=== PATIENT | female | born 1935 | race African-American/Black ===

== ENCOUNTER 2016-08-19 14:42 | Inpatient (IN) | payer OTHER ==
[2016-08-19 15:06] VITALS: BMI 30.8
--- NOTE | 2016-08-19 15:06 | PDOC ---
Rapid Medical Evaluation Chief Complaint: Nausea/Vomiting Time Seen by Provider: 08/19/16 15:01 Medical Evaluation: Allergies Allergy/AdvReac Type Severity Reaction Status Date / Time Penicillins Allergy Intermediate Rash Verified 08/19/16 15:00 oxycodone HCl [From Percocet] AdvReac Intermediate Verified 08/19/16 15:00 prednisone AdvReac Verified 08/19/16 15:00 08/19/16 15:01 [facility] sent patient for nausea and vomiting x 4 days. She is afebrile. Heart rate is normal. No abdominal tenderness. SHe appears well and not dehydrated, however she will require IV hydration, and basic labs. Pt is alert and oriented x 3.
[2016-08-19] MEDS ORDERED: ONDANSETRON 4 MG/2 ML VIAL IVPB ONE (15:44)
[2016-08-19] MEDS ORDERED: SODIUM CHLORIDE 1,000 ML IV SCH (15:45)
--- NOTE | 2016-08-19 15:48 | PDOC ---
History of Present Illness - General Chief Complaint: Nausea/Vomiting Stated Complaint: NAUSEA, VOMITING Time Seen by Provider: 08/19/16 15:01 - History of Present Illness Initial Comments: 08/19/16 15:45 81-year-old female who lives in assisted living, with an aide, who has a past medical history of diabetes, hypothyroidism, GERD, vertigo, CAD with 6 stents, COPD, GERD, prior PE. She is complaining of vomiting off and on all day today, and she states that she can't keep anything down She denies any blood in her vomitus, or coffee-ground material in her vomitus She is also had some diarrhea off and on, for a few days, but more so today She denies any black tarry stool or blood in her diarrhea She is complaining of associated abdominal pain, which she describes as diffuse She denies any chest pain, she denies any fevers or chills, she denies any cough or sputum She states that she feels very tired and weak She states that she took some of her medications today, but not all of her medications but doesn't know which medications she did not take Remainder the review of systems is negative Past History - Past Medical History Allergies/Adverse Reactions: Allergies Allergy/AdvReac Type Severity Reaction Status Date / Time Penicillins Allergy Intermediate Rash Verified 08/19/16 15:00 oxycodone HCl [From Percocet] AdvReac Intermediate Verified 08/19/16 15:00 prednisone AdvReac Verified 08/19/16 15:00 Home Medications: Ambulatory Orders Acetaminophen [Tylenol .Regular Strength -] 650 mg PO Q6H PRN #120 tablet Apixaban [Eliquis -] 5 mg PO BID #180 tablet 04/27/16 Isosorbide Mononitrate [Imdur -] 60 mg PO DAILY #90 tab.sr.24h 04/27/16 Levothyroxine [Synthroid -] 50 mcg PO DAILY@0700 #90 tablet 04/27/16 Losartan Potassium 25 mg PO DAILY #90 tablet 04/27/16 Magnesium Chloride [Slow-Mag -] 64 mg PO DAILY #90 tablet.sa 04/27/16 Meclizine HCl [Antivert -] 12.5 mg PO Q8H PRN #90 tablet 04/27/16 Metoprolol Succinate [Toprol XL -] 100 mg PO DAILY #90 tab.sr.24h 04/27/16 Polyethylene Glycol 3350 [Miralax 119 gm Btl -] 17 gm PO DAILY PRN #90 bottle Ranitidine HCl [Zantac] 150 mg PO HS PRN #90 tablet 04/27/16 Ranolazine [Ranexa] 500 mg PO BID #180 tab.er.12h 04/27/16 Simvastatin 40 mg PO HS #90 tablet 04/27/16 Cholecalciferol (Vitamin D3) [Vitamin D3 -] 4,000 unit PO DAILY 05/31/16 Docusate Sodium [Colace -] 100 mg PO BID 05/31/16 Tiotropium [place] [Spiriva] 1 inh PO DAILY 05/31/16 Lactulose (Oral Use) [Cephulac -] 20 gm PO DAILY udc 06/03/16 Albuterol Sulfate Inhaler - [Ventolin HFA Inhaler -] 1 inh PO Q4H PRN 08/19/16 Glipizide [Glucotrol -] 2.5 mg PO DAILY 08/19/16 Insulin Aspart [Novolog] 0 unit SQ AM 08/19/16 Mag Carb/Al Hydrox/Alginic AC [Gaviscon Extra Strength Liquid] 60 ml PO QID PRN 08/19/16 Phenylephrine HCl [Hemorrhoidal Suppository] 1 each RC HS PRN 08/19/16 Phenylephrine HCl/Witch Lyla [Preparation H Cooling Gel] 51 gm TP DAILY Anemia: No Asthma: Yes Cardiac Disorders: Yes (CAD, Stents, angina) CVA: No COPD: Yes Dementia: No Diabetes: Yes GI Disorders: Yes (esophageal reflux) Disorders: No HTN: Yes Hypercholesterolemia: Yes Liver Disease: No Suicide Attempt (Hx): No Seizures: No Thyroid Disease: Yes (hypo) - Surgical History Abdominal Surgery: Yes Appendectomy: Yes Cardiac Surgery: Yes (STENTS X 5) Cholecystectomy: No Lung Surgery: No Neurologic Surgery: No - Immunization History Immunization Up to Date: Yes - Psycho/Social/Smoking Cessation Hx Anxiety: No Suicidal Ideation: No Smoking Status: No Smoking History: Former smoker Have you smoked in the past 12 months: No Number of Cigarettes Smoked Daily: 0 If you are a former smoker, when did you quit?: 30 yrs ago Cigars Per Day: 0 Information on smoking cessation initiated: No Hx Alcohol Use: No Drug/Substance Use Hx: No Substance Use Type: None Hx Substance Use Treatment: No Review of Systems - Review of Systems Able to Perform ROS?: Yes Comments:: 08/19/16 15:47 12 point review of systems is as per history of present illness and otherwise negative *Physical Exam - Vital Signs Last Vital Signs Temp Pulse Resp BP Pulse Ox 98.3 F 78 20 142/53 95 08/19/16 15:00 08/19/16 15:00 08/19/16 15:00 08/19/16 15:00 08/19/16 15:00 - Physical Exam Comments: 08/19/16 15:47 Physical exam Last Vital Signs Temp Pulse Resp BP Pulse Ox 98.3 F 78 20 142/53 95 08/19/16 15:00 08/19/16 15:00 08/19/16 15:00 08/19/16 15:00 08/19/16 15:00 GENERAL: The patient is awake, alert, and fully oriented, and in no apparent distress. HEAD: Normal with no signs of trauma. EYES: Sclera anicteric, conjunctiva normal ENT: Mucous membranes slightly dry NECK: Normal range of motion, supple LUNGS: Breath sounds equal, clear to auscultation bilaterally. No wheezes, and no crackles. HEART: Regular rate and rhythm, normal S1 and S2 without murmur, rub or gallop. ABDOMEN: Normoactive bowel sounds without hepatosplenomegaly There is mild diffuse abdominal tenderness to palpation without guarding or rebound The abdomen is soft There is no CVA tenderness EXTREMITIES: Normal range of motion, no edema. No clubbing or cyanosis. No cords, erythema, or tenderness. NEUROLOGICAL: Cranial nerves II through XII grossly intact. Normal speech, normal gait. PSYCH: Normal mood, normal affect. SKIN: Warm, Dry, ED Treatment Course - LABORATORY CBC & Chemistry Diagram: 08/19/16 15:40 08/19/16 15:40 - RADIOLOGY Radiology Studies Ordered: Category Date Time Status ABDOMEN & PELVIS CT W/O CONTR [CT] Stat CT Scan 08/19/16 15:42 Ordered Medical Decision Making - Medical Decision Making 08/19/16 16:31 Nausea and vomiting, diarrhea, and abdominal pain and 81-year-old female with a complex past medical history Will start with IV hydration, labwork, and CAT scan EKG Normal sinus rhythm 69, left axis deviation -3 Normal AV and IV conduction time Normal QTC Lateral T-wave inversions are noted Inferior Q waves are noted Poor R wave progression across the anterior precordium is noted When compared to the EKG of 05/31/16 Today's EKG is unchanged from the prior EKG 08/19/16 17:04 Laboratory Results - last 24 hr 08/19/16 15:40 Sodium 143 Potassium 4.8 Chloride 107 Carbon Dioxide 26 Anion Gap 10 BUN 11 Creatinine 1.0 Creat Clearance w eGFR 53.08 Random Glucose 122 H Calcium 8.9 Magnesium 1.7 L Total Bilirubin 0.9 D AST 21 D ALT 9 L D Alkaline Phosphatase 53 Troponin I < 0.02 Total Protein 7.1 Albumin 3.3 L Total Amylase 79 Lipase 97 08/19/16 17:08 SIGN OUT Case discussed in detail with oncoming Emergency Physician including history, physical exam and ancillary studies. Oncoming Emergency Physician has assumed care for the patient and will complete the evaluation and treatment. Transfer of care to at 5 PM awaiting CBC, and CT scan of the abdomen and pelvis *DC/Admit/Observation/Transfer Diagnosis at time of Disposition: Epigastric abdominal pain Nausea & vomiting Qualifiers: Qualified Code(s): R11.2 - Nausea with vomiting, unspecified - Discharge Dispostion Admit: Yes
[2016-08-19] MEDS ORDERED: ONDANSETRON 4 MG/2 ML VIAL ONE (16:04)
[2016-08-19 16:20] LABS: ALBUMIN 3.3 g/dl (3.4-5.0); AMYLASE 79 U/L (25-115); ANION GAP 10 (8-16); CALCIUM 8.9 mg/dL (8.5-10.1); CO2 26 mmol/L (21-32); GLUCOSE,RANDOM 122 mg/dL (74-106); MAGNESIUM 1.7 mg/dL (1.8-2.4); SGPT/ALT 9 U/L (12-78)
[2016-08-19 16:24] LABS: ALK PHOS 53 U/L (45-117); BILIRUBIN,TOTAL 0.9 mg/dL (0.2-1.0); TOT PROT 7.1 g/dl (6.4-8.2); TROPONIN I < 0.02 ng/ml (0.00-0.05)
[2016-08-19 16:58] LABS: BASOPHIL 0.1 % (0-2.0); EOSINOPHIL 1.9 % (0-4.5); MCH 31.3 pg (25.7-33.7); MCHC 32.8 g/dl (32.0-36.0); MEAN CELL VOLUME 95.4 fl (80-96); MEAN PLT VOLUME 10.3 fl (7.5-11.1); NEUTROPHILS 63.6 % (42.8-82.8); PLATELET COUNT 182 K/MM3 (134-434); RDW 14.7 % (11.6-15.6); SGOT/AST 21 U/L (15-37); WHITE BLOOD COUNT 8.2 K/mm3 (4.0-10.0)
--- NOTE | 2016-08-19 19:58 | PDOC ---
History of Present Illness - General Chief Complaint: Nausea/Vomiting Stated Complaint: NAUSEA, VOMITING Time Seen by Provider: 08/19/16 15:01 Past History - Past Medical History Allergies/Adverse Reactions: Allergies Allergy/AdvReac Type Severity Reaction Status Date / Time Penicillins Allergy Intermediate Rash Verified 08/19/16 15:00 oxycodone HCl [From Percocet] AdvReac Intermediate Verified 08/19/16 15:00 prednisone AdvReac Verified 08/19/16 15:00 Home Medications: Ambulatory Orders Acetaminophen [Tylenol .Regular Strength -] 650 mg PO Q6H PRN #120 tablet Apixaban [Eliquis -] 5 mg PO BID #180 tablet 04/27/16 Isosorbide Mononitrate [Imdur -] 60 mg PO DAILY #90 tab.sr.24h 04/27/16 Levothyroxine [Synthroid -] 50 mcg PO DAILY@0700 #90 tablet 04/27/16 Losartan Potassium 25 mg PO DAILY #90 tablet 04/27/16 Magnesium Chloride [Slow-Mag -] 64 mg PO DAILY #90 tablet.sa 04/27/16 Meclizine HCl [Antivert -] 12.5 mg PO Q8H PRN #90 tablet 04/27/16 Metoprolol Succinate [Toprol XL -] 100 mg PO DAILY #90 tab.sr.24h 04/27/16 Polyethylene Glycol 3350 [Miralax 119 gm Btl -] 17 gm PO DAILY PRN #90 bottle Ranitidine HCl [Zantac] 150 mg PO HS PRN #90 tablet 04/27/16 Ranolazine [Ranexa] 500 mg PO BID #180 tab.er.12h 04/27/16 Simvastatin 40 mg PO HS #90 tablet 04/27/16 Cholecalciferol (Vitamin D3) [Vitamin D3 -] 4,000 unit PO DAILY 05/31/16 Docusate Sodium [Colace -] 100 mg PO BID 05/31/16 Tiotropium [place] [Spiriva] 1 inh PO DAILY 05/31/16 Lactulose (Oral Use) [Cephulac -] 20 gm PO DAILY udc 06/03/16 Albuterol Sulfate Inhaler - [Ventolin HFA Inhaler -] 1 inh PO Q4H PRN 08/19/16 Glipizide [Glucotrol -] 2.5 mg PO DAILY 08/19/16 Insulin Aspart [Novolog] 0 unit SQ AM 08/19/16 Mag Carb/Al Hydrox/Alginic AC [Gaviscon Extra Strength Liquid] 60 ml PO QID PRN 08/19/16 Phenylephrine HCl [Hemorrhoidal Suppository] 1 each RC HS PRN 08/19/16 Phenylephrine HCl/Witch Lyla [Preparation H Cooling Gel] 51 gm TP DAILY Anemia: No Asthma: Yes Cardiac Disorders: Yes (CAD, Stents, angina) CVA: No COPD: Yes Dementia: No Diabetes: Yes GI Disorders: Yes (esophageal reflux) Disorders: No HTN: Yes Hypercholesterolemia: Yes Liver Disease: No Suicide Attempt (Hx): No Seizures: No Thyroid Disease: Yes (hypo) - Surgical History Abdominal Surgery: Yes Appendectomy: Yes Cardiac Surgery: Yes (STENTS X 5) Cholecystectomy: No Lung Surgery: No Neurologic Surgery: No - Immunization History Immunization Up to Date: Yes - Psycho/Social/Smoking Cessation Hx Anxiety: No Suicidal Ideation: No Smoking Status: No Smoking History: Former smoker Have you smoked in the past 12 months: No Number of Cigarettes Smoked Daily: 0 If you are a former smoker, when did you quit?: 30 yrs ago Cigars Per Day: 0 Information on smoking cessation initiated: No Hx Alcohol Use: No Drug/Substance Use Hx: No Substance Use Type: None Hx Substance Use Treatment: No *Physical Exam - Vital Signs Last Vital Signs Temp Pulse Resp BP Pulse Ox 98.3 F 74 18 150/72 95 08/19/16 15:00 08/19/16 18:21 08/19/16 18:21 08/19/16 18:21 08/19/16 15:00 ED Treatment Course - LABORATORY CBC & Chemistry Diagram: 08/19/16 15:40 08/19/16 15:40 - ADDITIONAL ORDERS Additional order review: Laboratory Results 08/19/16 15:40 Sodium 143 Potassium 4.8 Chloride 107 Carbon Dioxide 26 Anion Gap 10 BUN 11 Creatinine 1.0 Creat Clearance w eGFR 53.08 Random Glucose 122 H Calcium 8.9 Magnesium 1.7 L Total Bilirubin 0.9 D AST 21 D ALT 9 L D Alkaline Phosphatase 53 Creatine Kinase 121 Troponin I < 0.02 Total Protein 7.1 Albumin 3.3 L Total Amylase 79 Lipase 97 08/19/16 15:40 RBC 4.10 MCV 95.4 MCHC 32.8 RDW 14.7 MPV 10.3 Neutrophils % 63.6 D Lymphocytes % 28.6 D Monocytes % 5.8 Eosinophils % 1.9 Basophils % 0.1 - Medications Given in the ED: ED Medications Discontinued Medications Generic Name Dose Route Start Last Admin Trade Name Freq PRN Reason Stop Dose Admin Ondansetron HCl 4 mg 08/19/16 15:44 08/19/16 16:08 Zofran Injection IVPB 08/19/16 15:45 4 mg ONCE ONE Administration *DC/Admit/Observation/Transfer Diagnosis at time of Disposition: Epigastric pain Nausea and vomiting Qualifiers: Vomiting type: unspecified Vomiting Intractability: non-intractable Qualified Code(s): R11.2 - Nausea with vomiting, unspecified - Discharge Dispostion Admit: Yes
[2016-08-19] MEDS ORDERED: RANITIDINE HCL 150 MG TABLET (FP) PO PRN (21:37)
[2016-08-19] MEDS ORDERED: ALBUTEROL SO4 6.7 GM HFA INHALER IH PRN (21:37)
[2016-08-19] MEDS ORDERED: POLYETHYLENE GLYCOL 3350 119 GM BTL PO PRN (21:37)
[2016-08-19] MEDS ORDERED: MECLIZINE HCL 12.5 MG TABLET PO PRN (21:37)
[2016-08-19] MEDS ORDERED: ACETAMINOPHEN 325 MG TABLET (FP) PO PRN (21:37)
[2016-08-19] MEDS ORDERED: ONDANSETRON 4 MG/2 ML VIAL IVPB PRN (21:44)
--- NOTE | 2016-08-19 21:45 | HP ---
Admitting History and Physical - Primary Care Physician PCP: Liyah Wang S - Admission Chief Complaint: intractable N/V/ abdominal pain History of Present Illness: 81-year-old female who lives in assisted living, with an aide, who has a past medical history of diabetes, hypothyroidism, GERD, vertigo, CAD with 6 stents, COPD, GERD, prior PE. She is complaining of vomiting off and on all day today, and she states that she can't keep anything down. She denies any blood in her vomitus, or coffee- ground material in her vomitus She is also had some diarrhea off and on, for a few days, but more so today. She denies any black tarry stool or blood in her diarrhea She is complaining of associated abdominal pain, which she describes as diffuse She denies any chest pain, she denies any fevers or chills, she denies any cough or sputum She states that she feels very tired and weak She states that she took 6 some of her medications today, but not all of her medications but doesn't know which medications she did not take Remainder the review of systems is negative History Source: Patient, Medical Record Limitations to Obtaining History: No Limitations - Past Medical History Cardiovascular: Yes: CAD, Deep Vein Thrombosis, HTN, Hyperlipdemia Pulmonary: Yes: COPD, Pulmonary Embolus Musculoskeletal: Yes: Chronic low back pain, Osteoarthritis Endocrine: Yes: Diabetes Mellitus, Hypothyroidism - Past Surgical History Past Surgical History: Yes: Stent - Smoking History Smoking history: Former smoker Have you smoked in the past 12 months: No Aproximately how many cigarettes per day: 0 If you are a former smoker, when did you quit?: 30 yrs ago - Alcohol/Substance Use Hx Alcohol Use: No History of Substance Use: reports: None - Social History Usual Living Arrangement: Yes: Assisted Living ADL: Support Services History of Recent Travel: No Home Medications - Allergies Allergies/Adverse Reactions: Allergies Allergy/AdvReac Type Severity Reaction Status Date / Time Penicillins Allergy Intermediate Rash Verified 08/19/16 15:00 oxycodone HCl [From Percocet] AdvReac Intermediate Verified 08/19/16 15:00 prednisone AdvReac Verified 08/19/16 15:00 - Home Medications Home Medications: Ambulatory Orders Acetaminophen [Tylenol .Regular Strength -] 650 mg PO Q6H PRN #120 tablet Apixaban [Eliquis -] 5 mg PO BID #180 tablet 04/27/16 Isosorbide Mononitrate [Imdur -] 60 mg PO DAILY #90 tab.sr.24h 04/27/16 Levothyroxine [Synthroid -] 50 mcg PO DAILY@0700 #90 tablet 04/27/16 Losartan Potassium 25 mg PO DAILY #90 tablet 04/27/16 Magnesium Chloride [Slow-Mag -] 64 mg PO DAILY #90 tablet.sa 04/27/16 Meclizine HCl [Antivert -] 12.5 mg PO Q8H PRN #90 tablet 04/27/16 Metoprolol Succinate [Toprol XL -] 100 mg PO DAILY #90 tab.sr.24h 04/27/16 Polyethylene Glycol 3350 [Miralax 119 gm Btl -] 17 gm PO DAILY PRN #90 bottle Ranitidine HCl [Zantac] 150 mg PO HS PRN #90 tablet 04/27/16 Ranolazine [Ranexa] 500 mg PO BID #180 tab.er.12h 04/27/16 Simvastatin 40 mg PO HS #90 tablet 04/27/16 Cholecalciferol (Vitamin D3) [Vitamin D3 -] 4,000 unit PO DAILY 05/31/16 Docusate Sodium [Colace -] 100 mg PO BID 05/31/16 Tiotropium [place] [Spiriva] 1 inh PO DAILY 05/31/16 Lactulose (Oral Use) [Cephulac -] 20 gm PO DAILY udc 06/03/16 Albuterol Sulfate Inhaler - [Ventolin HFA Inhaler -] 1 inh PO Q4H PRN 08/19/16 Glipizide [Glucotrol -] 2.5 mg PO DAILY 08/19/16 Insulin Aspart [Novolog] 0 unit SQ AM 08/19/16 Mag Carb/Al Hydrox/Alginic AC [Gaviscon Extra Strength Liquid] 60 ml PO QID PRN 08/19/16 Phenylephrine HCl [Hemorrhoidal Suppository] 1 each RC HS PRN 08/19/16 Phenylephrine HCl/Witch Lyla [Preparation H Cooling Gel] 51 gm TP DAILY Family Disease History - Family Disease History Family Disease History: Diabetes: Mother, Brother Review of Systems - Review of Systems Constitutional: reports: Loss of Appetite. denies: Chills, Fever, Lethargy Eyes: denies: Blind Spots, Blurred Vision, Double Vision HENT: denies: Difficult Swallowing, Epistaxis, Nasal Congestion Neck: denies: Stiffness, Tenderness Cardiovascular: denies: Chest Pain, Shortness of Breath Respiratory: denies: Cough, SOB Gastrointestinal: reports: Abdominal Pain, Bloating, Diarrhea, Indigestion, Nausea, Vomiting. denies: Constipation, Dysphagia, Melena, Rectal Bleeding, Vomiting Blood Genitourinary: denies: Dysuria, Flank Pain, Frequency Musculoskeletal: denies: Extremity Pain, Joint Pain Integumentary: denies: Bruising, Erythema Neurological: denies: Change in LOC, Change in Speech, Confusion, Dizziness Endocrine: denies: Unexplained Weight Gain, Unexplained Weight Loss Hematology/Lymphatic: denies: Easily Bruised, Excessive Bleeding Psychiatric: denies: Altered Sleep Pattern, Anxiety, Depression, Suicidal Physical Examination Vital Signs: Vital Signs Temperature 98.3 F 08/19/16 15:00 Pulse Rate 74 08/19/16 18:21 Respiratory Rate 18 08/19/16 18:21 Blood Pressure 150/72 08/19/16 18:21 O2 Sat by Pulse Oximetry (%) 95 08/19/16 15:00 Constitutional: Yes: No Distress, Calm Eyes: Yes: Conjunctiva Clear HENT: Yes: Atraumatic Neck: Yes: Supple Cardiovascular: Yes: Regular Rate and Rhythm Respiratory: Yes: CTA Bilaterally Gastrointestinal: Yes: Soft, Tenderness, Epigastrium. No: Distention, Tenderness, Rebound Renal/: No: CVA Tenderness - Left, CVA Tenderness - Right, Hematuria Musculoskeletal: No: Joint Stiffness, Joint Swelling Extremities: No: Cold, Cool Edema: No Peripheral Pulses WNL: Yes Integumentary: No: Pressure Ulcer, Rash, Venous Stasis Changes Neurological: Yes: WNL, Alert, Oriented ...Motor Strength: WNL Psychiatric: Yes: WNL, Alert, Oriented. No: Agitated, Suicidal Ideation Imaging - Results Other: Report Reviewed Assessment/Plan 81-year-old female who lives in assisted living, with an aide, who has a past medical history of diabetes, hypothyroidism, GERD, vertigo, CAD with 6 stents, COPD, GERD, prior PE. She is complaining of vomiting off and on all day today, and she states that she can't keep anything down also had some diarrhea off and on, for a few days, but more so today Intractable N/V IVF; IV zofran; abdomen CT as ordered IV PPI GI eval clear fluids diet falls decubs DVT PFXd/w pt and staff
[2016-08-19] MEDS ORDERED: DOCUSATE SODIUM 100 MG CAPSULE (FP) PO ONE (22:48)
[2016-08-19] MEDS: DOCUSATE SODIUM 100 MG CAPSULE (FP) PO SCH (23:33)
[2016-08-19] MEDS: RANOLAZINE E.R. 500 MG TABLET (FP) PO SCH (23:33)
[2016-08-19] MEDS: APIXABAN 5 MG TABLET PO SCH (23:33)
[2016-08-19] MEDS: ATORVASTATIN CA 20 MG TABLET (FP) PO SCH (23:33)
[2016-08-20] MEDS: glipiZIDE 5 MG TABLET (FP) PO SCH (06:07)
[2016-08-20] MEDS: LEVOTHYROXINE NA 50 MCG TABLET (FP) PO SCH (06:08)
[2016-08-20] MEDS: SODIUM CHLORIDE 1,000 ML IV SCH (08:00)
[2016-08-20] MEDS: ACLIDINIUM BROMIDE 400 MCG/INH AERO.POWD IH SCH ×3 (10:00→21:58)
[2016-08-20] MEDS: MAGNESIUM CL 64 MG TABLET.SA PO SCH ×2 (10:00→13:50)
[2016-08-20] MEDS ORDERED: PANTOPRAZOLE SODIUM 40 MG in SODIUM CHLORIDE 100 ML IVPB SCH (10:00)
--- NOTE | 2016-08-20 10:31 | PN ---
Progress Note, Physician Chief Complaint: in bed nad on clear fluids diet; tolerated OK, still with stomach discomfort - Current Medication List Current Medications: Active Medications Acetaminophen (Tylenol -) 650 mg PO Q6H PRN PRN Reason: FEVER OR PAIN Aclidinium [place] ([place]udorza -) 1 puff IH BID [facility] Albuterol Sulfate (Ventolin Hfa Inhaler -) 1 puff IH Q4H PRN PRN Reason: SHORT OF BREATH/WHEEZING Apixaban (Eliquis -) 5 mg PO BID [facility] Last Admin: 08/19/16 23:33 Dose: 5 mg Atorvastatin Calcium (Lipitor -) 20 mg PO HS [facility] Last Admin: 08/19/16 23:33 Dose: 20 mg Cholecalciferol (Vitamin D3 -) 4,000 unit PO DAILY [facility] Docusate Sodium (Colace -) 100 mg PO BID [facility] Last Admin: 08/19/16 23:33 Dose: 100 mg Glipizide (Glucotrol -) 2.5 mg PO DAILY@0700 [facility] Last Admin: 08/20/16 06:07 Dose: 2.5 mg Sodium Chloride (Normal Saline -) 1,000 mls @ 100 mls/hr IV ASDIR [facility] Isosorbide Mononitrate (Imdur -) 60 mg PO DAILY [facility] Lactulose (Cephulac (Oral Use)) 20 gm PO DAILY [facility] Levothyroxine Sodium (Synthroid -) 50 mcg PO DAILY@0700 [facility] Last Admin: 08/20/16 06:08 Dose: 50 mcg Losartan Potassium (Cozaar -) 25 mg PO DAILY [facility] Magnesium Chloride (Slow-Mag -) 64 mg PO DAILY [facility] Meclizine HCl (Antivert -) 12.5 mg PO Q8H PRN PRN Reason: VERTIGO Metoprolol Succinate (Toprol Xl -) 100 mg PO DAILY [facility] Ondansetron HCl (Zofran Injection) 4 mg IVPB Q6H PRN PRN Reason: NAUSEA Pantoprazole Sodium (Protonix 40mg Ivpb (Pre-Docked)) 40 mg IVPB DAILY [facility] Polyethylene Glycol (Miralax (For Daily Use) -) 17 gm PO DAILY PRN PRN Reason: CONSTIPATION Ranitidine HCl (Zantac -) 150 mg PO HS PRN PRN Reason: stomach pain Ranolazine (Ranexa -) 500 mg PO BID [facility] Last Admin: 08/19/16 23:33 Dose: 500 mg - Objective Vital Signs: Vital Signs Temperature 98.5 F 08/20/16 06:00 Pulse Rate 72 08/20/16 06:00 Respiratory Rate 18 08/20/16 06:00 Blood Pressure 135/55 08/20/16 06:00 O2 Sat by Pulse Oximetry (%) 96 08/20/16 03:54 Constitutional: Yes: No Distress, Calm Eyes: Yes: Conjunctiva Clear HENT: Yes: Atraumatic Neck: Yes: Supple Cardiovascular: Yes: Regular Rate and Rhythm Respiratory: Yes: CTA Bilaterally Gastrointestinal: Yes: Soft, Tenderness, Epigastrium. No: Distention Genitourinary: No: CVA Tenderness - Left, CVA Tenderness - Right Musculoskeletal: No: Joint Stiffness, Joint Swelling Extremities: No: Cold, Cool Edema: No Peripheral Pulses WNL: Yes Integumentary: No: Rash, Venous Stasis Changes Neurological: Yes: WNL, Alert, Oriented ...Motor Strength: WNL Psychiatric: Yes: WNL, Alert, Oriented. No: Agitated, Suicidal Ideation - ....Imaging Other: Report Reviewed Assessment/Plan 81-year-old female who lives in assisted living, with an aide, who has a past medical history of diabetes, hypothyroidism, GERD, vertigo, CAD with 6 stents, COPD, GERD, prior PE. Intractable N/V and diarrhea IVF; IV zofran; abdomen CT noted IV PPI GI eval clear fluids diet falls decubs DVT PFXd/w pt and staff
[2016-08-20] MEDS: DOCUSATE SODIUM 100 MG CAPSULE (FP) PO SCH ×2 (10:54→21:57)
[2016-08-20] MEDS: LACTULOSE 20 GM/30 ML UDC (FOR ORAL USE ONLY) PO SCH (10:54)
[2016-08-20] MEDS: PANTOPRAZOLE SODIUM 40 MG/100 ML PRE-DOCKED IVPB SCH (10:54)
[2016-08-20] MEDS: CHOLECALCIFEROL (VITAMIN D3) 1,000 UNIT TABLET (FP) PO SCH (10:54)
[2016-08-20] MEDS: APIXABAN 5 MG TABLET PO SCH ×2 (10:55→21:58)
[2016-08-20] MEDS: METOPROLOL SUCCINATE 100 MG TAB.SR.24H (FP) PO SCH (10:55)
[2016-08-20] MEDS: ISOSORBIDE MONONITRATE 60 MG TAB.SR.24H (FP) PO SCH (10:55)
[2016-08-20] MEDS: LOSARTAN POTASSIUM 25 MG TABLET PO SCH (10:55)
[2016-08-20] MEDS: RANOLAZINE E.R. 500 MG TABLET (FP) PO SCH ×2 (10:55→21:58)
[2016-08-20] MEDS ORDERED: PNEUMOC 13-VAL CONJ-DIP CRM/PF 0.5 ML DISP.SYRIN IM ONE (13:00)
[2016-08-20 13:35] LABS: URINE APPEARANCE CLEAR; URINE BILIRUBIN NEGATIVE (NEGATIVE); URINE BLOOD NEGATIVE (NEGATIVE); URINE COLOR YELLOW; URINE GLUCOSE (UA) NEGATIVE (NEGATIVE); URINE KETONE NEGATIVE (NEGATIVE); URINE NITRITE NEGATIVE (NEGATIVE); URINE PROTEIN NEGATIVE (NEGATIVE); URINE UROBILINOGEN NEGATIVE E.U./dl (0.2-1.0)
[2016-08-20 13:36] LABS: URINE LEUK ESTERASE TRACE (NEGATIVE)
[2016-08-20 13:39] LABS: GRANULAR CASTS 1 /lpf; URINE MUCUS RARE; URINE RBC <1 /hpf (0-3); URINE WBC 2 /hpf (3-5)
--- NOTE | 2016-08-20 14:12 | EKG ---
Test Reason : Blood Pressure : / mmHG Vent. Rate : 069 BPM Atrial Rate : 069 BPM P-R Int : 174 ms QRS Dur : 066 ms QT Int : 390 ms P-R-T Axes : 055 -03 108 degrees QTc Int : 417 ms NORMAL SINUS RHYTHM CANNOT RULE OUT INFERIOR INFARCT , AGE UNDETERMINED T WAVE ABNORMALITY, CONSIDER LATERAL ISCHEMIA ABNORMAL ECG WHEN COMPARED WITH ECG OF 31-MAY-2016 17:27, NO SIGNIFICANT CHANGE WAS FOUND Confirmed by DAVID HERNANDEZ MD ([id number]) on 08/20/2016 2:12:22 PM Referred By: Confirmed By:DAVID HERNANDEZ MD
[2016-08-20] MEDS: BACITRACIN 30 GM TUBE TOPICAL OINTMENT TP SCH (15:44)
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
[2016-08-20] MEDS ORDERED: PT OWN MED DRAWER 7, Y5N ONE (21:25)
[2016-08-20] MEDS: ATORVASTATIN CA 20 MG TABLET (FP) PO SCH (21:58)
[2016-08-21] MEDS: glipiZIDE 5 MG TABLET (FP) PO SCH (06:35)
[2016-08-21] MEDS: LEVOTHYROXINE NA 50 MCG TABLET (FP) PO SCH (06:35)
[2016-08-21] MEDS: DOCUSATE SODIUM 100 MG CAPSULE (FP) PO SCH ×2 (10:57→22:38)
[2016-08-21] MEDS: LOSARTAN POTASSIUM 25 MG TABLET PO SCH (10:57)
[2016-08-21] MEDS: METOPROLOL SUCCINATE 100 MG TAB.SR.24H (FP) PO SCH (10:57)
[2016-08-21] MEDS: CHOLECALCIFEROL (VITAMIN D3) 1,000 UNIT TABLET (FP) PO SCH (10:57)
[2016-08-21] MEDS: RANOLAZINE E.R. 500 MG TABLET (FP) PO SCH ×2 (10:57→22:38)
[2016-08-21] MEDS: ISOSORBIDE MONONITRATE 60 MG TAB.SR.24H (FP) PO SCH (10:57)
[2016-08-21] MEDS: PANTOPRAZOLE SODIUM 40 MG/100 ML PRE-DOCKED IVPB SCH (10:58)
[2016-08-21] MEDS: MAGNESIUM CL 64 MG TABLET.SA PO SCH (10:58)
[2016-08-21] MEDS: APIXABAN 5 MG TABLET PO SCH ×2 (10:59→22:38)
[2016-08-21] MEDS: LACTULOSE 20 GM/30 ML UDC (FOR ORAL USE ONLY) PO SCH (10:59)
[2016-08-21] MEDS: SODIUM CHLORIDE 1,000 ML IV SCH (11:00)
[2016-08-21] MEDS: ACLIDINIUM BROMIDE 400 MCG/INH AERO.POWD IH SCH ×2 (11:00→22:38)
[2016-08-21] MEDS: BACITRACIN 30 GM TUBE TOPICAL OINTMENT TP SCH (11:00)
--- NOTE | 2016-08-21 14:25 | PN ---
Progress Note, Physician Chief Complaint: in bed nad feels better tolerated clear fluids diet UGI series ordered per GI - Current Medication List Current Medications: Active Medications Acetaminophen (Tylenol -) 650 mg PO Q6H PRN PRN Reason: FEVER OR PAIN Aclidinium [place] (Tudorza -) 1 puff IH BID [facility] Last Admin: 08/21/16 11:00 Dose: 1 puff Albuterol Sulfate (Ventolin Hfa Inhaler -) 1 puff IH Q4H PRN PRN Reason: SHORT OF BREATH/WHEEZING Apixaban (Eliquis -) 5 mg PO BID [facility] Last Admin: 08/21/16 10:59 Dose: 5 mg Atorvastatin Calcium (Lipitor -) 20 mg PO HS [facility] Last Admin: 08/20/16 21:58 Dose: 20 mg Bacitracin (Bacitracin -) 1 applic TP DAILY [facility] Last Admin: 08/21/16 11:00 Dose: 1 applic Cholecalciferol (Vitamin D3 -) 4,000 unit PO DAILY [facility] Last Admin: 08/21/16 10:57 Dose: 4,000 unit Docusate Sodium (Colace -) 100 mg PO BID [facility] Last Admin: 08/21/16 10:57 Dose: 100 mg Glipizide (Glucotrol -) 2.5 mg PO DAILY@0700 [facility] Last Admin: 08/21/16 06:35 Dose: Not Given Sodium Chloride (Normal Saline -) 1,000 mls @ 100 mls/hr IV ASDIR [facility] Last Admin: 08/21/16 11:00 Dose: Not Given Isosorbide Mononitrate (Imdur -) 60 mg PO DAILY [facility] Last Admin: 08/21/16 10:57 Dose: 60 mg Lactulose (Cephulac (Oral Use)) 20 gm PO DAILY [facility] Last Admin: 08/21/16 10:59 Dose: Not Given Levothyroxine Sodium (Synthroid -) 50 mcg PO DAILY@0700 [facility] Last Admin: 08/21/16 06:35 Dose: Not Given Losartan Potassium (Cozaar -) 25 mg PO DAILY [facility] Last Admin: 08/21/16 10:57 Dose: 25 mg Magnesium Chloride (Slow-Mag -) 64 mg PO DAILY [facility] Last Admin: 08/21/16 10:58 Dose: 64 mg Meclizine HCl (Antivert -) 12.5 mg PO Q8H PRN PRN Reason: VERTIGO Metoprolol Succinate (Toprol Xl -) 100 mg PO DAILY [facility] Last Admin: 08/21/16 10:57 Dose: 100 mg Ondansetron HCl (Zofran Injection) 4 mg IVPB Q6H PRN PRN Reason: NAUSEA Pantoprazole Sodium (Protonix 40mg Ivpb (Pre-Docked)) 40 mg IVPB DAILY [facility] Last Admin: 08/21/16 10:58 Dose: 40 mg Polyethylene Glycol (Miralax (For Daily Use) -) 17 gm PO DAILY PRN PRN Reason: CONSTIPATION Ranitidine HCl (Zantac -) 150 mg PO HS PRN PRN Reason: stomach pain Ranolazine (Ranexa -) 500 mg PO BID [facility] Last Admin: 08/21/16 10:57 Dose: 500 mg - Objective Vital Signs: Vital Signs Temperature 98.4 F 08/21/16 08:35 Pulse Rate 66 08/21/16 08:35 Respiratory Rate 20 08/21/16 08:35 Blood Pressure 160/74 08/21/16 08:35 O2 Sat by Pulse Oximetry (%) 91 L 08/20/16 21:00 Constitutional: Yes: No Distress, Calm Eyes: Yes: Conjunctiva Clear HENT: Yes: Atraumatic Neck: Yes: Supple Cardiovascular: Yes: Regular Rate and Rhythm Respiratory: Yes: CTA Bilaterally Gastrointestinal: Yes: Soft. No: Distention, Tenderness Genitourinary: No: CVA Tenderness - Left, CVA Tenderness - Right Musculoskeletal: No: Joint Stiffness, Joint Swelling Extremities: No: Cold, Cool Edema: No Peripheral Pulses WNL: Yes Neurological: Yes: WNL, Alert, Oriented ...Motor Strength: WNL Psychiatric: Yes: WNL, Alert, Oriented. No: Agitated - ....Imaging Other: Report Reviewed Assessment/Plan 81-year-old female who lives in assisted living, with an aide, who has a past medical history of diabetes, hypothyroidism, GERD, vertigo, CAD with 6 stents, COPD, GERD, prior PE. Intractable N/V and diarrhea IVF; IV zofran; abdomen CT noted IV PPI further w/u per GI clear fluids diet falls decubs DVT PFXd/w pt and staff
[2016-08-21] MEDS ORDERED: LOSARTAN POTASSIUM 25 MG TABLET PO ONE (15:30)
--- NOTE | 2016-08-21 16:11 | PN ---
GI Progress Note Subjective: No acute events Complains of nausea No vomiting reported UGIS limited study as she could not drink enough gastrograffin: no obvious gastric outlet obstruction seen Abdominal US revealed slightly distended GB with sludge and small stones - Objective Vital Signs: Vital Signs Temperature 98.9 F 08/21/16 14:25 Pulse Rate 78 08/21/16 14:25 Respiratory Rate 18 08/21/16 14:25 Blood Pressure 181/82 08/21/16 14:25 O2 Sat by Pulse Oximetry (%) 91 L 08/20/16 21:00 Constitutional: Calm Eyes: No: Sclera Icterus Cardiovascular: Yes: Regular Rate and Rhythm Respiratory: Yes: Diminished (at bases, poorinsp effort) Gastrointestinal Inspection: No: Distention ...Auscultate: Yes: Normoactive Bowel Sounds ...Palpate: Yes: Tenderness (LUQ/RUQ). No: Guarding ...Percussion: No: Tympanitic Labs: No Labs today Problem List - Problems (1) Nausea & vomiting Assessment/Plan: No vomiting, + nausea Trial of low dose reglan If persistent nausea, may need to pursue upper endoscopy with eliquis held if feasible. need clarification iof she has capacity to consent for procedures Code(s): R11.2 - NAUSEA WITH VOMITING, UNSPECIFIED Qualifiers: Vomiting type: unspecified Vomiting Intractability: non-intractable Qualified Code(s): R11.2 - Nausea with vomiting, unspecified
[2016-08-21] MEDS: METOCLOPRAMIDE HCL INJECTION 10 MG/2 ML VIAL IVPB SCH (20:07)
[2016-08-21] MEDS ORDERED: PT OWN MED DRAWER 7, Y5N ONE (21:38)
[2016-08-21] MEDS: ATORVASTATIN CA 20 MG TABLET (FP) PO SCH (22:38)
[2016-08-22] MEDS: METOCLOPRAMIDE HCL INJECTION 10 MG/2 ML VIAL IVPB SCH ×2 (02:27→11:01)
[2016-08-22] MEDS: glipiZIDE 5 MG TABLET (FP) PO SCH (06:37)
[2016-08-22] MEDS: LEVOTHYROXINE NA 50 MCG TABLET (FP) PO SCH (06:37)
[2016-08-22 08:16] LABS: BASOPHIL 0.6 % (0-2.0); EOSINOPHIL 5.2 % (0-4.5); MCH 31.2 pg (25.7-33.7); MCHC 33.2 g/dl (32.0-36.0); MEAN CELL VOLUME 93.9 fl (80-96); MEAN PLT VOLUME 10.5 fl (7.5-11.1); NEUTROPHILS 53.3 % (42.8-82.8); PLATELET COUNT 162 K/MM3 (134-434); RDW 14.3 % (11.6-15.6); WHITE BLOOD COUNT 5.5 K/mm3 (4.0-10.0)
[2016-08-22 09:05] LABS: ALBUMIN 3.2 g/dl (3.4-5.0); BILIRUBIN,TOTAL 0.8 mg/dL (0.2-1.0); CALCIUM 8.7 mg/dL (8.5-10.1); TOT PROT 6.9 g/dl (6.4-8.2)
[2016-08-22 10:14] LABS: URINE APPEARANCE CLEAR; URINE BILIRUBIN NEGATIVE (NEGATIVE); URINE BLOOD NEGATIVE (NEGATIVE); URINE COLOR YELLOW; URINE GLUCOSE (UA) NEGATIVE (NEGATIVE); URINE KETONE NEGATIVE (NEGATIVE); URINE LEUK ESTERASE NEGATIVE (NEGATIVE); URINE NITRITE NEGATIVE (NEGATIVE); URINE PROTEIN NEGATIVE (NEGATIVE); URINE UROBILINOGEN NEGATIVE E.U./dl (0.2-1.0)
[2016-08-22] MEDS ORDERED: PT OWN MED DRAWER 7, Y5N ONE ×2 (10:58→22:00)
[2016-08-22] MEDS: ISOSORBIDE MONONITRATE 60 MG TAB.SR.24H (FP) PO SCH (11:01)
[2016-08-22] MEDS: DOCUSATE SODIUM 100 MG CAPSULE (FP) PO SCH ×2 (11:01→22:31)
[2016-08-22] MEDS: METOPROLOL SUCCINATE 100 MG TAB.SR.24H (FP) PO SCH (11:01)
[2016-08-22] MEDS: RANOLAZINE E.R. 500 MG TABLET (FP) PO SCH ×2 (11:01→22:31)
[2016-08-22] MEDS: CHOLECALCIFEROL (VITAMIN D3) 1,000 UNIT TABLET (FP) PO SCH (11:01)
[2016-08-22] MEDS: APIXABAN 5 MG TABLET PO SCH ×2 (11:02→22:31)
[2016-08-22] MEDS: MAGNESIUM CL 64 MG TABLET.SA PO SCH (11:02)
[2016-08-22] MEDS: LOSARTAN POTASSIUM 25 MG TABLET PO SCH (11:03)
[2016-08-22] MEDS: ACLIDINIUM BROMIDE 400 MCG/INH AERO.POWD IH SCH ×2 (11:40→22:31)
[2016-08-22] MEDS: PANTOPRAZOLE SODIUM 40 MG/100 ML PRE-DOCKED IVPB SCH (11:41)
[2016-08-22] MEDS: BACITRACIN 30 GM TUBE TOPICAL OINTMENT TP SCH (11:46)
--- NOTE | 2016-08-22 12:52 | PN ---
Progress Note, Physician Chief Complaint: in bed seems axox3 today but per H staff last evening she was confused and agitated; UA negative; to check UCx; head CT negative Hungry, no N/V no abdominal pain - Current Medication List Current Medications: Active Medications Acetaminophen (Tylenol -) 650 mg PO Q6H PRN PRN Reason: FEVER OR PAIN Aclidinium [place] (Tudorza -) 1 puff IH BID [facility] Last Admin: 08/22/16 11:40 Dose: 1 puff Albuterol Sulfate (Ventolin Hfa Inhaler -) 1 puff IH Q4H PRN PRN Reason: SHORT OF BREATH/WHEEZING Apixaban (Eliquis -) 5 mg PO BID [facility] Last Admin: 08/22/16 11:02 Dose: 5 mg Atorvastatin Calcium (Lipitor -) 20 mg PO HS [facility] Last Admin: 08/21/16 22:38 Dose: 20 mg Bacitracin (Bacitracin -) 1 applic TP DAILY [facility] Last Admin: 08/22/16 11:46 Dose: 1 applic Cholecalciferol (Vitamin D3 -) 4,000 unit PO DAILY [facility] Last Admin: 08/22/16 11:01 Dose: 4,000 unit Docusate Sodium (Colace -) 100 mg PO BID [facility] Last Admin: 08/22/16 11:01 Dose: 100 mg Glipizide (Glucotrol -) 2.5 mg PO DAILY@0700 [facility] Last Admin: 08/22/16 06:37 Dose: 2.5 mg Isosorbide Mononitrate (Imdur -) 60 mg PO DAILY [facility] Last Admin: 08/22/16 11:01 Dose: 60 mg Levothyroxine Sodium (Synthroid -) 50 mcg PO DAILY@0700 [facility] Last Admin: 08/22/16 06:37 Dose: 50 mcg Losartan Potassium (Cozaar -) 25 mg PO DAILY [facility] Last Admin: 08/22/16 11:03 Dose: 25 mg Magnesium Chloride (Slow-Mag -) 64 mg PO DAILY [facility] Last Admin: 08/22/16 11:02 Dose: 64 mg Metoprolol Succinate (Toprol Xl -) 100 mg PO DAILY [facility] Last Admin: 08/22/16 11:01 Dose: 100 mg Ondansetron HCl (Zofran Injection) 4 mg IVPB Q6H PRN PRN Reason: NAUSEA Pantoprazole Sodium (Protonix 40mg Ivpb (Pre-Docked)) 40 mg IVPB DAILY [facility] Last Admin: 08/22/16 11:41 Dose: 40 mg Polyethylene Glycol (Miralax (For Daily Use) -) 17 gm PO DAILY PRN PRN Reason: CONSTIPATION Ranitidine HCl (Zantac -) 150 mg PO HS PRN PRN Reason: stomach pain Ranolazine (Ranexa -) 500 mg PO BID [facility] Last Admin: 08/22/16 11:01 Dose: 500 mg - Objective Vital Signs: Vital Signs Temperature 98.6 F 08/22/16 10:59 Pulse Rate 73 08/22/16 10:59 Respiratory Rate 20 08/22/16 10:59 Blood Pressure 148/74 08/22/16 10:59 O2 Sat by Pulse Oximetry (%) 94 L 08/21/16 21:00 Constitutional: Yes: No Distress, Calm Eyes: Yes: Conjunctiva Clear HENT: Yes: Atraumatic Neck: Yes: Supple Cardiovascular: Yes: Regular Rate and Rhythm Respiratory: Yes: CTA Bilaterally Gastrointestinal: Yes: Soft. No: Distention, Tenderness Genitourinary: No: CVA Tenderness - Left, CVA Tenderness - Right Musculoskeletal: No: Joint Stiffness, Joint Swelling Extremities: No: Cold, Cool Edema: No Peripheral Pulses WNL: Yes Integumentary: No: Rash, Venous Stasis Changes Neurological: Yes: WNL, Alert, Oriented ...Motor Strength: WNL Psychiatric: Yes: WNL, Alert, Oriented. No: Agitated Labs: CBC, BMP 08/22/16 06:00 08/22/16 06:00 - ....Imaging Other: Report Reviewed Assessment/Plan 81-year-old female who lives in assisted living, with an aide, who has a past medical history of diabetes, hypothyroidism, GERD, vertigo, CAD with 6 stents, COPD, GERD, prior PE. Intractable N/V and diarrhea; improved IVF; IV zofran; IV PPI further w/u per GI advance diet as tolerated psychitary eval for confusion and capacity also d/w pt about HCP she said she would like her friends Keya Cartwright and Ilan Momin to be her HCP and NOK, not her family or relatives; will ask for HCP papers to see is she is able to sign HCP forms. D/w Keya Cartwright she was aware about the above. falls decubs DVT PFXd/w pt and staff
[2016-08-22] MEDS ORDERED: WITCH HAZEL 50% (TUCKS) 40 PAD/JAR PAD TP PRN (16:09)
--- NOTE | 2016-08-22 17:24 | PN ---
GI Progress Note Subjective: GI NOte: Nausea and vomiting has resolved. Asking for more to eat. Dr Wang has already advanced to full liquids for dinner - Objective Vital Signs: Vital Signs Temperature 97.7 F 08/22/16 13:40 Pulse Rate 67 08/22/16 13:40 Respiratory Rate 18 08/22/16 13:40 Blood Pressure 148/74 08/22/16 13:40 O2 Sat by Pulse Oximetry (%) 91 L 08/22/16 11:00 Constitutional: Calm ...Auscultate: Yes: Normoactive Bowel Sounds ...Palpate: Yes: Soft, Other (nontender) Labs: CBC, BMP 08/22/16 06:00 08/22/16 06:00 Assessment/Plan Resolving gastroparesis. Can advance diet as tolerated. Dr Duke wll be covering this weekend. Please call him as needed.
--- NOTE | 2016-08-22 18:14 | CON.PSY ---
Psychiatry Consult Chief Complaint: I am feeling better but have trouble remembering things well. - Previous Psychiatric Treatment Outpatient: None Inpatient: None - Previous Substance Abuse Treatment Outpatient: None Inpatient: None - Current Medications Current Medications: Active Medications Acetaminophen (Tylenol -) 650 mg PO Q6H PRN PRN Reason: FEVER OR PAIN Aclidinium [place] (Tudorza -) 1 puff IH BID [facility] Last Admin: 08/22/16 11:40 Dose: 1 puff Albuterol Sulfate (Ventolin Hfa Inhaler -) 1 puff IH Q4H PRN PRN Reason: SHORT OF BREATH/WHEEZING Apixaban (Eliquis -) 5 mg PO BID [facility] Last Admin: 08/22/16 11:02 Dose: 5 mg Atorvastatin Calcium (Lipitor -) 20 mg PO [facility] Last Admin: 08/21/16 22:38 Dose: 20 mg Bacitracin (Bacitracin -) 1 applic TP DAILY [facility] Last Admin: 08/22/16 11:46 Dose: 1 applic Cholecalciferol (Vitamin D3 -) 4,000 unit PO DAILY [facility] Last Admin: 08/22/16 11:01 Dose: 4,000 unit Docusate Sodium (Colace -) 100 mg PO BID [facility] Last Admin: 08/22/16 11:01 Dose: 100 mg Glipizide (Glucotrol -) 2.5 mg PO DAILY@0700 [facility] Last Admin: 08/22/16 06:37 Dose: 2.5 mg Isosorbide Mononitrate (Imdur -) 60 mg PO DAILY [facility] Last Admin: 08/22/16 11:01 Dose: 60 mg Levothyroxine Sodium (Synthroid -) 50 mcg PO DAILY@0700 [facility] Last Admin: 08/22/16 06:37 Dose: 50 mcg Losartan Potassium (Cozaar -) 50 mg PO DAILY [facility] Magnesium Chloride (Slow-Mag -) 64 mg PO DAILY [facility] Last Admin: 08/22/16 11:02 Dose: 64 mg Metoprolol Succinate (Toprol Xl -) 100 mg PO DAILY [facility] Last Admin: 08/22/16 11:01 Dose: 100 mg Ondansetron HCl (Zofran Injection) 4 mg IVPB Q6H PRN PRN Reason: NAUSEA Pantoprazole Sodium (Protonix 40mg Ivpb (Pre-Docked)) 40 mg IVPB DAILY [facility] Last Admin: 08/22/16 11:41 Dose: 40 mg Polyethylene Glycol (Miralax (For Daily Use) -) 17 gm PO DAILY PRN PRN Reason: CONSTIPATION Ranitidine HCl (Zantac -) 150 mg PO HS PRN PRN Reason: stomach pain Ranolazine (Ranexa -) 500 mg PO BID [facility] Last Admin: 08/22/16 11:01 Dose: 500 mg Witch Lyla/Glycerin (Tucks Pads -) 0 pad TP PRN PRN PRN Reason: HEMORRHOIDS - Allergies Allergies: Allergies Allergy/AdvReac Type Severity Reaction Status Date / Time Penicillins Allergy Intermediate Rash Verified 08/19/16 15:00 oxycodone HCl [From Percocet] AdvReac Intermediate Verified 08/19/16 15:00 prednisone AdvReac Verified 08/19/16 15:00 - Current Living Status Usual Living Arrangement: Assisted Living - Current Mental Status Evaluation Appearance: Well Groomed Attitude: Cooperative - Affect Affect: Constrictive Appropriateness: Appropriate to Content - Mood Mood: Euthymic - Speech/Language Expressive: Coherent - Psychomotor Activity Psychomotor Activity: Normal - Thought Process Thought Process: Intact - Thought Content Hallucinations: Absent Delusions: Absent - Self Perception Self Perception: No Impairment - Cognition Attention: Alert, Diminished Orientation: Time, Person Memory, Immediate Recall: Impaired Memory, Short Term: 1/3 Memory, Remote with Promptin/3 - Concentration Serial Sevens Intact: No Simple Calculations Intact: No - Abstraction Proverb Interpretation: Impaired Judgement: Intact - Insight Insight: Intact - Impulse Control Impulse Control: Good Control - Suicidal Ideation Suicidal Ideation: No - Homicidal Ideation Homicidal Ideation: No Assessment/Plan Patient has the capacity at this time.
[2016-08-22] MEDS: ATORVASTATIN CA 20 MG TABLET (FP) PO SCH (22:31)
[2016-08-23] MEDS: glipiZIDE 5 MG TABLET (FP) PO SCH (06:40)
[2016-08-23] MEDS: LEVOTHYROXINE NA 50 MCG TABLET (FP) PO SCH (06:41)
[2016-08-23] MEDS: PANTOPRAZOLE SODIUM 40 MG/100 ML PRE-DOCKED IVPB SCH (10:53)
[2016-08-23] MEDS: CHOLECALCIFEROL (VITAMIN D3) 1,000 UNIT TABLET (FP) PO SCH (10:54)
[2016-08-23] MEDS: MAGNESIUM CL 64 MG TABLET.SA PO SCH (10:55)
[2016-08-23] MEDS: ISOSORBIDE MONONITRATE 60 MG TAB.SR.24H (FP) PO SCH (10:55)
[2016-08-23] MEDS: LOSARTAN POTASSIUM 50 MG TABLET (FP) PO SCH (10:55)
[2016-08-23] MEDS: APIXABAN 5 MG TABLET PO SCH ×2 (10:55→21:41)
[2016-08-23] MEDS: RANOLAZINE E.R. 500 MG TABLET (FP) PO SCH ×2 (10:55→21:41)
[2016-08-23] MEDS: DOCUSATE SODIUM 100 MG CAPSULE (FP) PO SCH ×2 (10:55→21:40)
[2016-08-23] MEDS: METOPROLOL SUCCINATE 100 MG TAB.SR.24H (FP) PO SCH (10:55)
[2016-08-23] MEDS: ACLIDINIUM BROMIDE 400 MCG/INH AERO.POWD IH SCH ×2 (10:56→21:41)
--- NOTE | 2016-08-23 12:12 | PN ---
Progress Note, Physician Chief Complaint: OOb to chair feels better, advanced diet - Current Medication List Current Medications: Active Medications Acetaminophen (Tylenol -) 650 mg PO Q6H PRN PRN Reason: FEVER OR PAIN Aclidinium [place] (Tudorza -) 1 puff IH BID [facility] Last Admin: 08/23/16 10:56 Dose: 1 puff Albuterol Sulfate (Ventolin Hfa Inhaler -) 1 puff IH Q4H PRN PRN Reason: SHORT OF BREATH/WHEEZING Apixaban (Eliquis -) 5 mg PO BID [facility] Last Admin: 08/23/16 10:55 Dose: 5 mg Atorvastatin Calcium (Lipitor -) 20 mg PO HS [facility] Last Admin: 08/22/16 22:31 Dose: 20 mg Bacitracin (Bacitracin -) 1 applic TP DAILY [facility] Last Admin: 08/22/16 11:46 Dose: 1 applic Cholecalciferol (Vitamin D3 -) 4,000 unit PO DAILY [facility] Last Admin: 08/23/16 10:54 Dose: 4,000 unit Docusate Sodium (Colace -) 100 mg PO BID [facility] Last Admin: 08/23/16 10:55 Dose: 100 mg Glipizide (Glucotrol -) 2.5 mg PO DAILY@0700 [facility] Last Admin: 08/23/16 06:40 Dose: 2.5 mg Isosorbide Mononitrate (Imdur -) 60 mg PO DAILY [facility] Last Admin: 08/23/16 10:55 Dose: 60 mg Levothyroxine Sodium (Synthroid -) 50 mcg PO DAILY@0700 [facility] Last Admin: 08/23/16 06:41 Dose: 50 mcg Losartan Potassium (Cozaar -) 50 mg PO DAILY [facility] Last Admin: 08/23/16 10:55 Dose: 50 mg Magnesium Chloride (Slow-Mag -) 64 mg PO DAILY [facility] Last Admin: 08/23/16 10:55 Dose: 64 mg Metoprolol Succinate (Toprol Xl -) 100 mg PO DAILY [facility] Last Admin: 08/23/16 10:55 Dose: 100 mg Ondansetron HCl (Zofran Injection) 4 mg IVPB Q6H PRN PRN Reason: NAUSEA Pantoprazole Sodium (Protonix 40mg Ivpb (Pre-Docked)) 40 mg IVPB DAILY [facility] Last Admin: 08/23/16 10:53 Dose: 40 mg Polyethylene Glycol (Miralax (For Daily Use) -) 17 gm PO DAILY PRN PRN Reason: CONSTIPATION Ranitidine HCl (Zantac -) 150 mg PO HS PRN PRN Reason: stomach pain Ranolazine (Ranexa -) 500 mg PO BID [facility] Last Admin: 08/23/16 10:55 Dose: 500 mg Witch Lyla/Glycerin (Tucks Pads -) 0 pad TP PRN PRN PRN Reason: HEMORRHOIDS - Objective Vital Signs: Vital Signs Temperature 98.7 F 08/23/16 06:00 Pulse Rate 64 08/23/16 06:00 Respiratory Rate 18 08/23/16 06:00 Blood Pressure 150/75 08/23/16 06:00 O2 Sat by Pulse Oximetry (%) 91 L 08/22/16 21:00 Constitutional: Yes: No Distress, Calm Eyes: Yes: Conjunctiva Clear HENT: Yes: Atraumatic Neck: Yes: Supple Cardiovascular: Yes: Regular Rate and Rhythm Respiratory: Yes: CTA Bilaterally Gastrointestinal: Yes: Soft. No: Distention, Tenderness Genitourinary: No: CVA Tenderness - Left, CVA Tenderness - Right Musculoskeletal: No: Joint Stiffness, Joint Swelling Extremities: No: Cold, Cool Edema: No Peripheral Pulses WNL: Yes Integumentary: No: Rash, Venous Stasis Changes Neurological: Yes: WNL, Alert, Oriented ...Motor Strength: WNL Psychiatric: Yes: WNL, Alert, Oriented. No: Agitated, Suicidal Ideation Labs: CBC, BMP 08/22/16 06:00 08/22/16 06:00 - ....Imaging Other: Report Reviewed Assessment/Plan 81-year-old female who lives in assisted living, with an aide, who has a past medical history of diabetes, hypothyroidism, GERD, vertigo, CAD with 6 stents, COPD, GERD, prior PE. Intractable N/V and diarrhea; improved further w/u per GI advance diet as tolerated psychitary eval for confusion and capacity D/w Keya Cartwright at bedside falls decubs DVT PFX d/w pt and staff
[2016-08-23] MEDS: BACITRACIN 30 GM TUBE TOPICAL OINTMENT TP SCH (18:20)
[2016-08-23] MEDS ORDERED: PT OWN MED DRAWER 7, Y5N ONE (20:47)
[2016-08-23] MEDS: ATORVASTATIN CA 20 MG TABLET (FP) PO SCH (21:41)
[2016-08-24] MEDS: glipiZIDE 5 MG TABLET (FP) PO SCH (06:46)
[2016-08-24] MEDS: LEVOTHYROXINE NA 50 MCG TABLET (FP) PO SCH (06:47)
[2016-08-24] MEDS: ACLIDINIUM BROMIDE 400 MCG/INH AERO.POWD IH SCH ×2 (09:54→21:31)
[2016-08-24] MEDS ORDERED: PT OWN MED DRAWER 7, Y5N ONE ×2 (09:59→20:32)
[2016-08-24] MEDS: DOCUSATE SODIUM 100 MG CAPSULE (FP) PO SCH ×2 (10:03→21:31)
[2016-08-24] MEDS: BACITRACIN 30 GM TUBE TOPICAL OINTMENT TP SCH (10:03)
[2016-08-24] MEDS: METOPROLOL SUCCINATE 100 MG TAB.SR.24H (FP) PO SCH (10:03)
[2016-08-24] MEDS: APIXABAN 5 MG TABLET PO SCH ×2 (10:04→21:30)
[2016-08-24] MEDS: MAGNESIUM CL 64 MG TABLET.SA PO SCH (10:04)
[2016-08-24] MEDS: ISOSORBIDE MONONITRATE 60 MG TAB.SR.24H (FP) PO SCH (10:04)
[2016-08-24] MEDS: RANOLAZINE E.R. 500 MG TABLET (FP) PO SCH ×2 (10:04→21:30)
[2016-08-24] MEDS: LOSARTAN POTASSIUM 50 MG TABLET (FP) PO SCH (10:04)
[2016-08-24] MEDS: PANTOPRAZOLE SODIUM 40 MG/100 ML PRE-DOCKED IVPB SCH (10:04)
[2016-08-24] MEDS: CHOLECALCIFEROL (VITAMIN D3) 1,000 UNIT TABLET (FP) PO SCH (10:04)
--- NOTE | 2016-08-24 12:15 | PN ---
Progress Note, Physician Chief Complaint: OOB feels well had BM no c/o - Current Medication List Current Medications: Active Medications Acetaminophen (Tylenol -) 650 mg PO Q6H PRN PRN Reason: FEVER OR PAIN Aclidinium [place] (Tudorza -) 1 puff IH BID [facility] Last Admin: 08/24/16 09:54 Dose: 1 puff Albuterol Sulfate (Ventolin Hfa Inhaler -) 1 puff IH Q4H PRN PRN Reason: SHORT OF BREATH/WHEEZING Apixaban (Eliquis -) 5 mg PO BID [facility] Last Admin: 08/24/16 10:04 Dose: 5 mg Atorvastatin Calcium (Lipitor -) 20 mg PO HS [facility] Last Admin: 08/23/16 21:41 Dose: 20 mg Bacitracin (Bacitracin -) 1 applic TP DAILY [facility] Last Admin: 08/24/16 10:03 Dose: 1 applic Cholecalciferol (Vitamin D3 -) 4,000 unit PO DAILY [facility] Last Admin: 08/24/16 10:04 Dose: 4,000 unit Docusate Sodium (Colace -) 100 mg PO BID [facility] Last Admin: 08/24/16 10:03 Dose: 100 mg Glipizide (Glucotrol -) 2.5 mg PO DAILY@0700 [facility] Last Admin: 08/24/16 06:46 Dose: 2.5 mg Isosorbide Mononitrate (Imdur -) 60 mg PO DAILY [facility] Last Admin: 08/24/16 10:04 Dose: 60 mg Levothyroxine Sodium (Synthroid -) 50 mcg PO DAILY@0700 [facility] Last Admin: 08/24/16 06:47 Dose: 50 mcg Losartan Potassium (Cozaar -) 50 mg PO DAILY [facility] Last Admin: 08/24/16 10:04 Dose: 50 mg Magnesium Chloride (Slow-Mag -) 64 mg PO DAILY [facility] Last Admin: 08/24/16 10:04 Dose: 64 mg Metoprolol Succinate (Toprol Xl -) 100 mg PO DAILY [facility] Last Admin: 08/24/16 10:03 Dose: 100 mg Ondansetron HCl (Zofran Injection) 4 mg IVPB Q6H PRN PRN Reason: NAUSEA Pantoprazole Sodium (Protonix 40mg Ivpb (Pre-Docked)) 40 mg IVPB DAILY [facility] Last Admin: 08/24/16 10:04 Dose: 40 mg Polyethylene Glycol (Miralax (For Daily Use) -) 17 gm PO DAILY PRN PRN Reason: CONSTIPATION Ranitidine HCl (Zantac -) 150 mg PO HS PRN PRN Reason: stomach pain Ranolazine (Ranexa -) 500 mg PO BID [facility] Last Admin: 08/24/16 10:04 Dose: 500 mg Witch Lyla/Glycerin (Tucks Pads -) 0 pad TP PRN PRN PRN Reason: HEMORRHOIDS Last Admin: 08/24/16 10:04 Dose: 1 applic - Objective Vital Signs: Vital Signs Temperature 98.7 F 08/24/16 09:52 Pulse Rate 61 08/24/16 09:52 Respiratory Rate 20 08/24/16 09:52 Blood Pressure 154/77 08/24/16 09:52 O2 Sat by Pulse Oximetry (%) 96 08/24/16 09:00 Constitutional: Yes: No Distress, Calm Eyes: Yes: Conjunctiva Clear HENT: Yes: Atraumatic Neck: Yes: Supple Cardiovascular: Yes: Regular Rate and Rhythm Respiratory: Yes: CTA Bilaterally Gastrointestinal: Yes: Soft. No: Distention, Tenderness Genitourinary: No: CVA Tenderness - Left, CVA Tenderness - Right Musculoskeletal: No: Joint Stiffness, Joint Swelling Extremities: No: Cold, Cool Edema: No Peripheral Pulses WNL: Yes Integumentary: No: Rash, Venous Stasis Changes Neurological: Yes: WNL, Alert, Oriented ...Motor Strength: WNL Psychiatric: Yes: WNL, Alert, Oriented. No: Agitated, Suicidal Ideation Labs: CBC, BMP 08/22/16 06:00 08/22/16 06:00 - ....Imaging Other: Report Reviewed Assessment/Plan 81-year-old female who lives in assisted living, with an aide, who has a past medical history of diabetes, hypothyroidism, GERD, vertigo, CAD with 6 stents, COPD, GERD, prior PE. Intractable N/V and diarrhea; improved further w/u per GI advance diet as tolerated per psychitary able to make decisions falls decubs DVT PFX major case detective gene in am for disposition d/w pt and staff
[2016-08-24] MEDS: ATORVASTATIN CA 20 MG TABLET (FP) PO SCH (21:30)
[2016-08-25] MEDS: glipiZIDE 5 MG TABLET (FP) PO SCH (06:40)
[2016-08-25] MEDS: LEVOTHYROXINE NA 50 MCG TABLET (FP) PO SCH (06:42)
[2016-08-25] MEDS: METOPROLOL SUCCINATE 100 MG TAB.SR.24H (FP) PO SCH (10:30)
[2016-08-25] MEDS: ISOSORBIDE MONONITRATE 60 MG TAB.SR.24H (FP) PO SCH (10:31)
[2016-08-25] MEDS: DOCUSATE SODIUM 100 MG CAPSULE (FP) PO SCH ×2 (10:31→21:59)
[2016-08-25] MEDS: LOSARTAN POTASSIUM 50 MG TABLET (FP) PO SCH (10:31)
[2016-08-25] MEDS: CHOLECALCIFEROL (VITAMIN D3) 1,000 UNIT TABLET (FP) PO SCH (10:31)
[2016-08-25] MEDS: RANOLAZINE E.R. 500 MG TABLET (FP) PO SCH ×2 (10:31→21:59)
[2016-08-25] MEDS: ACLIDINIUM BROMIDE 400 MCG/INH AERO.POWD IH SCH ×2 (10:31→21:58)
[2016-08-25] MEDS: MAGNESIUM CL 64 MG TABLET.SA PO SCH (10:32)
[2016-08-25] MEDS: APIXABAN 5 MG TABLET PO SCH ×3 (11:10→21:59)
[2016-08-25] MEDS: PANTOPRAZOLE SODIUM 40 MG/100 ML PRE-DOCKED IVPB SCH (11:11)
--- NOTE | 2016-08-25 11:19 | PN ---
Progress Note, Physician Chief Complaint: in bed had hot cereals this morning and feels nauseous, no vomiting but feels like it; said felt same after lunch yesterday. - Current Medication List Current Medications: Active Medications Acetaminophen (Tylenol -) 650 mg PO Q6H PRN PRN Reason: FEVER OR PAIN Aclidinium [employer] (Tudorza -) 1 puff IH BID [facility] Last Admin: 08/25/16 10:31 Dose: Not Given Albuterol Sulfate (Ventolin Hfa Inhaler -) 1 puff IH Q4H PRN PRN Reason: SHORT OF BREATH/WHEEZING Apixaban (Eliquis -) 5 mg PO BID [facility] Last Admin: 08/25/16 11:10 Dose: Not Given Atorvastatin Calcium (Lipitor -) 20 mg PO HS [facility] Last Admin: 08/24/16 21:30 Dose: 20 mg Bacitracin (Bacitracin -) 1 applic TP DAILY [facility] Last Admin: 08/24/16 10:03 Dose: 1 applic Cholecalciferol (Vitamin D3 -) 4,000 unit PO DAILY [facility] Last Admin: 08/25/16 10:31 Dose: 4,000 unit Docusate Sodium (Colace -) 100 mg PO BID [facility] Last Admin: 08/25/16 10:31 Dose: 100 mg Glipizide (Glucotrol -) 2.5 mg PO DAILY@0700 [facility] Last Admin: 08/25/16 06:40 Dose: 2.5 mg Isosorbide Mononitrate (Imdur -) 60 mg PO DAILY [facility] Last Admin: 08/25/16 10:31 Dose: 60 mg Levothyroxine Sodium (Synthroid -) 50 mcg PO DAILY@0700 [facility] Last Admin: 08/25/16 06:42 Dose: 50 mcg Losartan Potassium (Cozaar -) 50 mg PO DAILY [facility] Last Admin: 08/25/16 10:31 Dose: 50 mg Magnesium Chloride (Slow-Mag -) 64 mg PO DAILY [facility] Last Admin: 08/25/16 10:32 Dose: 64 mg Metoclopramide HCl (Reglan -) [address] [facility] Metoprolol Succinate (Toprol Xl -) 100 mg PO DAILY [facility] Last Admin: 08/25/16 10:30 Dose: 100 mg Pantoprazole Sodium (Protonix -) 20 mg PO DAILY [facility] Polyethylene Glycol (Miralax (For Daily Use) -) 17 gm PO DAILY PRN PRN Reason: CONSTIPATION Ranitidine HCl (Zantac -) 150 mg PO HS PRN PRN Reason: stomach pain Ranolazine (Ranexa -) 500 mg PO BID [facility] Last Admin: 08/25/16 10:31 Dose: 500 mg Witch Lyla/Glycerin (Tucks Pads -) 0 pad TP PRN PRN PRN Reason: HEMORRHOIDS Last Admin: 08/24/16 10:04 Dose: 1 applic - Objective Vital Signs: Vital Signs Temperature 98.4 F 08/25/16 10:00 Pulse Rate 68 08/25/16 10:00 Respiratory Rate 20 08/25/16 10:00 Blood Pressure 154/82 08/25/16 10:00 O2 Sat by Pulse Oximetry (%) 94 L 08/24/16 21:00 Constitutional: Yes: No Distress, Calm Eyes: Yes: Conjunctiva Clear HENT: Yes: Atraumatic Neck: Yes: Supple Cardiovascular: Yes: Regular Rate and Rhythm Respiratory: Yes: CTA Bilaterally Gastrointestinal: Yes: Soft. No: Distention, Tenderness Genitourinary: No: CVA Tenderness - Left, CVA Tenderness - Right Musculoskeletal: No: Joint Stiffness, Joint Swelling Extremities: No: Cold, Cool Edema: No Peripheral Pulses WNL: Yes Integumentary: No: Rash, Venous Stasis Changes Neurological: Yes: WNL, Alert, Oriented ...Motor Strength: WNL Psychiatric: Yes: WNL, Alert, Oriented. No: Agitated, Suicidal Ideation Labs: CBC, BMP 08/22/16 06:00 08/22/16 06:00 - ....Imaging Other: Report Reviewed Assessment/Plan 81-year-old female who lives in assisted living, with an aide, who has a past medical history of diabetes, hypothyroidism, GERD, vertigo, CAD with 6 stents, COPD, GERD, prior PE. 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
[2016-08-25] MEDS: BACITRACIN 30 GM TUBE TOPICAL OINTMENT TP SCH (11:24)
[2016-08-25] MEDS ORDERED: PANTOPRAZOLE 20 MG TABLET (FP) PO SCH (11:30)
[2016-08-25] MEDS ORDERED: PANTOPRAZOLE 20 MG TABLET (FP) PO ONE (13:00)
[2016-08-25] MEDS ORDERED: METOCLOPRAMIDE HCL 10 MG TABLET (FP) PO SCH (16:30)
--- NOTE | 2016-08-25 17:55 | PN ---
GI Progress Note Subjective: Vague complaints, complains of nausea that seems to be worsened by "an asthma medicine". no vomiting reported - Objective Vital Signs: Vital Signs Temperature 97.9 F 08/25/16 14:13 Pulse Rate 65 08/25/16 14:13 Respiratory Rate 18 08/25/16 14:13 Blood Pressure 103/53 08/25/16 14:13 O2 Sat by Pulse Oximetry (%) 92 L 08/25/16 09:00 Eyes: No: Sclera Icterus Cardiovascular: Yes: Regular Rate and Rhythm Respiratory: Yes: CTA Bilaterally Gastrointestinal Inspection: No: Distention ...Auscultate: Yes: Normoactive Bowel Sounds ...Palpate: No: Tenderness Neurological: Yes: Alert Labs: CBC, BMP 08/22/16 06:00 08/22/16 06:00 Problem List - Problems (1) Nausea & vomiting Assessment/Plan: No vomiting however with persistent complaints of nausea Medication elimination as feasible Would minimize reglan use and would not keep as standing medication upon discharge EGD for Thursday with Eugene hazel. Discussed potential risks of the procedure with Ms. murray like but not limited to bleeding, perforation requiring surgery to repair, infection and sedation medication effects all of which could be potentially life threatening. She has agreed to the procedure. Code(s): R11.2 - NAUSEA WITH VOMITING, UNSPECIFIED Qualifiers: Vomiting type: unspecified Vomiting Intractability: non-intractable Qualified Code(s): R11.2 - Nausea with vomiting, unspecified
[2016-08-25] MEDS: ATORVASTATIN CA 20 MG TABLET (FP) PO SCH (21:59)
[2016-08-26] MEDS: LEVOTHYROXINE NA 50 MCG TABLET (FP) PO SCH (06:36)
[2016-08-26] MEDS: glipiZIDE 5 MG TABLET (FP) PO SCH (06:37)
[2016-08-26 08:36] LABS: BASOPHIL 0.7 % (0-2.0); EOSINOPHIL 4.9 % (0-4.5); MCH 31.2 pg (25.7-33.7); MCHC 32.7 g/dl (32.0-36.0); MEAN CELL VOLUME 95.3 fl (80-96); MEAN PLT VOLUME 10.1 fl (7.5-11.1); NEUTROPHILS 43.2 % (42.8-82.8); PLATELET COUNT 168 K/MM3 (134-434); RDW 14.4 % (11.6-15.6); WHITE BLOOD COUNT 5.9 K/mm3 (4.0-10.0)
[2016-08-26 08:42] LABS: ALBUMIN 3.1 g/dl (3.4-5.0); CALCIUM 8.8 mg/dL (8.5-10.1)
[2016-08-26 08:45] LABS: BILIRUBIN,TOTAL 0.5 mg/dL (0.2-1.0); TOT PROT 6.6 g/dl (6.4-8.2)
[2016-08-26] MEDS ORDERED: PANTOPRAZOLE 40 MG TABLET (FP) PO SCH (10:00)
[2016-08-26] MEDS ORDERED: PT OWN MED DRAWER 7, Y5N ONE (10:05)
[2016-08-26] MEDS: CHOLECALCIFEROL (VITAMIN D3) 1,000 UNIT TABLET (FP) PO SCH (10:06)
[2016-08-26] MEDS: DOCUSATE SODIUM 100 MG CAPSULE (FP) PO SCH ×2 (10:06→21:13)
[2016-08-26] MEDS: MAGNESIUM CL 64 MG TABLET.SA PO SCH (10:07)
[2016-08-26] MEDS: RANOLAZINE E.R. 500 MG TABLET (FP) PO SCH ×2 (10:07→21:15)
[2016-08-26] MEDS: ACLIDINIUM BROMIDE 400 MCG/INH AERO.POWD IH SCH ×2 (10:07→21:15)
[2016-08-26] MEDS: METOPROLOL SUCCINATE 100 MG TAB.SR.24H (FP) PO SCH (10:07)
[2016-08-26] MEDS: LOSARTAN POTASSIUM 50 MG TABLET (FP) PO SCH (10:07)
[2016-08-26] MEDS: ISOSORBIDE MONONITRATE 60 MG TAB.SR.24H (FP) PO SCH (10:07)
[2016-08-26] MEDS: BACITRACIN 30 GM TUBE TOPICAL OINTMENT TP SCH (10:52)
--- NOTE | 2016-08-26 12:23 | PN ---
Progress Note, Physician Chief Complaint: in bed feels well on soft fluid diet but problems with solid diet for EGD in am; eliquis held since yesterday am (not given yesterday and today d/ w nurse and pt) - Current Medication List Current Medications: Active Medications Acetaminophen (Tylenol -) 650 mg PO Q6H PRN PRN Reason: FEVER OR PAIN Aclidinium [place] (Tudorza -) 1 puff IH BID [facility] Last Admin: 08/26/16 10:07 Dose: Not Given Albuterol Sulfate (Ventolin Hfa Inhaler -) 1 puff IH Q4H PRN PRN Reason: SHORT OF BREATH/WHEEZING Apixaban (Eliquis -) 5 mg PO BID [facility] Last Admin: 08/25/16 11:10 Dose: Not Given Atorvastatin Calcium (Lipitor -) 20 mg PO HS [facility] Last Admin: 08/25/16 21:59 Dose: 20 mg Bacitracin (Bacitracin -) 1 applic TP DAILY [facility] Last Admin: 08/26/16 10:52 Dose: 1 applic Cholecalciferol (Vitamin D3 -) 4,000 unit PO DAILY [facility] Last Admin: 08/26/16 10:06 Dose: 4,000 unit Docusate Sodium (Colace -) 100 mg PO BID [facility] Last Admin: 08/26/16 10:06 Dose: 100 mg Glipizide (Glucotrol -) 2.5 mg PO DAILY@0700 [facility] Last Admin: 08/26/16 06:37 Dose: 2.5 mg Isosorbide Mononitrate (Imdur -) 60 mg PO DAILY [facility] Last Admin: 08/26/16 10:07 Dose: 60 mg Levothyroxine Sodium (Synthroid -) 50 mcg PO DAILY@0700 [facility] Last Admin: 08/26/16 06:36 Dose: 50 mcg Losartan Potassium (Cozaar -) 50 mg PO DAILY [facility] Last Admin: 08/26/16 10:07 Dose: 50 mg Magnesium Chloride (Slow-Mag -) 64 mg PO DAILY [facility] Last Admin: 08/26/16 10:07 Dose: 64 mg Metoprolol Succinate (Toprol Xl -) 100 mg PO DAILY [facility] Last Admin: 08/26/16 10:07 Dose: 100 mg Pantoprazole Sodium (Protonix -) 40 mg PO DAILY [facility] Last Admin: 03/14/17 10:07 Dose: 40 mg Polyethylene Glycol (Miralax (For Daily Use) -) 17 gm PO DAILY PRN PRN Reason: CONSTIPATION Ranitidine HCl (Zantac -) 150 mg PO HS PRN PRN Reason: stomach pain Ranolazine (Ranexa -) 500 mg PO BID [facility] Last Admin: 08/26/16 10:07 Dose: 500 mg Witch Lyla/Glycerin (Tucks Pads -) 0 pad TP PRN PRN PRN Reason: HEMORRHOIDS Last Admin: 08/24/16 10:04 Dose: 1 applic - Objective Vital Signs: Vital Signs Temperature 98.1 F 08/26/16 09:24 Pulse Rate 64 08/26/16 09:24 Respiratory Rate 18 08/26/16 09:24 Blood Pressure 135/68 08/26/16 09:24 O2 Sat by Pulse Oximetry (%) 92 L 08/26/16 09:00 Constitutional: Yes: No Distress, Calm Eyes: Yes: Conjunctiva Clear HENT: Yes: Atraumatic Neck: Yes: Supple Cardiovascular: No: Regular Rate and Rhythm Respiratory: Yes: CTA Bilaterally Gastrointestinal: Yes: Soft. No: Distention, Tenderness Genitourinary: No: CVA Tenderness - Left, CVA Tenderness - Right Musculoskeletal: No: Joint Stiffness, Joint Swelling Extremities: No: Cold, Cool Edema: No Peripheral Pulses WNL: Yes Integumentary: No: Rash, Venous Stasis Changes Neurological: Yes: WNL, Alert, Oriented ...Motor Strength: WNL Psychiatric: Yes: WNL, Alert, Oriented. No: Agitated, Suicidal Ideation Labs: CBC, BMP 08/26/16 07:40 08/26/16 07:40 - ....Imaging Other: Report Reviewed Assessment/Plan 81-year-old female who lives in assisted living, with an aide, who has a past medical history of diabetes, hypothyroidism, GERD, vertigo, CAD with 6 stents, COPD, GERD, prior PE. persistent nausea with full liquids EGD for 3 d/w pt she agrred with the procedure hold eliquisfor 48 hours before the procedure per psychitary pt is able to make decisions falls decubs DVT PFX d/w pt and staff
[2016-08-26] MEDS: ATORVASTATIN CA 20 MG TABLET (FP) PO SCH (21:15)
[2016-08-27] MEDS: ACLIDINIUM BROMIDE 400 MCG/INH AERO.POWD IH SCH ×3 (05:24→22:06)
[2016-08-27] MEDS: glipiZIDE 5 MG TABLET (FP) PO SCH (06:02)
[2016-08-27] MEDS: LEVOTHYROXINE NA 50 MCG TABLET (FP) PO SCH (06:36)
[2016-08-27] MEDS ORDERED: PROPOFOL 60 ML ONE (08:28)
[2016-08-27] MEDS ORDERED: LIDOCAINE HCL/PF 2% SDV 5ML VIAL ONE (08:28)
[2016-08-27] MEDS ORDERED: METOCLOPRAMIDE HCL INJECTION 10 MG/2 ML VIAL IVPB PRN (09:00)
--- NOTE | 2016-08-27 09:02 | PN ---
Progress Note (short form) - Note Progress Note: GI Procedure NOte> Please see scanned EGD report. Antral ulcerations noted as well as mild reflux across a sliding hiatal hernia. 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 Will order small bowel series and resume reglan.
[2016-08-27] MEDS: DOCUSATE SODIUM 100 MG CAPSULE (FP) PO SCH ×3 (12:19→22:05)
[2016-08-27] MEDS: MAGNESIUM CL 64 MG TABLET.SA PO SCH (12:20)
[2016-08-27] MEDS: ISOSORBIDE MONONITRATE 60 MG TAB.SR.24H (FP) PO SCH ×2 (12:20→13:52)
[2016-08-27] MEDS: METOPROLOL SUCCINATE 100 MG TAB.SR.24H (FP) PO SCH ×2 (12:20→13:52)
[2016-08-27] MEDS: LOSARTAN POTASSIUM 50 MG TABLET (FP) PO SCH ×2 (12:20→13:52)
[2016-08-27] MEDS: RANOLAZINE E.R. 500 MG TABLET (FP) PO SCH ×3 (12:20→22:06)
[2016-08-27] MEDS: PANTOPRAZOLE 40 MG TABLET (FP) PO SCH ×3 (12:20→22:06)
[2016-08-27] MEDS: CHOLECALCIFEROL (VITAMIN D3) 1,000 UNIT TABLET (FP) PO SCH ×2 (12:21→13:52)
[2016-08-27] MEDS ORDERED: PT OWN MED DRAWER 7, Y5N ONE (12:22)
[2016-08-27] MEDS: BACITRACIN 30 GM TUBE TOPICAL OINTMENT TP SCH (12:24)
--- NOTE | 2016-08-27 13:23 | PN ---
Progress Note, Physician Chief Complaint: in bed s/p EGD d/w GI who ordered GI series but pt refused for now - Current Medication List Current Medications: Active Medications Acetaminophen (Tylenol -) 650 mg PO Q6H PRN PRN Reason: FEVER OR PAIN Aclidinium [place] (Tudorza -) 1 puff IH BID [facility] Last Admin: 08/27/16 12:23 Dose: Not Given Albuterol Sulfate (Ventolin Hfa Inhaler -) 1 puff IH Q4H PRN PRN Reason: SHORT OF BREATH/WHEEZING Apixaban (Eliquis -) 5 mg PO BID [facility] Last Admin: 08/25/16 11:10 Dose: Not Given Atorvastatin Calcium (Lipitor -) 20 mg PO HS [facility] Last Admin: 08/26/16 21:15 Dose: 20 mg Bacitracin (Bacitracin -) 1 applic TP DAILY [facility] Last Admin: 08/27/16 12:24 Dose: 1 applic Cholecalciferol (Vitamin D3 -) 4,000 unit PO DAILY [facility] Last Admin: 08/27/16 12:21 Dose: Not Given Docusate Sodium (Colace -) 100 mg PO BID [facility] Last Admin: 08/27/16 12:19 Dose: Not Given Glipizide (Glucotrol -) 2.5 mg PO DAILY@0700 [facility] Last Admin: 08/27/16 06:02 Dose: Not Given Isosorbide Mononitrate (Imdur -) 60 mg PO DAILY [facility] Last Admin: 08/27/16 12:20 Dose: Not Given Levothyroxine Sodium (Synthroid -) 50 mcg PO DAILY@0700 [facility] Last Admin: 08/27/16 06:36 Dose: 50 mcg Losartan Potassium (Cozaar -) 50 mg PO DAILY [facility] Last Admin: 08/27/16 12:20 Dose: Not Given Magnesium Chloride (Slow-Mag -) 64 mg PO DAILY [facility] Last Admin: 08/27/16 12:20 Dose: Not Given Metoclopramide HCl (Reglan Injection -) 10 mg IVPB Q6H PRN PRN Reason: NAUSEA AND/OR VOMITING Metoprolol Succinate (Toprol Xl -) 100 mg PO DAILY [facility] Last Admin: 08/27/16 12:20 Dose: Not Given Pantoprazole Sodium (Protonix -) 40 mg PO BID [facility] Last Admin: 08/27/16 12:20 Dose: Not Given Polyethylene Glycol (Miralax (For Daily Use) -) 17 gm PO DAILY PRN PRN Reason: CONSTIPATION Ranolazine (Ranexa -) 500 mg PO BID [facility] Last Admin: 08/27/16 12:20 Dose: Not Given Witch Lyla/Glycerin (Tucks Pads -) 0 pad TP PRN PRN PRN Reason: HEMORRHOIDS Last Admin: 08/24/16 10:04 Dose: 1 applic - Objective Vital Signs: Vital Signs Temperature 97.5 F L 08/27/16 08:47 Pulse Rate 66 08/27/16 09:17 Respiratory Rate 14 08/27/16 09:17 Blood Pressure 156/68 08/27/16 09:17 O2 Sat by Pulse Oximetry (%) 96 08/27/16 09:17 Constitutional: Yes: No Distress, Calm Eyes: Yes: Conjunctiva Clear HENT: Yes: Atraumatic Neck: Yes: Supple Cardiovascular: Yes: Regular Rate and Rhythm Respiratory: Yes: CTA Bilaterally Gastrointestinal: Yes: Soft. No: Distention, Tenderness Genitourinary: No: Hematuria Musculoskeletal: No: Joint Stiffness, Joint Swelling Extremities: No: Cold, Cool Edema: No Peripheral Pulses WNL: Yes Integumentary: No: Rash, Venous Stasis Changes Neurological: Yes: WNL, Alert, Oriented ...Motor Strength: WNL Psychiatric: Yes: WNL, Alert, Oriented. No: Agitated, Suicidal Ideation Labs: CBC, BMP 08/26/16 07:40 08/26/16 07:40 - ....Imaging Other: Report Reviewed Assessment/Plan 81-year-old female who lives in assisted living, with an aide, who has a past medical history of diabetes, hypothyroidism, GERD, vertigo, CAD with 6 stents, COPD, GERD, prior PE. persistent nausea with full liquids s/p EGD, GI series per GI restart eliquis when OK with GI hold eliquisfor 48 hours before the procedure per psychitary pt is able to make decisions falls decubs DVT PFX d/w pt and staff
[2016-08-27] MEDS: ATORVASTATIN CA 20 MG TABLET (FP) PO SCH (22:05)
[2016-08-28] MEDS: glipiZIDE 5 MG TABLET (FP) PO SCH (06:43)
[2016-08-28] MEDS: LEVOTHYROXINE NA 50 MCG TABLET (FP) PO SCH (06:43)
[2016-08-28] MEDS: CHOLECALCIFEROL (VITAMIN D3) 1,000 UNIT TABLET (FP) PO SCH (09:36)
[2016-08-28] MEDS: RANOLAZINE E.R. 500 MG TABLET (FP) PO SCH (09:37)
[2016-08-28] MEDS: DOCUSATE SODIUM 100 MG CAPSULE (FP) PO SCH (09:37)
[2016-08-28] MEDS: METOPROLOL SUCCINATE 100 MG TAB.SR.24H (FP) PO SCH (09:37)
[2016-08-28] MEDS: PANTOPRAZOLE 40 MG TABLET (FP) PO SCH (09:37)
[2016-08-28] MEDS: BACITRACIN 30 GM TUBE TOPICAL OINTMENT TP SCH (09:38)
[2016-08-28] MEDS: ISOSORBIDE MONONITRATE 60 MG TAB.SR.24H (FP) PO SCH (09:38)
[2016-08-28] MEDS: LOSARTAN POTASSIUM 50 MG TABLET (FP) PO SCH (09:38)
[2016-08-28] MEDS: MAGNESIUM CL 64 MG TABLET.SA PO SCH (09:38)
[2016-08-28] MEDS: ACLIDINIUM BROMIDE 400 MCG/INH AERO.POWD IH SCH (09:39)
--- NOTE | 2016-08-28 09:58 | DS ---
Physical Examination Vital Signs: Vital Signs Temperature 98.7 F 08/28/16 06:00 Pulse Rate 64 08/28/16 06:00 Respiratory Rate 18 08/28/16 06:00 Blood Pressure 142/67 08/28/16 06:00 O2 Sat by Pulse Oximetry (%) 94 L 08/27/16 21:00 Findings/Remarks: pt scheduled today for SB series but she refused them, d/w pt indications and risks and consequneces she is aware but does not wnat to do them, as she also refused them yesterday; said she ate regular food well, feels well, no GI c/o; will be DC to SNF [facility] has a bed d/w CM; f/u with GI prn Constitutional: Yes: No Distress, Calm Eyes: Yes: Conjunctiva Clear HENT: Yes: Atraumatic Neck: Yes: Supple Cardiovascular: Yes: Regular Rate and Rhythm Respiratory: Yes: CTA Bilaterally Gastrointestinal: Yes: Soft. No: Distention, Tenderness Renal/: No: Hematuria Musculoskeletal: No: Joint Stiffness, Joint Swelling Extremities: No: Calf Tenderness, Cold, Cool, Cyanosis Edema: No Peripheral Pulses WNL: Yes Integumentary: No: Rash, Venous Stasis Changes Neurological: Yes: WNL, Alert, Oriented ...Motor Strength: WNL Psychiatric: Yes: WNL, Alert, Oriented. No: Agitated, Suicidal Ideation Labs: CBC, BMP 08/26/16 07:40 08/26/16 07:40 Discharge Summary Reason For Visit: EPIGASTRIC PAIN/NAUSEA AND VOMITING Current Active Problems Diastolic dysfunction without heart failure (Acute) Epigastric abdominal pain (Acute) Nausea & vomiting (Acute) Vertigo (Acute) Procedures: Principal: intractable N/V Other Procedures: GI eval, EGD per GI Hospital Course: Reglan po; pt refused SB series; DC to SNF for PT rehab; f/u as advised. Condition: Improved - Instructions Diet, Activity, Other Instructions: f/u PCP and GI and cardiology in 2-4 weeks after DC home outpt SB series if pt agrees to have them; meds as ordered falls PFX RTER if worse or recurrent c/o Referrals: Miguel Wang MD [Primary Care Provider] - Casimiro Salguero MD [Staff Physician] - Daniel Farris MD [Staff Physician] - Disposition: LONGTERM FACILITY - Home Medications Comprehensive Discharge Medication List: Ambulatory Orders Acetaminophen [Tylenol .Regular Strength -] 650 mg PO Q6H PRN #120 tablet Apixaban [Eliquis -] 5 mg PO BID #180 tablet 04/27/16 Isosorbide Mononitrate [Imdur -] 60 mg PO DAILY #90 tab.sr.24h 04/27/16 Levothyroxine [Synthroid -] 50 mcg PO DAILY@0700 #90 tablet 04/27/16 Losartan Potassium 25 mg PO DAILY #90 tablet 04/27/16 Magnesium Chloride [Slow-Mag -] 64 mg PO DAILY #90 tablet.sa 04/27/16 Meclizine HCl [Antivert -] 12.5 mg PO Q8H PRN #90 tablet 04/27/16 Metoprolol Succinate [Toprol XL -] 100 mg PO DAILY #90 tab.sr.24h 04/27/16 Polyethylene Glycol 3350 [Miralax 119 gm Btl -] 17 gm PO DAILY PRN #90 bottle Ranitidine HCl [Zantac] 150 mg PO HS PRN #90 tablet 04/27/16 Ranolazine [Ranexa] 500 mg PO BID #180 tab.er.12h 04/27/16 Simvastatin 40 mg PO HS #90 tablet 04/27/16 Cholecalciferol (Vitamin D3) [Vitamin D3 -] 4,000 unit PO DAILY 05/31/16 Docusate Sodium [Colace -] 100 mg PO BID 05/31/16 Tiotropium [place] [Spiriva] 1 inh PO DAILY 05/31/16 Lactulose (Oral Use) [Cephulac -] 20 gm PO DAILY [facility] 06/03/16 Albuterol Sulfate Inhaler - [Ventolin HFA Inhaler -] 1 inh PO Q4H PRN 08/19/16 Glipizide [Glucotrol -] 2.5 mg PO DAILY 08/19/16 Insulin Aspart [Novolog] 0 unit SQ AM 08/19/16 Mag Carb/Al Hydrox/Alginic AC [Gaviscon Extra Strength Liquid] 60 ml PO QID PRN 08/19/16 Phenylephrine HCl [Hemorrhoidal Suppository] 1 each RC HS PRN 08/19/16 Phenylephrine HCl/Witch Lyla [Preparation H Cooling Gel] 51 gm TP DAILY
[2016-08-28 10:50] VITALS: BP 185/80; PULSE 66; TEMP 98.5
--- NOTE | 2016-08-28 13:12 | PATH ---
Surgical Pathology Report Patient Name: FANG PERDOMO [facility]. Rec. #: [id number] /Age/Gender: 1935 (Age: 81) / F Account: [id number] Location: [address] [place] [address] Taken: 08/27/2016 Received: 08/27/2016 Reported: 08/28/2016 Physicians: Casimiro Salguero M.D. Specimen(s) Received A: BX SECOND PORTION DUODENUM AND DUODENAL BULB B: BX ANTRUM Clinical History Nausea and vomiting Erosive gastritis, hiatal hernia Final Diagnosis A. DUODENUM, SECOND PORTION AND BULB, BIOPSY: DUODENAL MUCOSA WITH FOCAL ACTIVE AND CHRONIC INFLAMMATION AND JOSAFAT'S GLANDS HYPERPLASIA. NO HISTOLOGIC EVIDENCE OF GLUTEN SENSITIVE ENTEROPATHY (CELIAC DISEASE). B. STOMACH, ANTRUM, BIOPSY: GASTRIC ANTRAL AND OXYNTIC MUCOSA MODERATE CHRONIC GASTRITIS AND MILD REACTIVE GASTROPATHY. NO H. PYLORI ORGANISMS IDENTIFIED WITH GIEMSA STAIN. Electronically Signed Fredo Anand M.D. Gross Description A. Received in formalin, labeled "biopsy second portion of duodenum and duodenal bulb" are 2 santos, irregular portions of soft tissue measuring 0.4 and 0.5 cm in greatest dimension. The specimens are submitted in toto in one cassette. B. Received in formalin, labeled "biopsy antrum" are 3 santos, irregular portions of soft tissue ranging from 0.2-0.4 cm in greatest dimension. The specimens are submitted in toto in one cassette. /08/27/201608/27/2016
== END 2016-08-28 11:31 | DRG 74 ==
LOC: JER 14:42 → JERBED 19:58 → J5S 23:56
PROVIDERS: ADMIT Internal Medicine; ATTEND Internal Medicine
PROC: 0DB68ZX Excision of Stomach, Via Natural or Artificial Opening Endoscopic, Diagnostic (ICD-10-PCS; 2016-08-27)
PROC: 0DB98ZX Excision of Duodenum, Via Natural or Artificial Opening Endoscopic, Diagnostic (ICD-10-PCS; principal; 2016-08-27 08:00)
DX: E11.43 Type 2 diabetes mellitus with diabetic autonomic (poly)neuropathy (principal); K31.84 Gastroparesis; E03.9 Hypothyroidism, unspecified; K21.9 Gastro-esophageal reflux disease without esophagitis; I25.10 Atherosclerotic heart disease of native coronary artery without angina pectoris; J44.9 Chronic obstructive pulmonary disease, unspecified; E78.5 Hyperlipidemia, unspecified; M54.5 Low back pain; M19.90 Unspecified osteoarthritis, unspecified site; Z95.5 Presence of coronary angioplasty implant and graft; Z87.891 Personal history of nicotine dependence; A63.8 Other specified predominantly sexually transmitted diseases; K22.8 Other specified diseases of esophagus; K44.9 Diaphragmatic hernia without obstruction or gangrene; K25.9 Gastric ulcer, unspecified as acute or chronic, without hemorrhage or perforation; Z86.711 Personal history of pulmonary embolism; Z86.718 Personal history of other venous thrombosis and embolism
CPT/HCPCS: 36415; 70450-TC; 74176-TC; 74247-TC; 76705-TC; 80053; 81003; 81015; 82150; 82550; 83690; 83735; 84484; 85025; 87086; 88305-TC; 90670; 93005; 93010; 97116-GP; 97161-GP; 99284-25; 99285-25

== ENCOUNTER 2016-10-30 16:51 | Emergency (ER) | payer OTHER ==
--- NOTE | 2016-10-30 17:18 | PDOC ---
History of Present Illness - History of Present Illness Initial Comments: 10/30/16 17:44 Patient is an 81 year old female from [facility] with significant medical hx of spinal stenosis, hypothyroidism, AFib, DM, GERD, HTN, HLD, vertigo, CAD s/p stents x 6, COPD, GERD, prior PE and DVT who is presenting to the ED with lower back pain and left hip pain for about a year. Patient complains of lower back pain and left sided hip pain. EMS reports the patient has been limping to her left side. Patient also endorses some numbness to her right leg which appears to be chronic. long-term papers report the patient received an x-ray of the bilateral hip which revealed possible non displaced fracture of the greater trochanter. She was sent to the ED for rule out hip fracture. Patient uses a walker to ambulate. Allergies: oxycodone, penicillins, prednisone <Lorena Augustine - Last Filed: 10/30/16 17:44> <Mary Perez - Last Filed: 10/31/16 00:08> - General Chief Complaint: Pain Stated Complaint: HIP PAIN Time Seen by Provider: 10/30/16 17:03 Past History <Lorena Augustine - Last Filed: 10/30/16 17:44> - Past Medical History Anemia: No Asthma: Yes Cardiac Disorders: Yes (CAD, Stents, angina) CVA: No COPD: Yes Dementia: No Diabetes: Yes GI Disorders: Yes (esophageal reflux) Disorders: No HTN: Yes Hypercholesterolemia: Yes Liver Disease: No Suicide Attempt (Hx): No Seizures: No Thyroid Disease: Yes (hypo) - Surgical History Abdominal Surgery: Yes Appendectomy: Yes Cardiac Surgery: Yes (STENTS X 5) Cholecystectomy: No Lung Surgery: No Neurologic Surgery: No - Immunization History Immunization Up to Date: Yes - Psycho/Social/Smoking Cessation Hx Anxiety: No Suicidal Ideation: No Smoking Status: No Smoking History: Former smoker Have you smoked in the past 12 months: No Number of Cigarettes Smoked Daily: 0 If you are a former smoker, when did you quit?: 30 yrs ago Cigars Per Day: 0 Hx Alcohol Use: No Drug/Substance Use Hx: No Substance Use Type: None Hx Substance Use Treatment: No <Mary Perez - Last Filed: 10/31/16 00:08> - Past Medical History Allergies/Adverse Reactions: Allergies Allergy/AdvReac Type Severity Reaction Status Date / Time Penicillins Allergy Intermediate Rash Verified 08/19/16 15:00 oxycodone HCl [From Percocet] AdvReac Intermediate Verified 08/19/16 15:00 prednisone AdvReac Verified 08/19/16 15:00 Home Medications: Ambulatory Orders Acetaminophen [Tylenol .Regular Strength -] 650 mg PO Q6H PRN #120 tablet Apixaban [Eliquis -] 5 mg PO BID #180 tablet 04/27/16 Isosorbide Mononitrate [Imdur -] 60 mg PO DAILY #90 tab.sr.24h 04/27/16 Levothyroxine [Synthroid -] 50 mcg PO DAILY@0700 #90 tablet 04/27/16 Meclizine HCl [Antivert -] 12.5 mg PO Q8H PRN #90 tablet 04/27/16 Metoprolol Succinate [Toprol XL -] 100 mg PO DAILY #90 tab.sr.24h 04/27/16 Polyethylene Glycol 3350 [Miralax 119 gm Btl -] 17 gm PO DAILY PRN #90 bottle Ranitidine HCl [Zantac] 150 mg PO HS PRN #90 tablet 04/27/16 Ranolazine [Ranexa] 500 mg PO BID #180 tab.er.12h 04/27/16 Simvastatin 40 mg PO HS #90 tablet 04/27/16 Cholecalciferol (Vitamin D3) [Vitamin D3 -] 4,000 unit PO DAILY 05/31/16 Docusate Sodium [Colace -] 100 mg PO BID 05/31/16 Albuterol Sulfate Inhaler - [Ventolin HFA Inhaler -] 1 inh PO Q4H PRN 08/19/16 Glipizide [Glucotrol -] 2.5 mg PO DAILY 08/19/16 Insulin Aspart [Novolog Flexpen] 0 unit SQ AM 08/19/16 Losartan Potassium [Cozaar -] 50 mg PO DAILY tablet 08/28/16 Pantoprazole Sodium [Protonix -] 40 mg PO BID 08/28/16 Insulin Lispro [Humalog] 100 unit SQ AM 10/30/16 Review of Systems - Review of Systems Comments:: 10/30/16 17:46 GENERAL/CONSTITUTIONAL: No fever or chills. No weakness. HEAD, EYES, EARS, NOSE AND THROAT: No change in vision. No ear pain or discharge. No sore throat. CARDIOVASCULAR: No chest pain or shortness of breath. RESPIRATORY: No cough, wheezing, or hemoptysis. GASTROINTESTINAL: No nausea, vomiting, diarrhea or constipation. GENITOURINARY: No dysuria, frequency, or change in urination. MUSCULOSKELETAL: Lower back pain, left hip pain. No neck pain. ENDOCRINE: No increased thirst. No abnormal weight change. SKIN: No rash NEUROLOGIC: Right leg numbness. No headache, vertigo, loss of consciousness, or change in strength. <Lorena Augustine - Last Filed: 10/30/16 17:44> *Physical Exam - Vital Signs Last Vital Signs Temp Pulse Resp BP Pulse Ox 97.7 F 64 18 156/66 95 10/30/16 17:33 10/30/16 17:33 10/30/16 17:33 10/30/16 17:33 10/30/16 17:33 - Physical Exam Comments: 10/30/16 17:48 GENERAL: Awake, alert, and fully oriented, in no acute distress HEAD: No signs of trauma EYES: PERRLA, EOMI, sclera anicteric, conjunctiva clear ENT: Auricles normal inspection, hearing grossly normal, nares patent, oropharynx clear without exudates. Moist mucosa NECK: Normal ROM, supple, no lymphadenopathy, JVD, or masses LUNGS: Breath sounds equal, clear to auscultation bilaterally. No wheezes, and no crackles HEART: Regular rate and rhythm, normal S1 and S2, no murmurs, rubs or gallops ABDOMEN: Soft, nontender, normoactive bowel sounds. No guarding, no rebound. No masses MUSCULOSKELETAL: Left CVA tenderness. Lower spine tenderness. Left hip tenderness. Bilateral hip pain with flexion and extension. EXTREMITIES: Normal range of motion, no edema. No clubbing or cyanosis. No cords, erythema, or tenderness NEUROLOGICAL: Good strength both upper and lower extremities. Sensation intact Cranial nerves II through XII grossly intact. Normal speech SKIN: Warm, Dry, normal turgor, no rashes or lesions noted. HEMATOLOGIC/LYMPHATIC: No anemia, easy bleeding, or history of blood clots. ALLERGIC/IMMUNOLOGIC: No hives or skin allergy. \ <Lorena Augustine - Last Filed: 10/30/16 17:44> Heart Score/ECG Review - ECG Intrepretation Rhythm: Regularly Irregular Comment:: 10/30/16 18:19 rate 67 bpm, TWI I, AVL v4, - v6 <Mary Perez - Last Filed: 10/31/16 00:08> Medical Decision Making - Medical Decision Making 10/30/16 17:14 81 yo F wit h/o HTN afib, OA, hypothyroid, COPD., walks with walker, here from assisted living/ nursing facility with c/o left low back, coccyx pain. pt denies trauma. had xrays performed which were concerning for possible left hip fracture. no new numbness or weakness. states had old injury and ho spinal stenosis, no new weakness or numbness. on physical exam, awake , alert, pt with normal heart and lung exam. left hip ttp, pain with hip flexion, extension bilaterally. sensation intact bilat lower ext. 5/5 bilat lower ext strenth. differential: occult or pathological hip fx, spinal compression fx. plan ls spine xray, hip xrays, possible ct if nondiagnostic. 10/31/16 00:08 ct pelvis no acute fracture. d/w dr pollard will transfer back to nursing facility. <Mary Perez - Last Filed: 10/31/16 00:08> *DC/Admit/Observation/Transfer - Attestations Scribe Attestion: 10/30/16 17:50 Documentation prepared by Lorena Augustine, acting as medical laboratory manager for Mary Perez MD. <Lorena Augustine - Last Filed: 10/30/16 17:44> - Discharge Dispostion Admit: No <Mary Perez - Last Filed: 10/31/16 00:08> Diagnosis at time of Disposition: Hip pain - Discharge Dispostion Disposition: TRANSFER ACUTE CARE/OTHER HOSP Condition at time of disposition: Good
[2016-10-30 17:39] VITALS: BMI 30.9
[2016-10-30 19:31] VITALS: BP 156/79; PULSE 68; TEMP 97.8
--- NOTE | 2016-10-31 16:16 | EKG ---
Test Reason : Blood Pressure : / mmHG Vent. Rate : 067 BPM Atrial Rate : 067 BPM P-R Int : 190 ms QRS Dur : 074 ms QT Int : 406 ms P-R-T Axes : 073 046 164 degrees QTc Int : 429 ms NORMAL SINUS RHYTHM CANNOT RULE OUT ANTERIOR INFARCT , AGE UNDETERMINED T WAVE ABNORMALITY, CONSIDER LATERAL ISCHEMIA ABNORMAL ECG WHEN COMPARED WITH ECG OF 19-AUG-2016 16:20, MINIMAL CRITERIA FOR INFERIOR INFARCT ARE NO LONGER PRESENT NONSPECIFIC T WAVE ABNORMALITY NOW EVIDENT IN INFERIOR LEADS T WAVE INVERSION MORE EVIDENT IN LATERAL LEADS Confirmed by ROSIO HEAD MD ([id number]) on 10/31/2016 4:16:00 PM Referred By: Confirmed By:ROSIO HEAD MD
== END 2016-10-31 02:08 ==
LOC: JER 16:51
DX: M25.552 Pain in left hip (principal); I25.10 Atherosclerotic heart disease of native coronary artery without angina pectoris; I10 Essential (primary) hypertension; Z95.5 Presence of coronary angioplasty implant and graft; I48.91 Unspecified atrial fibrillation; Z79.01 Long term (current) use of anticoagulants; E11.9 Type 2 diabetes mellitus without complications; Z79.4 Long term (current) use of insulin; Z79.84 Long term (current) use of oral hypoglycemic drugs; E03.9 Hypothyroidism, unspecified; E78.00 Pure hypercholesterolemia, unspecified; Z86.718 Personal history of other venous thrombosis and embolism; Z86.711 Personal history of pulmonary embolism; R26.89 Other abnormalities of gait and mobility; Z99.89 Dependence on other enabling machines and devices
CPT/HCPCS: 71010-TC; 72100-TC; 72192-TC; 73502-TC-RT; 73523-TC; 93005; 93010; 99283-25

== ENCOUNTER 2016-11-12 18:32 | Inpatient (IN) | payer OTHER ==
[2016-11-12] MEDS ORDERED: ALBUTEROL SO4 2.5/IPRATROPIUM 0.5 INH SOL 3 ML VIAL.NEB. NEB ONE ×3 (18:44→19:05)
--- NOTE | 2016-11-12 19:04 | PDOC ---
History of Present Illness - General History Source: Patient Exam Limitations: No Limitations - History of Present Illness Initial Comments: 11/12/16 19:07 Patient is an 81 year old female from [facility] with significant medical hx of asthma/COPD, spinal stenosis, hypothyroidism, AFib, DM, GERD, HTN, HLD, vertigo , CAD s/p stents x 6, GERD, prior PE and DVT who is presenting to the ED sent from [place] with cough and chest pain for 3 days. She notes a productive cough with yellow phlegm. Patient reports chest pain with cough. She describes the chest pain as across the chest discomfort. She denies any fever or chills. 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 Callahan PCP - Dr. Liyah Wang <Magi Melendez - Last Filed: 11/12/16 20:34> <Mary Perez - Last Filed: 11/12/16 20:49> - General Chief Complaint: Cold Symptoms Stated Complaint: CHEST PAIN Time Seen by Provider: 11/12/16 18:57 Past History <Magi Melendez - Last Filed: 11/12/16 20:34> - Past Medical History Anemia: No Asthma: Yes Cardiac Disorders: Yes (CAD, Stents, angina) CVA: No COPD: Yes Dementia: No Diabetes: Yes GI Disorders: Yes (esophageal reflux) Disorders: No HTN: Yes Hypercholesterolemia: Yes Liver Disease: No Suicide Attempt (Hx): No Seizures: No Thyroid Disease: Yes (hypo) - Surgical History Abdominal Surgery: Yes Appendectomy: Yes Cardiac Surgery: Yes (STENTS X 5) Cholecystectomy: No Lung Surgery: No Neurologic Surgery: No - Immunization History Immunization Up to Date: Yes - Psycho/Social/Smoking Cessation Hx Anxiety: No Suicidal Ideation: No Smoking Status: No Smoking History: Former smoker Have you smoked in the past 12 months: No Number of Cigarettes Smoked Daily: 0 If you are a former smoker, when did you quit?: 30 yrs ago Cigars Per Day: 0 Information on smoking cessation initiated: No Hx Alcohol Use: No Drug/Substance Use Hx: No Substance Use Type: None Hx Substance Use Treatment: No <Mary Perez - Last Filed: 11/12/16 20:49> - Past Medical History Allergies/Adverse Reactions: Allergies Allergy/AdvReac Type Severity Reaction Status Date / Time Penicillins Allergy Intermediate Rash Verified 11/12/16 18:35 oxycodone HCl [From Percocet] AdvReac Intermediate Verified 11/12/16 18:35 prednisone AdvReac Verified 11/12/16 18:35 Home Medications: Ambulatory Orders Acetaminophen [Tylenol .Regular Strength -] 650 mg PO Q6H PRN #120 tablet Apixaban [Eliquis -] 5 mg PO BID #180 tablet 04/27/16 Isosorbide Mononitrate [Imdur -] 60 mg PO DAILY #90 tab.sr.24h 04/27/16 Levothyroxine [Synthroid -] 50 mcg PO DAILY@0700 #90 tablet 04/27/16 Meclizine HCl [Antivert -] 12.5 mg PO Q8H PRN #90 tablet 04/27/16 Metoprolol Succinate [Toprol XL -] 100 mg PO DAILY #90 tab.sr.24h 04/27/16 Polyethylene Glycol 3350 [Miralax 119 gm Btl -] 17 gm PO DAILY PRN #90 bottle Ranitidine HCl [Zantac] 150 mg PO HS PRN #90 tablet 04/27/16 Ranolazine [Ranexa] 500 mg PO BID #180 tab.er.12h 04/27/16 Cholecalciferol (Vitamin D3) [Vitamin D3 -] 4,000 unit PO DAILY 05/31/16 Docusate Sodium [Colace -] 100 mg PO BID 05/31/16 Albuterol Sulfate Inhaler - [Ventolin HFA Inhaler -] 1 inh PO Q4H PRN 08/19/16 Glipizide [Glucotrol -] 2.5 mg PO DAILY 08/19/16 Losartan Potassium [Cozaar -] 50 mg PO DAILY tablet 08/28/16 Insulin Lispro [Humalog] 0 unit SQ AM 10/30/16 Lactulose 10 gm PO DAILY 11/12/16 Tiotropium [place] [Spiriva] 18 mcg IH DAILY 11/12/16 Review of Systems - Review of Systems Able to Perform ROS?: Yes Comments:: 11/12/16 19:08 GENERAL/CONSTITUTIONAL: No fever or chills. No weakness. HEAD, EYES, EARS, NOSE AND THROAT: No change in vision. No ear pain or discharge. No sore throat. GASTROINTESTINAL: No nausea, vomiting, diarrhea or constipation. GENITOURINARY: No dysuria, frequency, or change in urination. CARDIOVASCULAR: (+)chest pain, (+)shortness of breath. RESPIRATORY: (+)cough. No wheezing, or hemoptysis. MUSCULOSKELETAL: No joint or muscle swelling or pain. No neck or back pain. SKIN: No rash NEUROLOGIC: No headache, vertigo, loss of consciousness, or change in strength/ sensation. ENDOCRINE: No increased thirst. No abnormal weight change. HEMATOLOGIC/LYMPHATIC: No anemia, easy bleeding, or history of blood clots. ALLERGIC/IMMUNOLOGIC: No hives or skin allergy. <Magi Melendez - Last Filed: 11/12/16 20:34> *Physical Exam - Vital Signs Last Vital Signs Temp Pulse Resp BP Pulse Ox 99.1 F 86 20 170/80 96 11/12/16 18:48 11/12/16 18:48 11/12/16 18:48 11/12/16 18:48 11/12/16 18:48 - Physical Exam Comments: 11/12/16 19:09 GENERAL: (+)Tachepneic. Awake, alert, and fully oriented, in no acute distress HEAD: No signs of trauma EYES: PERRLA, EOMI, sclera anicteric, conjunctiva clear ENT: Auricles normal inspection, nares patent, Moist mucosa NECK: Normal ROM, supple, no lymphadenopathy, JVD, or masses LUNGS: (+)Accessory muscle use, (+)bilateral wheezing. Breath sounds equal. no crackles HEART: Regular rate and rhythm, normal S1 and S2, no murmurs, rubs or gallops ABDOMEN: Soft, nontender, normoactive bowel sounds. No guarding, no rebound. No masses EXTREMITIES: Well perfused bilateral LE. Normal range of motion, no edema. No clubbing or cyanosis. No cords, erythema, or tenderness NEUROLOGICAL: Normal speech SKIN: Warm, Dry, normal turgor, no rashes or lesions noted. <Magi Melendez - Last Filed: 11/12/16 20:34> - Vital Signs Last Vital Signs Temp Pulse Resp BP Pulse Ox 99.1 F 86 20 170/80 96 11/12/16 18:48 11/12/16 18:48 11/12/16 18:48 11/12/16 18:48 11/12/16 18:48 <Mary Perez - Last Filed: 11/12/16 20:49> Heart Score/ECG Review #1 ECG reviewed & interpreted by me at: 19:46 General ECG Interpretation: Sinus Rhythm, Normal Rate (95 bpm sinus tachycardia) , Normal Intervals, No acute ischemic changes <Mary Perez - Last Filed: 11/12/16 20:49> ED Treatment Course - LABORATORY CBC & Chemistry Diagram: 11/12/16 19:11 11/12/16 19:11 - Medications Given in the ED: ED Medications Discontinued Medications Generic Name Dose Route Start Last Admin Trade Name Freq PRN Reason Stop Dose Admin Albuterol/Ipratropium 1 amp 11/12/16 18:44 11/12/16 18:50 Duoneb - NEB 11/12/16 18:45 1 amp ONCE ONE Administration <Magi Melendez - Last Filed: 11/12/16 20:34> - LABORATORY CBC & Chemistry Diagram: 11/12/16 19:11 11/12/16 19:11 - RADIOLOGY Radiology Studies Ordered: Category Date Time Status CHEST X-RAY PORTABLE* [RAD] Stat Radiology 11/12/16 18:44 Ordered - Medications Given in the ED: ED Medications Discontinued Medications Generic Name Dose Route Start Last Admin Trade Name Freq PRN Reason Stop Dose Admin Albuterol/Ipratropium 1 amp 11/12/16 18:44 11/12/16 18:50 Duoneb - NEB 11/12/16 18:45 1 amp ONCE ONE Administration <Mary Perez - Last Filed: 11/12/16 20:49> Medical Decision Making - Medical Decision Making 11/12/16 20:35 A call was placed to Dr. Liyah Wang at her service. Awaiting a call back. <Magi Melendez - Last Filed: 11/12/16 20:34> - Medical Decision Making 11/12/16 18:59 81 yo F it h/o HTN COPD / asthma, prior PE/DVT, CAD 6 stents , here wtih c/o sob. started 2 days ago. cough productive yellow phlegm. no f/c does have chest pain worse with coughing. no n/v leg swelling. does have some pain betwen coughing radiating across her chest. no recent intubations. states not allergic to prednisone , causes psychosis, but tolerate at lower doses in the past. no other complaints. on exam pt awake, some accessory muscle use, bilateral wheezing. heart RR no m/r /g. abd soft NT. ext NT no edema. differential; asthma, pna, copd. chf, unlikley PE due to cough productive phlegm , other diagnosis more likley. plan duonebs, low dose steroids, ekg labs r/o acs , cxr . reassess. possible admission. 11/12/16 20:48 pt much improved following albuterol. d/w dr. wang, will cover antiobitios due to yellow phelgm, cxr with poor inspiratory effort, blunting left side. admitted to [facility] due to chest pain. <Mary Perez - Last Filed: 11/12/16 20:49> *DC/Admit/Observation/Transfer - Attestations Scribe Attestion: 11/12/16 19:11 Documentation prepared by KAITLYNN Michael, acting as hospital medical biller for Mary Perez MD. <Magi Melendez - Last Filed: 11/12/16 20:34> - Discharge Dispostion Admit: Yes <Mary Perez - Last Filed: 11/12/16 20:49> Diagnosis at time of Disposition: COPD (chronic obstructive pulmonary disease) with acute bronchitis, Bronchitis , asthmatic - Referrals Referrals: Liyah Wang [Primary Care Provider] -
[2016-11-12] MEDS ORDERED: methylPREDNISolone NA SUCC 40 MG/1 ML VIAL IVPB ONE (19:25)
[2016-11-12] MEDS ORDERED: methylPREDNISolone NA SUCC 40 MG/1 ML VIAL ONE (19:29)
[2016-11-12 19:40] LABS: BASOPHIL 0.2 % (0-2.0); EOSINOPHIL 0.5 % (0-4.5); MCHC 33.2 g/dl (32.0-36.0); MEAN CELL VOLUME 93.6 fl (80-96); MEAN PLT VOLUME 10.3 fl (7.5-11.1); NEUTROPHILS 65.2 % (42.8-82.8); PLATELET COUNT 138 K/MM3 (134-434); RDW 13.6 % (11.6-15.6); WHITE BLOOD COUNT 5.7 K/mm3 (4.0-10.0)
[2016-11-12 20:12] LABS: ALBUMIN 3.9 g/dl (3.4-5.0); BILIRUBIN,TOTAL 0.5 mg/dL (0.2-1.0); CALCIUM 9.4 mg/dL (8.5-10.1); CREATININE 1.1 mg/dL (0.55-1.02); TOT PROT 7.8 g/dl (6.4-8.2)
[2016-11-12 20:19] LABS: TROPONIN I < 0.02 ng/ml (0.00-0.05)
[2016-11-12 20:31] VITALS: BMI 32.8
[2016-11-12] MEDS ORDERED: LEVOFLOXACIN 750 MG IVPB 150 ML IVPB ONE ×2 (20:32→20:35)
[2016-11-12] MEDS ORDERED: RANITIDINE HCL 150 MG TABLET (FP) PO PRN (22:07)
[2016-11-12] MEDS ORDERED: MECLIZINE HCL 12.5 MG TABLET PO PRN (22:07)
[2016-11-12] MEDS ORDERED: POLYETHYLENE GLYCOL 3350 119 GM BTL PO PRN (22:07)
[2016-11-12] MEDS ORDERED: ACETAMINOPHEN 325 MG TABLET (FP) PO PRN (22:07)
[2016-11-12] MEDS ORDERED: ALBUTEROL SO4 6.7 GM HFA INHALER IH PRN (22:07)
[2016-11-12] MEDS ORDERED: methylPREDNISolone NA SUCC 40 MG/1 ML VIAL IVPB SCH (22:30)
[2016-11-13] MEDS: methylPREDNISolone NA SUCC 40 MG/1 ML VIAL IVPB SCH ×3 (03:07→17:20)
[2016-11-13] MEDS ORDERED: LEVOTHYROXINE NA 50 MCG TABLET (FP) PO SCH (07:00)
[2016-11-13] MEDS: INSULIN SLIDING SCALE (NOVOLOG) 1 VIAL SQ SCH ×4 (07:05→23:02)
[2016-11-13] MEDS: glipiZIDE 5 MG TABLET (FP) PO SCH (07:05)
[2016-11-13 09:15] LABS: ALBUMIN 3.4 g/dl (3.4-5.0); ALK PHOS 51 U/L (45-117); ANION GAP 11 (8-16); BILIRUBIN,TOTAL 0.4 mg/dL (0.2-1.0); CO2 24 mmol/L (21-32); CREATININE 0.9 mg/dL (0.55-1.02); GLUCOSE,RANDOM 188 mg/dL (74-106); SGOT/AST 21 U/L (15-37); SGPT/ALT 15 U/L (12-78); THYROID STIMULATING HORMONE 0.19 uIU/ml (0.358-3.74); TOT PROT 7.3 g/dl (6.4-8.2); TROPONIN I < 0.02 ng/ml (0.00-0.05)
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
[2016-11-13] MEDS ORDERED: ISOSORBIDE MONONITRATE 60 MG TAB.SR.24H (FP) PO SCH (10:00)
[2016-11-13] MEDS: LEVOFLOXACIN 500 MG IVPB 100 ML IVPB SCH (10:00)
[2016-11-13] MEDS: LACTULOSE 20 GM/30 ML UDC (FOR ORAL USE ONLY) PO SCH (10:00)
[2016-11-13] MEDS: RANOLAZINE E.R. 500 MG TABLET (FP) PO SCH ×2 (10:01→23:13)
[2016-11-13] MEDS: LOSARTAN POTASSIUM 50 MG TABLET (FP) PO SCH (10:01)
[2016-11-13] MEDS: METOPROLOL SUCCINATE 100 MG TAB.SR.24H (FP) PO SCH (10:01)
[2016-11-13] MEDS: CHOLECALCIFEROL (VITAMIN D3) 1,000 UNIT TABLET (FP) PO SCH (10:02)
[2016-11-13] MEDS: DOCUSATE SODIUM 100 MG CAPSULE (FP) PO SCH ×2 (10:02→23:13)
[2016-11-13] MEDS: ACLIDINIUM BROMIDE 400 MCG/INH AERO.POWD IH SCH ×2 (10:02→23:14)
[2016-11-13] MEDS: ISOSORBIDE MONONITRATE 30 MG TAB.SR.24H (FP) PO SCH (10:02)
[2016-11-13] MEDS: APIXABAN 5 MG TABLET PO SCH ×2 (10:02→23:13)
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
--- NOTE | 2016-11-13 16:29 | EKG ---
Test Reason : Blood Pressure : / mmHG Vent. Rate : 095 BPM Atrial Rate : 095 BPM P-R Int : 194 ms QRS Dur : 070 ms QT Int : 366 ms P-R-T Axes : 072 010 110 degrees QTc Int : 459 ms NORMAL SINUS RHYTHM NONSPECIFIC T WAVE ABNORMALITY ABNORMAL ECG WHEN COMPARED WITH ECG OF 30-OCT-2016 18:14, NONSPECIFIC T WAVE ABNORMALITY HAS REPLACED INVERTED T WAVES IN LATERAL LEADS Confirmed by PRECIOUS JAMES, SHERI ([id number]) on 11/13/2016 4:28:41 PM Referred By: Confirmed By:SHERI LANG MD
[2016-11-14] MEDS: methylPREDNISolone NA SUCC 40 MG/1 ML VIAL IVPB SCH ×4 (01:23→17:11)
[2016-11-14] MEDS: LEVOTHYROXINE NA 25 MCG TABLET (FP) PO SCH (06:44)
[2016-11-14] MEDS: glipiZIDE 5 MG TABLET (FP) PO SCH (06:44)
[2016-11-14] MEDS: INSULIN SLIDING SCALE (NOVOLOG) 1 VIAL SQ SCH ×4 (06:47→21:22)
[2016-11-14] MEDS: ACLIDINIUM BROMIDE 400 MCG/INH AERO.POWD IH SCH ×2 (10:00→21:22)
[2016-11-14] MEDS: PANTOPRAZOLE 20 MG TABLET (FP) PO SCH (10:38)
[2016-11-14] MEDS: LEVOFLOXACIN 500 MG IVPB 100 ML IVPB SCH (10:38)
[2016-11-14] MEDS: APIXABAN 5 MG TABLET PO SCH ×2 (10:38→21:15)
[2016-11-14] MEDS: CHOLECALCIFEROL (VITAMIN D3) 1,000 UNIT TABLET (FP) PO SCH (10:38)
[2016-11-14] MEDS: RANOLAZINE E.R. 500 MG TABLET (FP) PO SCH ×2 (10:38→21:15)
[2016-11-14] MEDS: DOCUSATE SODIUM 100 MG CAPSULE (FP) PO SCH ×2 (10:38→21:15)
[2016-11-14] MEDS: ISOSORBIDE MONONITRATE 30 MG TAB.SR.24H (FP) PO SCH (10:38)
[2016-11-14] MEDS: METOPROLOL SUCCINATE 100 MG TAB.SR.24H (FP) PO SCH (10:39)
[2016-11-14] MEDS: LOSARTAN POTASSIUM 50 MG TABLET (FP) PO SCH (10:39)
[2016-11-14] MEDS: LACTULOSE 20 GM/30 ML UDC (FOR ORAL USE ONLY) PO SCH (10:39)
--- NOTE | 2016-11-14 11:49 | PN ---
Progress Note, Physician Chief Complaint: in bed feels better less cough no CP less SOB; afebrile, VSS - Current Medication List Current Medications: Active Medications Acetaminophen (Tylenol -) 650 mg PO Q6H PRN PRN Reason: FEVER OR PAIN Aclidinium [place] (Tudorza -) 1 puff IH BID [facility] Last Admin: 11/13/16 23:14 Dose: 1 puff Albuterol Sulfate (Ventolin Hfa Inhaler -) 1 puff IH Q4H PRN PRN Reason: SHORT OF BREATH/WHEEZING Apixaban (Eliquis -) 5 mg PO BID [facility] Last Admin: 11/14/16 10:38 Dose: 5 mg Cholecalciferol (Vitamin D3 -) 4,000 unit PO DAILY [facility] Last Admin: 11/14/16 10:38 Dose: 4,000 unit Docusate Sodium (Colace -) 100 mg PO BID [facility] Last Admin: 11/14/16 10:38 Dose: 100 mg Glipizide (Glucotrol -) 2.5 mg PO DAILY@0700 [facility] Last Admin: 11/14/16 06:44 Dose: 2.5 mg Levofloxacin (Levaquin 500 Mg Premixed Ivpb -) 100 mls @ 100 mls/hr IVPB DAILY@ 0800 [facility] Last Admin: 11/14/16 10:38 Dose: 100 mls/hr Insulin Aspart (Novolog Vial Sliding Scale -) 1 vial SQ ACHS [facility] PRN Reason: Protocol Last Admin: 11/14/16 06:47 Dose: 2 units Isosorbide Mononitrate (Imdur -) 90 mg PO DAILY [facility] Last Admin: 11/14/16 10:38 Dose: 90 mg Lactulose (Cephulac (Oral Use)) 10 gm PO DAILY [facility] Last Admin: 11/14/16 10:39 Dose: 10 gm Levothyroxine Sodium (Synthroid -) 25 mcg PO DAILY@0700 [facility] Last Admin: 11/14/16 06:44 Dose: 25 mcg Losartan Potassium (Cozaar -) 50 mg PO DAILY [facility] Last Admin: 11/14/16 10:39 Dose: 50 mg Meclizine HCl (Antivert -) 12.5 mg PO Q8H PRN PRN Reason: VERTIGO Methylprednisolone Sodium Succinate (Solu-Medrol -) 20 mg IVPB Q8H-IV [facility] Last Admin: 11/14/16 10:38 Dose: 20 mg Metoprolol Succinate (Toprol Xl -) 100 mg PO DAILY [facility] Last Admin: 11/14/16 10:39 Dose: 100 mg Pantoprazole Sodium (Protonix -) 20 mg PO DAILY [facility] Last Admin: 11/14/16 10:38 Dose: 20 mg Polyethylene Glycol (Miralax (For Daily Use) -) 17 gm PO DAILY PRN PRN Reason: CONSTIPATION Ranolazine (Ranexa -) 500 mg PO BID [facility] Last Admin: 11/14/16 10:38 Dose: 500 mg - Objective Vital Signs: Vital Signs Temperature 98.6 F 11/14/16 02:00 Pulse Rate 84 11/14/16 06:00 Respiratory Rate 20 11/14/16 06:00 Blood Pressure 167/87 11/14/16 06:00 O2 Sat by Pulse Oximetry (%) 95 11/13/16 21:00 Constitutional: Yes: No Distress, Calm Eyes: Yes: Conjunctiva Clear HENT: Yes: Atraumatic Neck: Yes: Supple Cardiovascular: Yes: Regular Rate and Rhythm Respiratory: Yes: CTA Bilaterally Gastrointestinal: Yes: Soft. No: Distention, Tenderness Genitourinary: No: CVA Tenderness - Left, CVA Tenderness - Right Musculoskeletal: No: Joint Stiffness, Joint Swelling Extremities: No: Cold, Cool Edema: No Peripheral Pulses WNL: Yes Integumentary: No: Rash, Venous Stasis Changes Neurological: Yes: WNL, Alert, Oriented ...Motor Strength: WNL Psychiatric: Yes: WNL, Alert, Oriented. No: Agitated, Suicidal Ideation Labs: CBC, BMP 11/13/16 06:00 - ....Imaging Other: Report Reviewed Assessment/Plan Patient is an 81 year old female from [facility] with significant medical hx of asthma/COPD, spinal stenosis, hypothyroidism, AFib, DM, GERD, HTN, HLD, vertigo , CAD s/p multivessel stents, diastolic dysfunction, hypothyroidism, GERD, prior PE and DVT, presented to the ED from [place] with productive cough with yellow phlegm, dyspnea, wheeze and chest tightness for 2 days without fevers or chills, reports improvement with inh therapy. Also CP, weakness, presyncope. admitted to telemetry CE and cardiology eval INH, antibiotics and iv steroids low dose close f/u falls decubs DVT gastric and aspiration pfx pt advised do not get OOB alone d/w pt and staff prognosis guarded BGM f/u while on steroids
--- NOTE | 2016-11-14 12:08 | PN ---
Progress Note, Physician History of Present Illness: Productive cough with yellow phlegm, dyspnea, wheeze and chest tightness continues to improve. - Current Medication List Current Medications: Active Medications Acetaminophen (Tylenol -) 650 mg PO Q6H PRN PRN Reason: FEVER OR PAIN Aclidinium [place] (Tudorza -) 1 puff IH BID [facility] Last Admin: 11/13/16 23:14 Dose: 1 puff Albuterol Sulfate (Ventolin Hfa Inhaler -) 1 puff IH Q4H PRN PRN Reason: SHORT OF BREATH/WHEEZING Apixaban (Eliquis -) 5 mg PO BID [facility] Last Admin: 11/14/16 10:38 Dose: 5 mg Cholecalciferol (Vitamin D3 -) 4,000 unit PO DAILY [facility] Last Admin: 11/14/16 10:38 Dose: 4,000 unit Docusate Sodium (Colace -) 100 mg PO BID [facility] Last Admin: 11/14/16 10:38 Dose: 100 mg Glipizide (Glucotrol -) 2.5 mg PO DAILY@0700 [facility] Last Admin: 11/14/16 06:44 Dose: 2.5 mg Levofloxacin (Levaquin 500 Mg Premixed Ivpb -) 100 mls @ 100 mls/hr IVPB DAILY@ 0800 [facility] Last Admin: 11/14/16 10:38 Dose: 100 mls/hr Insulin Aspart (Novolog Vial Sliding Scale -) 1 vial SQ ACHS [facility] PRN Reason: Protocol Last Admin: 11/14/16 06:47 Dose: 2 units Isosorbide Mononitrate (Imdur -) 90 mg PO DAILY [facility] Last Admin: 11/14/16 10:38 Dose: 90 mg Lactulose (Cephulac (Oral Use)) 10 gm PO DAILY [facility] Last Admin: 11/14/16 10:39 Dose: 10 gm Levothyroxine Sodium (Synthroid -) 25 mcg PO DAILY@0700 [facility] Last Admin: 11/14/16 06:44 Dose: 25 mcg Losartan Potassium (Cozaar -) 50 mg PO DAILY [facility] Last Admin: 11/14/16 10:39 Dose: 50 mg Meclizine HCl (Antivert -) 12.5 mg PO Q8H PRN PRN Reason: VERTIGO Methylprednisolone Sodium Succinate (Solu-Medrol -) 20 mg IVPB Q8H-IV [facility] Last Admin: 11/14/16 10:38 Dose: 20 mg Metoprolol Succinate (Toprol Xl -) 100 mg PO DAILY [facility] Last Admin: 11/14/16 10:39 Dose: 100 mg Pantoprazole Sodium (Protonix -) 20 mg PO DAILY [facility] Last Admin: 11/14/16 10:38 Dose: 20 mg Polyethylene Glycol (Miralax (For Daily Use) -) 17 gm PO DAILY PRN PRN Reason: CONSTIPATION Ranolazine (Ranexa -) 500 mg PO BID [facility] Last Admin: 11/14/16 10:38 Dose: 500 mg - Objective Vital Signs: Vital Signs Temperature 98.6 F 11/14/16 02:00 Pulse Rate 84 11/14/16 06:00 Respiratory Rate 20 11/14/16 06:00 Blood Pressure 167/87 11/14/16 06:00 O2 Sat by Pulse Oximetry (%) 95 11/13/16 21:00 Constitutional: Yes: No Distress, Calm Neck: Yes: Supple Cardiovascular: Yes: Regular Rate and Rhythm Respiratory: Yes: Regular, Diminished Gastrointestinal: Yes: Normal Bowel Sounds, Soft Edema: No Labs: CBC, BMP 11/13/16 06:00 Problem List - Problems (1) COPD (chronic obstructive pulmonary disease) with acute bronchitis Code(s): J44.0 - CHRONIC OBSTRUCTIVE PULMON DISEASE W ACUTE LOWER RESP INFCT (2) Diastolic dysfunction without heart failure Code(s): I51.9 - HEART DISEASE, UNSPECIFIED (3) A-fib Code(s): I48.91 - UNSPECIFIED ATRIAL FIBRILLATION Qualifiers: Atrial fibrillation type: paroxysmal Qualified Code(s): I48.0 - Paroxysmal atrial fibrillation (4) Atypical chest pain Code(s): R07.89 - OTHER CHEST PAIN (5) CAD (coronary artery disease) Code(s): I25.10 - ATHSCL HEART DISEASE OF [place] CORONARY ARTERY W/O ANG PCTRS Qualifiers: Coronary Disease-Associated Artery/Lesion type: [place] artery [place] vs. transplanted heart: [place] heart Associated angina: without angina Qualified Code(s): I25.10 - Atherosclerotic heart disease of [place] coronary artery without angina pectoris (6) H/O heart artery stent Code(s): Z95.5 - PRESENCE OF CORONARY ANGIOPLASTY IMPLANT AND GRAFT (7) Hypercholesteremia Code(s): E78.0 - PURE HYPERCHOLESTEROLEMIA * DO NOT USE * (8) Hypertension Code(s): I10 - ESSENTIAL (PRIMARY) HYPERTENSION Qualifiers: Hypertension type: essential hypertension Qualified Code(s): I10 - Essential (primary) hypertension (9) Hypothyroidism Code(s): E03.9 - HYPOTHYROIDISM, UNSPECIFIED Qualifiers: Hypothyroidism type: unspecified Qualified Code(s): E03.9 - Hypothyroidism, unspecified (10) Diastolic dysfunction Code(s): I51.9 - HEART DISEASE, UNSPECIFIED (11) Diabetes mellitus Code(s): E11.9 - TYPE 2 DIABETES MELLITUS WITHOUT COMPLICATIONS Qualifiers: Diabetes mellitus type: type 2 Diabetes mellitus complication status: without complication Diabetes mellitus long term acute care registered nurse insulin use: without jail use Qualified Code(s): E11.9 - Type 2 diabetes mellitus without complications Assessment/Plan 04/18/2013 Cath: Normal LV fxn, 40-50% ISR prox LAD, 80-90% mid LCx post LES, patent RCA stent 1. AE COPD with atypical post-tussive chest tightness improved 2. CAD post PCI/stent mildly abnormal MPI angina pectoris for medical therapy 3. Diastolic LV dysfunction with chronic class I NYHA classification LV failure , compensated 4. PAF->SR [id number] score of 6 on NOAC's 5. HTN/HCVD, not at goal 6. DM 7. Hypercholesterolemia 8. Hypothyroidism with abnl TSH 9. DVT/PE PLAN: 1. Continue BD, IV steroid taper, O2 as needed, empiric abx course 2. Continue Toprol XL 100 qd 2. Continue Losartan 50 mg daily 3. Continue Ranexa 500 bid 4. Continue Imdur 90 qd 5. Continue Lipitor 20 qhs 6. Continue Apixaban 5 bid with caution and close monitoring of CBC 7. D/c telemetry, check full TFTs, GI prophylaxis
[2016-11-15] MEDS: methylPREDNISolone NA SUCC 40 MG/1 ML VIAL IVPB SCH ×4 (02:20→22:44)
[2016-11-15] MEDS: glipiZIDE 5 MG TABLET (FP) PO SCH (06:40)
[2016-11-15] MEDS: INSULIN SLIDING SCALE (NOVOLOG) 1 VIAL SQ SCH ×4 (06:40→21:13)
[2016-11-15] MEDS: LEVOTHYROXINE NA 25 MCG TABLET (FP) PO SCH (06:40)
[2016-11-15] MEDS: LEVOFLOXACIN 500 MG IVPB 100 ML IVPB SCH (08:34)
[2016-11-15] MEDS: CHOLECALCIFEROL (VITAMIN D3) 1,000 UNIT TABLET (FP) PO SCH (10:23)
[2016-11-15] MEDS: PANTOPRAZOLE 20 MG TABLET (FP) PO SCH (10:23)
[2016-11-15] MEDS: LOSARTAN POTASSIUM 50 MG TABLET (FP) PO SCH (10:23)
[2016-11-15] MEDS: RANOLAZINE E.R. 500 MG TABLET (FP) PO SCH ×2 (10:23→21:08)
[2016-11-15] MEDS: APIXABAN 5 MG TABLET PO SCH ×2 (10:23→21:08)
[2016-11-15] MEDS: DOCUSATE SODIUM 100 MG CAPSULE (FP) PO SCH ×2 (10:27→21:08)
[2016-11-15] MEDS: METOPROLOL SUCCINATE 100 MG TAB.SR.24H (FP) PO SCH (10:27)
[2016-11-15] MEDS: LACTULOSE 20 GM/30 ML UDC (FOR ORAL USE ONLY) PO SCH (10:27)
[2016-11-15] MEDS: ISOSORBIDE MONONITRATE 30 MG TAB.SR.24H (FP) PO SCH (10:27)
[2016-11-15] MEDS ORDERED: PT OWN MED DRAWER 7, Y5N ONE ×2 (11:12→21:02)
[2016-11-15] MEDS: ACLIDINIUM BROMIDE 400 MCG/INH AERO.POWD IH SCH ×2 (11:14→21:08)
[2016-11-15] MEDS: LEVOFLOXACIN 500 MG TABLET (FP) PO SCH (11:18)
--- NOTE | 2016-11-15 11:30 | PN ---
Progress Note, Physician Chief Complaint: in bed nad feels better but had some sharp L CP seen by cardiology CXR LENA - Current Medication List Current Medications: Active Medications Acetaminophen (Tylenol -) 650 mg PO Q6H PRN PRN Reason: FEVER OR PAIN Last Admin: 11/15/16 08:34 Dose: 650 mg Aclidinium [place] (Tudorza -) 1 puff IH BID [facility] Last Admin: 11/15/16 11:14 Dose: Not Given Albuterol Sulfate (Ventolin Hfa Inhaler -) 1 puff IH Q4H PRN PRN Reason: SHORT OF BREATH/WHEEZING Apixaban (Eliquis -) 5 mg PO BID [facility] Last Admin: 11/15/16 10:23 Dose: 5 mg Cholecalciferol (Vitamin D3 -) 4,000 unit PO DAILY [facility] Last Admin: 11/15/16 10:23 Dose: 4,000 unit Docusate Sodium (Colace -) 100 mg PO BID [facility] Last Admin: 11/15/16 10:27 Dose: 100 mg Glipizide (Glucotrol -) 2.5 mg PO DAILY@0700 [facility] Last Admin: 11/15/16 06:40 Dose: 2.5 mg Insulin Aspart (Novolog Vial Sliding Scale -) 1 vial SQ ACHS [facility] PRN Reason: Protocol Last Admin: 11/15/16 06:40 Dose: 2 units Isosorbide Mononitrate (Imdur -) 90 mg PO DAILY [facility] Last Admin: 11/15/16 10:27 Dose: 90 mg Lactulose (Cephulac (Oral Use)) 10 gm PO DAILY [facility] Last Admin: 11/15/16 10:27 Dose: 10 gm Levofloxacin (Levaquin -) 500 mg PO DAILY@0600 [facility] Last Admin: 11/15/16 11:18 Dose: 500 mg Levothyroxine Sodium (Synthroid -) 25 mcg PO DAILY@0700 [facility] Last Admin: 11/15/16 06:40 Dose: 25 mcg Losartan Potassium (Cozaar -) 50 mg PO DAILY [facility] Last Admin: 11/15/16 10:23 Dose: 50 mg Meclizine HCl (Antivert -) 12.5 mg PO Q8H PRN PRN Reason: VERTIGO Methylprednisolone Sodium Succinate (Solu-Medrol -) 20 mg IVPB Q8H-IV [facility] Last Admin: 11/15/16 10:23 Dose: 20 mg Metoprolol Succinate (Toprol Xl -) 100 mg PO DAILY [facility] Last Admin: 11/15/16 10:27 Dose: 100 mg Pantoprazole Sodium (Protonix -) 20 mg PO DAILY [facility] Last Admin: 11/15/16 10:23 Dose: 20 mg Polyethylene Glycol (Miralax (For Daily Use) -) 17 gm PO DAILY PRN PRN Reason: CONSTIPATION Ranolazine (Ranexa -) 500 mg PO BID [facility] Last Admin: 11/15/16 10:23 Dose: 500 mg - Objective Vital Signs: Vital Signs Temperature 97.8 F 11/15/16 10:09 Pulse Rate 76 11/15/16 10:09 Respiratory Rate 18 11/15/16 10:09 Blood Pressure 128/68 11/15/16 10:09 O2 Sat by Pulse Oximetry (%) 95 11/14/16 21:00 Constitutional: Yes: No Distress Eyes: Yes: Conjunctiva Clear HENT: Yes: Atraumatic Neck: Yes: Supple Cardiovascular: Yes: Regular Rate and Rhythm Respiratory: Yes: CTA Bilaterally Gastrointestinal: Yes: Soft. No: Distention Genitourinary: No: CVA Tenderness - Left, CVA Tenderness - Right Extremities: No: Calf Tenderness, Cold, Cool Edema: No Integumentary: No: Rash, Venous Stasis Changes Neurological: Yes: WNL, Alert, Oriented ...Motor Strength: WNL Psychiatric: Yes: WNL, Alert, Oriented. No: Agitated, Suicidal Ideation Labs: CBC, BMP 11/13/16 06:00 - ....Imaging Other: Report Reviewed Assessment/Plan Patient is an 81 year old female from [facility] with significant medical hx of asthma/COPD, spinal stenosis, hypothyroidism, AFib, DM, GERD, HTN, HLD, vertigo , CAD s/p multivessel stents, diastolic dysfunction, hypothyroidism, GERD, prior PE and DVT, presented to the ED from [place] with productive cough with yellow phlegm, dyspnea, wheeze and chest tightness for 2 days without fevers or chills, reports improvement with inh therapy. Also CP, weakness, presyncope. admitted to telemetry CE and cardiology f/u INH, antibiotics and iv steroids low dose - taper close f/u falls decubs DVT gastric and aspiration pfx pt advised do not get OOB alone d/w pt and staff prognosis guarded BGM f/u while on steroids
--- NOTE | 2016-11-15 12:25 | PN ---
Progress Note, Physician Chief Complaint: Events noted Complains of back pain, cough productive and SOB intermittently History of Present Illness: Patient was seen and examined. Awake and alert. Chart was reviewed. Denies chest pain or palpitations. Complains of cough, scant productive sputum - Current Medication List Current Medications: Active Medications Acetaminophen (Tylenol -) 650 mg PO Q6H PRN PRN Reason: FEVER OR PAIN Last Admin: 11/15/16 08:34 Dose: 650 mg Aclidinium [place] (Tudorza -) 1 puff IH BID [facility] Last Admin: 11/15/16 11:14 Dose: Not Given Albuterol Sulfate (Ventolin Hfa Inhaler -) 1 puff IH Q4H PRN PRN Reason: SHORT OF BREATH/WHEEZING Apixaban (Eliquis -) 5 mg PO BID [facility] Last Admin: 11/15/16 10:23 Dose: 5 mg Cholecalciferol (Vitamin D3 -) 4,000 unit PO DAILY [facility] Last Admin: 11/15/16 10:23 Dose: 4,000 unit Docusate Sodium (Colace -) 100 mg PO BID [facility] Last Admin: 11/15/16 10:27 Dose: 100 mg Glipizide (Glucotrol -) 2.5 mg PO DAILY@0700 [facility] Last Admin: 11/15/16 06:40 Dose: 2.5 mg Insulin Aspart (Novolog Vial Sliding Scale -) 1 vial SQ ACHS [facility] PRN Reason: Protocol Last Admin: 11/15/16 11:55 Dose: 4 units Isosorbide Mononitrate (Imdur -) 90 mg PO DAILY [facility] Last Admin: 11/15/16 10:27 Dose: 90 mg Lactulose (Cephulac (Oral Use)) 10 gm PO DAILY [facility] Last Admin: 11/15/16 10:27 Dose: 10 gm Levofloxacin (Levaquin -) 500 mg PO DAILY@0600 [facility] Last Admin: 11/15/16 11:18 Dose: 500 mg Levothyroxine Sodium (Synthroid -) 25 mcg PO DAILY@0700 [facility] Last Admin: 11/15/16 06:40 Dose: 25 mcg Losartan Potassium (Cozaar -) 50 mg PO DAILY [facility] Last Admin: 11/15/16 10:23 Dose: 50 mg Meclizine HCl (Antivert -) 12.5 mg PO Q8H PRN PRN Reason: VERTIGO Methylprednisolone Sodium Succinate (Solu-Medrol -) 20 mg IVPB Q12H [facility] Last Admin: 11/15/16 12:08 Dose: Not Given Metoprolol Succinate (Toprol Xl -) 100 mg PO DAILY [facility] Last Admin: 11/15/16 10:27 Dose: 100 mg Pantoprazole Sodium (Protonix -) 20 mg PO DAILY [facility] Last Admin: 11/15/16 10:23 Dose: 20 mg Polyethylene Glycol (Miralax (For Daily Use) -) 17 gm PO DAILY PRN PRN Reason: CONSTIPATION Ranolazine (Ranexa -) 500 mg PO BID [facility] Last Admin: 11/15/16 10:23 Dose: 500 mg - Objective Vital Signs: Vital Signs Temperature 97.8 F 11/15/16 10:09 Pulse Rate 76 11/15/16 10:09 Respiratory Rate 18 11/15/16 10:09 Blood Pressure 128/68 11/15/16 10:09 O2 Sat by Pulse Oximetry (%) 95 11/14/16 21:00 HENT: Yes: Atraumatic Neck: Yes: Supple Cardiovascular: Yes: Regular Rate and Rhythm, S1, S2 Respiratory: Yes: Diminished Gastrointestinal: Yes: Normal Bowel Sounds, Soft. No: Tenderness Edema: No Additional Findings/Remarks: - Review of Systems Cardiovascular: Denies: Chest Pain. denies: Palpitations, (+) Shortness of Breath Respiratory: Reports: Cough, denies: Hemoptysis, Orthopnea, PND, (+) SOB, SOB on Exertion Gastrointestinal: denies: Abdominal Pain, Constipation, Diarrhea, Melena, Nausea , Rectal Bleeding, Vomiting Neurological: denies: Dizziness, Headache, Seizure, Syncope Labs: CBC, BMP 11/13/16 06:00 Problem List - Problems (1) Bronchitis, asthmatic Code(s): J45.909 - UNSPECIFIED ASTHMA, UNCOMPLICATED Qualifiers: Asthma severity: unspecified severity Asthma complication type: uncomplicated Qualified Code(s): J45.909 - Unspecified asthma, uncomplicated (2) COPD (chronic obstructive pulmonary disease) with acute bronchitis Code(s): J44.0 - CHRONIC OBSTRUCTIVE PULMON DISEASE W ACUTE LOWER RESP INFCT (3) Diastolic dysfunction Code(s): I51.9 - HEART DISEASE, UNSPECIFIED (4) A-fib Code(s): I48.91 - UNSPECIFIED ATRIAL FIBRILLATION Qualifiers: Atrial fibrillation type: paroxysmal Qualified Code(s): I48.0 - Paroxysmal atrial fibrillation (5) CAD (coronary artery disease) Code(s): I25.10 - ATHSCL HEART DISEASE OF [place] CORONARY ARTERY W/O ANG PCTRS Qualifiers: Coronary Disease-Associated Artery/Lesion type: [place] artery [place] vs. transplanted heart: [place] heart Associated angina: without angina Qualified Code(s): I25.10 - Atherosclerotic heart disease of [place] coronary artery without angina pectoris (6) DVT (deep venous thrombosis) Code(s): I82.409 - ACUTE EMBOLISM AND THOMBOS UNSP DEEP VN UNSP LOWER EXTREMITY (7) Diabetes mellitus Code(s): E11.9 - TYPE 2 DIABETES MELLITUS WITHOUT COMPLICATIONS Qualifiers: Diabetes mellitus type: type 2 Diabetes mellitus complication status: without complication Diabetes mellitus mcc insulin use: without mcc use Qualified Code(s): E11.9 - Type 2 diabetes mellitus without complications (8) H/O heart artery stent Code(s): Z95.5 - PRESENCE OF CORONARY ANGIOPLASTY IMPLANT AND GRAFT (9) Hypercholesteremia Code(s): E78.0 - PURE HYPERCHOLESTEROLEMIA * DO NOT USE * (10) Hypertension Code(s): I10 - ESSENTIAL (PRIMARY) HYPERTENSION Qualifiers: Hypertension type: essential hypertension Qualified Code(s): I10 - Essential (primary) hypertension (11) Hypothyroidism Code(s): E03.9 - HYPOTHYROIDISM, UNSPECIFIED Qualifiers: Hypothyroidism type: unspecified Qualified Code(s): E03.9 - Hypothyroidism, unspecified Assessment/Plan 1. Acute exacerbation of COPD with atypical post-tussive chest tightness 2. CAD post PCI/stent mildly abnormal MPI, angina pectoris 3. Diastolic LV dysfunction with chronic class I NYHA classification LV failure , compensated 4. PAF in sinus rhythm - [id number] score of 6 on NOAC 5. HTN/HCVD 6. DM 7. Hypercholesterolemia 8. Hypothyroidism 9. DVT/PE PLAN: 1. Continue bronchodilator, IV steroid taper, O2 as needed and empiric antibiotic course 2. Continue Toprol XL and Losartan 3. Continue Ranexa 4. Continue Imdur 5. Continue Lipitor 6. Continue Apixaban 5 mg bid with caution and close monitoring of CBC Further plans are to follow Tre Pascual MD
[2016-11-16] MEDS: LEVOFLOXACIN 500 MG TABLET (FP) PO SCH (06:22)
[2016-11-16] MEDS: glipiZIDE 5 MG TABLET (FP) PO SCH (06:22)
[2016-11-16] MEDS: LEVOTHYROXINE NA 25 MCG TABLET (FP) PO SCH (06:23)
[2016-11-16] MEDS: INSULIN SLIDING SCALE (NOVOLOG) 1 VIAL SQ SCH ×4 (06:23→22:58)
[2016-11-16 07:27] LABS: ALBUMIN 3.1 g/dl (3.4-5.0); BILIRUBIN,TOTAL 0.5 mg/dL (0.2-1.0); CALCIUM 8.6 mg/dL (8.5-10.1); COCKROFT - GAULT 57.4515; TOT PROT 6.7 g/dl (6.4-8.2)
[2016-11-16 08:30] LABS: BASOPHIL 0.2 % (0-2.0); EOSINOPHIL 0.2 % (0-4.5); MCH 31.3 pg (25.7-33.7); MCHC 33.5 g/dl (32.0-36.0); MEAN CELL VOLUME 93.5 fl (80-96); MEAN PLT VOLUME 9.9 fl (7.5-11.1); PLATELET COUNT 150 K/MM3 (134-434); RDW 13.8 % (11.6-15.6); WHITE BLOOD COUNT 6.4 K/mm3 (4.0-10.0)
--- NOTE | 2016-11-16 10:04 | PN ---
Progress Note, Physician Chief Complaint: OOB to chair no SOB had L CP earlier but not now; seen by cardio; c/o sneezing and seasonal allergies; claritin & flonase prn - Current Medication List Current Medications: Active Medications Acetaminophen (Tylenol -) 650 mg PO Q6H PRN PRN Reason: FEVER OR PAIN Last Admin: 11/15/16 08:34 Dose: 650 mg Aclidinium [place] (Tudorza -) 1 puff IH BID [facility] Last Admin: 11/16/16 10:36 Dose: 1 puff Albuterol Sulfate (Ventolin Hfa Inhaler -) 1 puff IH Q4H PRN PRN Reason: SHORT OF BREATH/WHEEZING Apixaban (Eliquis -) 5 mg PO BID [facility] Last Admin: 11/16/16 10:36 Dose: 5 mg Cholecalciferol (Vitamin D3 -) 4,000 unit PO DAILY [facility] Last Admin: 11/16/16 10:36 Dose: 4,000 unit Docusate Sodium (Colace -) 100 mg PO BID [facility] Last Admin: 11/16/16 10:36 Dose: 100 mg Glipizide (Glucotrol -) 2.5 mg PO DAILY@0700 [facility] Last Admin: 11/16/16 06:22 Dose: 2.5 mg Insulin Aspart (Novolog Vial Sliding Scale -) 1 vial SQ ACHS [facility] PRN Reason: Protocol Last Admin: 11/16/16 16:22 Dose: Not Given Isosorbide Mononitrate (Imdur -) 90 mg PO DAILY [facility] Last Admin: 11/16/16 10:36 Dose: 90 mg Lactulose (Cephulac (Oral Use)) 10 gm PO DAILY [facility] Last Admin: 11/16/16 10:35 Dose: 10 gm Levofloxacin (Levaquin -) 500 mg PO DAILY@0600 [facility] Last Admin: 11/16/16 06:22 Dose: 500 mg Levothyroxine Sodium (Synthroid -) 25 mcg PO DAILY@0700 [facility] Last Admin: 11/16/16 06:23 Dose: 25 mcg Losartan Potassium (Cozaar -) 50 mg PO DAILY [facility] Last Admin: 11/16/16 10:36 Dose: 50 mg Meclizine HCl (Antivert -) 12.5 mg PO Q8H PRN PRN Reason: VERTIGO Methylprednisolone Sodium Succinate (Solu-Medrol -) 20 mg IVPB Q12H [facility] Last Admin: 11/16/16 10:37 Dose: 20 mg Metoprolol Succinate (Toprol Xl -) 100 mg PO DAILY [facility] Last Admin: 11/16/16 10:36 Dose: 100 mg Pantoprazole Sodium (Protonix -) 20 mg PO DAILY [facility] Last Admin: 11/16/16 10:36 Dose: 20 mg Polyethylene Glycol (Miralax (For Daily Use) -) 17 gm PO DAILY PRN PRN Reason: CONSTIPATION Ranolazine (Ranexa -) 500 mg PO BID [facility] Last Admin: 11/16/16 10:36 Dose: 500 mg - Objective Vital Signs: Vital Signs Temperature 97.9 F 11/16/16 15:48 Pulse Rate 73 11/16/16 15:48 Respiratory Rate 18 11/16/16 15:48 Blood Pressure 94/58 11/16/16 15:48 O2 Sat by Pulse Oximetry (%) 97 11/16/16 09:00 Constitutional: Yes: No Distress Eyes: Yes: Conjunctiva Clear HENT: Yes: Atraumatic Neck: Yes: Supple Cardiovascular: Yes: Regular Rate and Rhythm Respiratory: Yes: CTA Bilaterally Gastrointestinal: Yes: Soft. No: Distention Genitourinary: No: CVA Tenderness - Left, CVA Tenderness - Right Musculoskeletal: No: Joint Stiffness, Joint Swelling Extremities: No: Cold, Cool Edema: No Integumentary: No: Rash, Venous Stasis Changes Neurological: Yes: WNL, Alert, Oriented ...Motor Strength: WNL Psychiatric: Yes: WNL, Alert, Oriented. No: Agitated, Suicidal Ideation Labs: CBC, BMP 11/16/16 05:35 11/16/16 05:35 - ....Imaging Other: Report Reviewed <Liyah Wang S - Last Filed: 11/16/16 17:24> Chief Complaint: Events noted Complains of back pain, cough productive and SOB intermittently History of Present Illness: Patient was seen and examined. Awake and alert. Chart was reviewed. Denies chest pain or palpitations. Complains of cough intermittent, less SOB - Current Medication List Current Medications: Active Medications Acetaminophen (Tylenol -) 650 mg PO Q6H PRN PRN Reason: FEVER OR PAIN Last Admin: 11/15/16 08:34 Dose: 650 mg Aclidinium [place] (Tudorza -) 1 puff IH BID [facility] Last Admin: 11/15/16 21:08 Dose: 1 puff Albuterol Sulfate (Ventolin Hfa Inhaler -) 1 puff IH Q4H PRN PRN Reason: SHORT OF BREATH/WHEEZING Apixaban (Eliquis -) 5 mg PO BID [facility] Last Admin: 11/15/16 21:08 Dose: 5 mg Cholecalciferol (Vitamin D3 -) 4,000 unit PO DAILY [facility] Last Admin: 11/15/16 10:23 Dose: 4,000 unit Docusate Sodium (Colace -) 100 mg PO BID [facility] Last Admin: 11/15/16 21:08 Dose: 100 mg Glipizide (Glucotrol -) 2.5 mg PO DAILY@0700 [facility] Last Admin: 11/16/16 06:22 Dose: 2.5 mg Insulin Aspart (Novolog Vial Sliding Scale -) 1 vial SQ ACHS [facility] PRN Reason: Protocol Last Admin: 11/16/16 06:23 Dose: 4 units Isosorbide Mononitrate (Imdur -) 90 mg PO DAILY [facility] Last Admin: 11/15/16 10:27 Dose: 90 mg Lactulose (Cephulac (Oral Use)) 10 gm PO DAILY [facility] Last Admin: 11/15/16 10:27 Dose: 10 gm Levofloxacin (Levaquin -) 500 mg PO DAILY@0600 [facility] Last Admin: 11/16/16 06:22 Dose: 500 mg Levothyroxine Sodium (Synthroid -) 25 mcg PO DAILY@0700 [facility] Last Admin: 11/16/16 06:23 Dose: 25 mcg Losartan Potassium (Cozaar -) 50 mg PO DAILY [facility] Last Admin: 11/15/16 10:23 Dose: 50 mg Meclizine HCl (Antivert -) 12.5 mg PO Q8H PRN PRN Reason: VERTIGO Methylprednisolone Sodium Succinate (Solu-Medrol -) 20 mg IVPB Q12H [facility] Last Admin: 11/15/16 22:44 Dose: 20 mg Metoprolol Succinate (Toprol Xl -) 100 mg PO DAILY [facility] Last Admin: 11/15/16 10:27 Dose: 100 mg Pantoprazole Sodium (Protonix -) 20 mg PO DAILY [facility] Last Admin: 11/15/16 10:23 Dose: 20 mg Polyethylene Glycol (Miralax (For Daily Use) -) 17 gm PO DAILY PRN PRN Reason: CONSTIPATION Ranolazine (Ranexa -) 500 mg PO BID [facility] Last Admin: 11/15/16 21:08 Dose: 500 mg - Objective Vital Signs: Vital Signs Temperature 98.4 F 11/16/16 02:33 Pulse Rate 72 11/16/16 02:33 Respiratory Rate 18 11/16/16 02:33 Blood Pressure 149/69 11/16/16 02:33 O2 Sat by Pulse Oximetry (%) 95 11/15/16 20:47 HENT: Yes: Atraumatic Neck: Yes: Supple Cardiovascular: Yes: Regular Rate and Rhythm, S1, S2. No: Murmur Respiratory: Yes: Diminished Gastrointestinal: Yes: Normal Bowel Sounds, Soft. No: Tenderness Edema: No Additional Findings/Remarks: - Review of Systems Cardiovascular: Denies: Chest Pain. denies: Palpitations, (+) Shortness of Breath Respiratory: Reports: Cough, denies: Hemoptysis, Orthopnea, PND, (+) SOB, SOB on Exertion Gastrointestinal: denies: Abdominal Pain, Constipation, Diarrhea, Melena, Nausea , Rectal Bleeding, Vomiting Neurological: denies: Dizziness, Headache, Seizure, Syncope Labs: CBC, BMP 11/16/16 05:35 11/16/16 05:35 <Tre Pascual - Last Filed: 11/17/16 15:53> Problem List - Problems (1) Bronchitis, asthmatic Code(s): J45.909 - UNSPECIFIED ASTHMA, UNCOMPLICATED Qualifiers: Asthma severity: unspecified severity Asthma complication type: uncomplicated Qualified Code(s): J45.909 - Unspecified asthma, uncomplicated (2) COPD (chronic obstructive pulmonary disease) with acute bronchitis Code(s): J44.0 - CHRONIC OBSTRUCTIVE PULMON DISEASE W ACUTE LOWER RESP INFCT (3) Diastolic dysfunction Code(s): I51.9 - HEART DISEASE, UNSPECIFIED (4) A-fib Code(s): I48.91 - UNSPECIFIED ATRIAL FIBRILLATION Qualifiers: Atrial fibrillation type: paroxysmal Qualified Code(s): I48.0 - Paroxysmal atrial fibrillation (5) CAD (coronary artery disease) Code(s): I25.10 - ATHSCL HEART DISEASE OF [place] CORONARY ARTERY W/O ANG PCTRS Qualifiers: Coronary Disease-Associated Artery/Lesion type: [place] artery [place] vs. transplanted heart: [place] heart Associated angina: without angina Qualified Code(s): I25.10 - Atherosclerotic heart disease of [place] coronary artery without angina pectoris (6) DVT (deep venous thrombosis) Code(s): I82.409 - ACUTE EMBOLISM AND [place]BOS UNSP DEEP VN UNSP LOWER EXTREMITY (7) Diabetes mellitus Code(s): E11.9 - TYPE 2 DIABETES MELLITUS WITHOUT COMPLICATIONS Qualifiers: Diabetes mellitus type: type 2 Diabetes mellitus complication status: without complication Diabetes mellitus custodial insulin use: without rat exterminator use Qualified Code(s): E11.9 - Type 2 diabetes mellitus without complications (8) H/O heart artery stent Code(s): Z95.5 - PRESENCE OF CORONARY ANGIOPLASTY IMPLANT AND GRAFT (9) Hypercholesteremia Code(s): E78.0 - PURE HYPERCHOLESTEROLEMIA * DO NOT USE * (10) Hypertension Code(s): I10 - ESSENTIAL (PRIMARY) HYPERTENSION Qualifiers: Hypertension type: essential hypertension Qualified Code(s): I10 - Essential (primary) hypertension (11) Hypothyroidism Code(s): E03.9 - HYPOTHYROIDISM, UNSPECIFIED Qualifiers: Hypothyroidism type: unspecified Qualified Code(s): E03.9 - Hypothyroidism, unspecified <Tre Pascual - Last Filed: 11/17/16 15:53> Assessment/Plan 1. Acute exacerbation of COPD with atypical post-tussive chest tightness 2. CAD post PCI/stent mildly abnormal MPI, angina pectoris 3. Diastolic LV dysfunction with chronic class I NYHA classification LV failure , compensated 4. PAF in sinus rhythm - [id number] score of 6 on NOAC 5. HTN/HCVD 6. DM 7. Hypercholesterolemia 8. Hypothyroidism 9. DVT/PE PLAN: 1. Continue bronchodilator, IV steroid taper, O2 as needed and empiric antibiotic course 2. Continue Toprol XL and Losartan 3. Continue Ranexa 4. Continue Imdur 5. Continue Lipitor 6. Continue Apixaban 5 mg bid with caution and close monitoring of CBC Further plans are to follow. Continue present therapy Tre Pascual MD <Tre Pascual - Last Filed: 11/17/16 15:53>
[2016-11-16] MEDS: LACTULOSE 20 GM/30 ML UDC (FOR ORAL USE ONLY) PO SCH (10:35)
[2016-11-16] MEDS: DOCUSATE SODIUM 100 MG CAPSULE (FP) PO SCH ×2 (10:36→22:58)
[2016-11-16] MEDS: METOPROLOL SUCCINATE 100 MG TAB.SR.24H (FP) PO SCH (10:36)
[2016-11-16] MEDS: CHOLECALCIFEROL (VITAMIN D3) 1,000 UNIT TABLET (FP) PO SCH (10:36)
[2016-11-16] MEDS: ACLIDINIUM BROMIDE 400 MCG/INH AERO.POWD IH SCH (10:36)
[2016-11-16] MEDS: PANTOPRAZOLE 20 MG TABLET (FP) PO SCH (10:36)
[2016-11-16] MEDS: LOSARTAN POTASSIUM 50 MG TABLET (FP) PO SCH (10:36)
[2016-11-16] MEDS: RANOLAZINE E.R. 500 MG TABLET (FP) PO SCH ×2 (10:36→22:58)
[2016-11-16] MEDS: APIXABAN 5 MG TABLET PO SCH ×2 (10:36→22:58)
[2016-11-16] MEDS: ISOSORBIDE MONONITRATE 30 MG TAB.SR.24H (FP) PO SCH (10:36)
[2016-11-16] MEDS: methylPREDNISolone NA SUCC 40 MG/1 ML VIAL IVPB SCH ×2 (10:37→22:59)
[2016-11-16] MEDS ORDERED: INSULIN (NOVOLOG) ASPART 100 UNITS/ML 10ML VIAL ONE (12:39)
--- NOTE | 2016-11-16 12:52 | PN ---
Progress Note, Physician - Current Medication List Current Medications: Active Medications Acetaminophen (Tylenol -) 650 mg PO Q6H PRN PRN Reason: FEVER OR PAIN Last Admin: 11/15/16 08:34 Dose: 650 mg Aclidinium [place] (Tudorza -) 1 puff IH BID [facility] Last Admin: 11/16/16 10:36 Dose: 1 puff Albuterol Sulfate (Ventolin Hfa Inhaler -) 1 puff IH Q4H PRN PRN Reason: SHORT OF BREATH/WHEEZING Apixaban (Eliquis -) 5 mg PO BID [facility] Last Admin: 11/16/16 10:36 Dose: 5 mg Cholecalciferol (Vitamin D3 -) 4,000 unit PO DAILY [facility] Last Admin: 11/16/16 10:36 Dose: 4,000 unit Docusate Sodium (Colace -) 100 mg PO BID [facility] Last Admin: 11/16/16 10:36 Dose: 100 mg Glipizide (Glucotrol -) 2.5 mg PO DAILY@0700 [facility] Last Admin: 11/16/16 06:22 Dose: 2.5 mg Insulin Aspart (Novolog Vial Sliding Scale -) 1 vial SQ ACHS [facility] PRN Reason: Protocol Last Admin: 11/16/16 12:43 Dose: 6 units Isosorbide Mononitrate (Imdur -) 90 mg PO DAILY [facility] Last Admin: 11/16/16 10:36 Dose: 90 mg Lactulose (Cephulac (Oral Use)) 10 gm PO DAILY [facility] Last Admin: 11/16/16 10:35 Dose: 10 gm Levofloxacin (Levaquin -) 500 mg PO DAILY@0600 [facility] Last Admin: 11/16/16 06:22 Dose: 500 mg Levothyroxine Sodium (Synthroid -) 25 mcg PO DAILY@0700 [facility] Last Admin: 11/16/16 06:23 Dose: 25 mcg Losartan Potassium (Cozaar -) 50 mg PO DAILY [facility] Last Admin: 11/16/16 10:36 Dose: 50 mg Meclizine HCl (Antivert -) 12.5 mg PO Q8H PRN PRN Reason: VERTIGO Methylprednisolone Sodium Succinate (Solu-Medrol -) 20 mg IVPB Q12H [facility] Last Admin: 11/16/16 10:37 Dose: 20 mg Metoprolol Succinate (Toprol Xl -) 100 mg PO DAILY [facility] Last Admin: 11/16/16 10:36 Dose: 100 mg Pantoprazole Sodium (Protonix -) 20 mg PO DAILY [facility] Last Admin: 11/16/16 10:36 Dose: 20 mg Polyethylene Glycol (Miralax (For Daily Use) -) 17 gm PO DAILY PRN PRN Reason: CONSTIPATION Ranolazine (Ranexa -) 500 mg PO BID [facility] Last Admin: 11/16/16 10:36 Dose: 500 mg - Objective Vital Signs: Vital Signs Temperature 98.4 F 11/16/16 02:33 Pulse Rate 72 11/16/16 02:33 Respiratory Rate 18 11/16/16 09:00 Blood Pressure 149/69 11/16/16 02:33 O2 Sat by Pulse Oximetry (%) 97 11/16/16 09:00 Labs: CBC, BMP 11/16/16 05:35 11/16/16 05:35 Assessment/Plan Patient is an 81 year old female from [facility] with significant medical hx of asthma/COPD, spinal stenosis, hypothyroidism, AFib, DM, GERD, HTN, HLD, vertigo , CAD s/p multivessel stents, diastolic dysfunction, hypothyroidism, GERD, prior PE and DVT, presented to the ED from [place] with productive cough with yellow phlegm, dyspnea, wheeze and chest tightness for 2 days without fevers or chills, reports improvement with inh therapy. Also CP, weakness, presyncope. admitted to telemetry [facility] and cardiology f/u INH, antibiotics and iv steroids low dose - taper close f/u falls decubs DVT gastric and aspiration pfx pt advised do not get OOB alone d/w pt and staff BGM f/u while on steroids claritin, flonase prn DC planning to [place] in am if stable and cleared by cardiology
[2016-11-16] MEDS ORDERED: LORATADINE 10 MG TABLET PO PRN (17:26)
[2016-11-16] MEDS ORDERED: FLUTICASONE PROP 0.05% 16 GM NASAL SPRAY NS PRN (17:26)
[2016-11-16] MEDS ORDERED: guaiFENesin/D-M SUGAR-FREE/ACLHOL-FREE 118 ML BOTTLE PO PRN (22:55)
[2016-11-17] MEDS: ACLIDINIUM BROMIDE 400 MCG/INH AERO.POWD IH SCH ×3 (00:31→21:43)
[2016-11-17] MEDS: glipiZIDE 5 MG TABLET (FP) PO SCH (06:02)
[2016-11-17] MEDS: LEVOTHYROXINE NA 25 MCG TABLET (FP) PO SCH (06:02)
[2016-11-17] MEDS: INSULIN SLIDING SCALE (NOVOLOG) 1 VIAL SQ SCH ×4 (06:02→21:41)
[2016-11-17] MEDS: LEVOFLOXACIN 500 MG TABLET (FP) PO SCH (06:03)
[2016-11-17] MEDS: APIXABAN 5 MG TABLET PO SCH ×2 (10:07→21:41)
[2016-11-17] MEDS: LACTULOSE 20 GM/30 ML UDC (FOR ORAL USE ONLY) PO SCH (10:07)
[2016-11-17] MEDS: LOSARTAN POTASSIUM 50 MG TABLET (FP) PO SCH (10:07)
[2016-11-17] MEDS: PANTOPRAZOLE 20 MG TABLET (FP) PO SCH (10:07)
[2016-11-17] MEDS: RANOLAZINE E.R. 500 MG TABLET (FP) PO SCH ×2 (10:07→21:41)
[2016-11-17] MEDS: DOCUSATE SODIUM 100 MG CAPSULE (FP) PO SCH ×2 (10:07→21:41)
[2016-11-17] MEDS: METOPROLOL SUCCINATE 100 MG TAB.SR.24H (FP) PO SCH (10:08)
[2016-11-17] MEDS: ISOSORBIDE MONONITRATE 30 MG TAB.SR.24H (FP) PO SCH (10:08)
[2016-11-17] MEDS: CHOLECALCIFEROL (VITAMIN D3) 1,000 UNIT TABLET (FP) PO SCH (10:08)
--- NOTE | 2016-11-17 10:30 | PN ---
Progress Note, Physician Chief Complaint: Events noted Complains of back pain, cough productive and SOB intermittently Depressed History of Present Illness: Patient was seen and examined. Awake and alert. Chart was reviewed. Denies chest pain or palpitations. Complains of cough intermittent, less SOB - Current Medication List Current Medications: Active Medications Acetaminophen (Tylenol -) 650 mg PO Q6H PRN PRN Reason: FEVER OR PAIN Last Admin: 11/15/16 08:34 Dose: 650 mg Aclidinium [place] (Tudorza -) 1 puff IH BID [facility] Last Admin: 11/17/16 10:08 Dose: 1 puff Albuterol Sulfate (Ventolin Hfa Inhaler -) 1 puff IH Q4H PRN PRN Reason: SHORT OF BREATH/WHEEZING Last Admin: 11/17/16 10:07 Dose: 1 puff Apixaban (Eliquis -) 5 mg PO BID [facility] Last Admin: 11/17/16 10:07 Dose: 5 mg Cholecalciferol (Vitamin D3 -) 4,000 unit PO DAILY [facility] Last Admin: 11/17/16 10:08 Dose: 4,000 unit Docusate Sodium (Colace -) 100 mg PO BID [facility] Last Admin: 11/17/16 10:07 Dose: 100 mg Fluticasone Propionate (Flonase -) 1 spray NS BID PRN PRN Reason: NASAL CONGESTION/ALLERGIES Glipizide (Glucotrol -) 2.5 mg PO DAILY@0700 [facility] Last Admin: 11/17/16 06:02 Dose: 2.5 mg Guaifenesin (Diabetic Tussin Dm -) 10 ml PO Q6H PRN PRN Reason: COUGH Insulin Aspart (Novolog Vial Sliding Scale -) 1 vial SQ ACHS [facility] PRN Reason: Protocol Last Admin: 11/17/16 06:02 Dose: 2 units Isosorbide Mononitrate (Imdur -) 90 mg PO DAILY [facility] Last Admin: 11/17/16 10:08 Dose: 90 mg Lactulose (Cephulac (Oral Use)) 10 gm PO DAILY [facility] Last Admin: 11/17/16 10:07 Dose: 10 gm Levofloxacin (Levaquin -) 500 mg PO DAILY@0600 [facility] Last Admin: 11/17/16 06:03 Dose: 500 mg Levothyroxine Sodium (Synthroid -) 25 mcg PO DAILY@0700 [facility] Last Admin: 11/17/16 06:02 Dose: 25 mcg Loratadine (Claritin -) 10 mg PO DAILY PRN PRN Reason: COUGH/ALLERGIES Losartan Potassium (Cozaar -) 50 mg PO DAILY [facility] Last Admin: 11/17/16 10:07 Dose: 50 mg Meclizine HCl (Antivert -) 12.5 mg PO Q8H PRN PRN Reason: VERTIGO Methylprednisolone Sodium Succinate (Solu-Medrol -) 20 mg IVPB Q12H [facility] Last Admin: 11/16/16 22:59 Dose: 20 mg Metoprolol Succinate (Toprol Xl -) 100 mg PO DAILY [facility] Last Admin: 11/17/16 10:08 Dose: 100 mg Pantoprazole Sodium (Protonix -) 20 mg PO DAILY [facility] Last Admin: 11/17/16 10:07 Dose: 20 mg Polyethylene Glycol (Miralax (For Daily Use) -) 17 gm PO DAILY PRN PRN Reason: CONSTIPATION Ranolazine (Ranexa -) 500 mg PO BID [facility] Last Admin: 11/17/16 10:07 Dose: 500 mg - Objective Vital Signs: Vital Signs Temperature 98.2 F 11/17/16 10:00 Pulse Rate 62 11/17/16 10:00 Respiratory Rate 16 11/17/16 10:00 Blood Pressure 150/74 11/17/16 10:00 O2 Sat by Pulse Oximetry (%) 97 11/16/16 20:09 Neck: Yes: Supple Cardiovascular: Yes: Regular Rate and Rhythm, S1, S2 Respiratory: Yes: Diminished Gastrointestinal: Yes: Normal Bowel Sounds, Soft, Abdomen, Obese. No: Tenderness Edema: No Additional Findings/Remarks: - Review of Systems Cardiovascular: Denies: Chest Pain. denies: Palpitations, (+) Shortness of Breath Respiratory: Reports: Cough, denies: Hemoptysis, Orthopnea, PND, (+) SOB, SOB on Exertion Gastrointestinal: denies: Abdominal Pain, Constipation, Diarrhea, Melena, Nausea , Rectal Bleeding, Vomiting Neurological: denies: Dizziness, Headache, Seizure, Syncope Labs: CBC, BMP 11/16/16 05:35 11/16/16 05:35 Problem List - Problems (1) Bronchitis, asthmatic Code(s): J45.909 - UNSPECIFIED ASTHMA, UNCOMPLICATED Qualifiers: Asthma severity: unspecified severity Asthma complication type: uncomplicated Qualified Code(s): J45.909 - Unspecified asthma, uncomplicated (2) COPD (chronic obstructive pulmonary disease) with acute bronchitis Code(s): J44.0 - CHRONIC OBSTRUCTIVE PULMON DISEASE W ACUTE LOWER RESP INFCT (3) Diastolic dysfunction Code(s): I51.9 - HEART DISEASE, UNSPECIFIED (4) A-fib Code(s): I48.91 - UNSPECIFIED ATRIAL FIBRILLATION Qualifiers: Atrial fibrillation type: paroxysmal Qualified Code(s): I48.0 - Paroxysmal atrial fibrillation (5) CAD (coronary artery disease) Code(s): I25.10 - ATHSCL HEART DISEASE OF [place] CORONARY ARTERY W/O ANG PCTRS Qualifiers: Coronary Disease-Associated Artery/Lesion type: [place] artery [place] vs. transplanted heart: [place] heart Associated angina: without angina Qualified Code(s): I25.10 - Atherosclerotic heart disease of [place] coronary artery without angina pectoris (6) DVT (deep venous thrombosis) Code(s): I82.409 - ACUTE EMBOLISM AND THOMBOS UNSP DEEP VN UNSP LOWER EXTREMITY (7) Diabetes mellitus Code(s): E11.9 - TYPE 2 DIABETES MELLITUS WITHOUT COMPLICATIONS Qualifiers: Diabetes mellitus type: type 2 Diabetes mellitus complication status: without complication Diabetes mellitus correction insulin use: without correction use Qualified Code(s): E11.9 - Type 2 diabetes mellitus without complications (8) H/O heart artery stent Code(s): Z95.5 - PRESENCE OF CORONARY ANGIOPLASTY IMPLANT AND GRAFT (9) Hypercholesteremia Code(s): E78.0 - PURE HYPERCHOLESTEROLEMIA * DO NOT USE * (10) Hypertension Code(s): I10 - ESSENTIAL (PRIMARY) HYPERTENSION Qualifiers: Hypertension type: essential hypertension Qualified Code(s): I10 - Essential (primary) hypertension (11) Hypothyroidism Code(s): E03.9 - HYPOTHYROIDISM, UNSPECIFIED Qualifiers: Hypothyroidism type: unspecified Qualified Code(s): E03.9 - Hypothyroidism, unspecified Assessment/Plan 1. Acute exacerbation of COPD with atypical post-tussive chest tightness 2. CAD post PCI/stent mildly abnormal MPI, angina pectoris 3. Diastolic LV dysfunction with chronic class I NYHA classification LV failure , compensated 4. PAF in sinus rhythm - [id number] score of 6 on NOAC 5. HTN/HCVD 6. DM 7. Hypercholesterolemia 8. Hypothyroidism 9. DVT/PE PLAN: 1. Continue bronchodilator, IV steroid taper, O2 as needed and empiric antibiotic course 2. Continue Toprol XL and Losartan 3. Continue Ranexa 4. Continue Imdur 5. Continue Lipitor 6. Continue Apixaban with caution and close monitoring of CBC Continue present therapy Tre Pascual MD
[2016-11-17] MEDS: methylPREDNISolone NA SUCC 40 MG/1 ML VIAL IVPB SCH ×2 (12:02→23:06)
--- NOTE | 2016-11-17 15:43 | PN ---
Progress Note, Physician Chief Complaint: no SOB but still has occasional sharp L CP seen by cardiology O2 sat/RA >90%, no cough no wheezing, no GERD no N/V/abdominal pain, ate OK - Current Medication List Current Medications: Active Medications Acetaminophen (Tylenol -) 650 mg PO Q6H PRN PRN Reason: FEVER OR PAIN Last Admin: 11/15/16 08:34 Dose: 650 mg Aclidinium [place] (Tudorza -) 1 puff IH BID [facility] Last Admin: 11/17/16 10:08 Dose: 1 puff Albuterol Sulfate (Ventolin Hfa Inhaler -) 1 puff IH Q4H PRN PRN Reason: SHORT OF BREATH/WHEEZING Last Admin: 11/17/16 10:07 Dose: 1 puff Apixaban (Eliquis -) 5 mg PO BID [facility] Last Admin: 11/17/16 10:07 Dose: 5 mg Cholecalciferol (Vitamin D3 -) 4,000 unit PO DAILY [facility] Last Admin: 11/17/16 10:08 Dose: 4,000 unit Docusate Sodium (Colace -) 100 mg PO BID [facility] Last Admin: 11/17/16 10:07 Dose: 100 mg Fluticasone Propionate (Flonase -) 1 spray NS BID PRN PRN Reason: NASAL CONGESTION/ALLERGIES Glipizide (Glucotrol -) 2.5 mg PO DAILY@0700 [facility] Last Admin: 11/17/16 06:02 Dose: 2.5 mg Guaifenesin (Diabetic Tussin Dm -) 10 ml PO Q6H PRN PRN Reason: COUGH Insulin Aspart (Novolog Vial Sliding Scale -) 1 vial SQ ACHS [facility] PRN Reason: Protocol Last Admin: 11/17/16 12:04 Dose: 2 units Isosorbide Mononitrate (Imdur -) 90 mg PO DAILY [facility] Last Admin: 11/17/16 10:08 Dose: 90 mg Lactulose (Cephulac (Oral Use)) 10 gm PO DAILY [facility] Last Admin: 11/17/16 10:07 Dose: 10 gm Levofloxacin (Levaquin -) 500 mg PO DAILY@0600 [facility] Last Admin: 11/17/16 06:03 Dose: 500 mg Levothyroxine Sodium (Synthroid -) 25 mcg PO DAILY@0700 [facility] Last Admin: 11/17/16 06:02 Dose: 25 mcg Loratadine (Claritin -) 10 mg PO DAILY PRN PRN Reason: COUGH/ALLERGIES Losartan Potassium (Cozaar -) 50 mg PO DAILY [facility] Last Admin: 11/17/16 10:07 Dose: 50 mg Meclizine HCl (Antivert -) 12.5 mg PO Q8H PRN PRN Reason: VERTIGO Methylprednisolone Sodium Succinate (Solu-Medrol -) 20 mg IVPB Q12H [facility] Last Admin: 11/17/16 12:02 Dose: Not Given Metoprolol Succinate (Toprol Xl -) 100 mg PO DAILY [facility] Last Admin: 11/17/16 10:08 Dose: 100 mg Pantoprazole Sodium (Protonix -) 20 mg PO DAILY [facility] Last Admin: 11/17/16 10:07 Dose: 20 mg Polyethylene Glycol (Miralax (For Daily Use) -) 17 gm PO DAILY PRN PRN Reason: CONSTIPATION Ranolazine (Ranexa -) 500 mg PO BID [facility] Last Admin: 11/17/16 10:07 Dose: 500 mg - Objective Vital Signs: Vital Signs Temperature 98.2 F 11/17/16 10:00 Pulse Rate 62 11/17/16 10:00 Respiratory Rate 16 11/17/16 10:00 Blood Pressure 150/74 11/17/16 10:00 O2 Sat by Pulse Oximetry (%) 95 11/17/16 09:00 Constitutional: Yes: No Distress, Calm Eyes: Yes: Conjunctiva Clear HENT: Yes: Atraumatic Neck: Yes: Supple Cardiovascular: Yes: Regular Rate and Rhythm Respiratory: Yes: CTA Bilaterally Gastrointestinal: Yes: Soft. No: Distention, Tenderness Genitourinary: No: CVA Tenderness - Left, CVA Tenderness - Right Musculoskeletal: No: Joint Stiffness, Joint Swelling Extremities: No: Cold, Cool Edema: No Peripheral Pulses WNL: Yes Integumentary: No: Rash, Venous Stasis Changes Neurological: Yes: WNL, Alert, Oriented ...Motor Strength: WNL Psychiatric: Yes: WNL, Alert, Oriented. No: Agitated, Suicidal Ideation Labs: CBC, BMP 11/16/16 05:35 11/16/16 05:35 - ....Imaging Other: Report Reviewed Assessment/Plan Patient is an 81 year old female from [facility] with significant medical hx of asthma/COPD, spinal stenosis, hypothyroidism, AFib, DM, GERD, HTN, HLD, vertigo , CAD s/p multivessel stents, diastolic dysfunction, hypothyroidism, GERD, prior PE and DVT, presented to the ED [place] with productive cough with yellow phlegm, dyspnea, wheeze and chest tightness for 2 days without fevers or chills, reports improvement with inh therapy. Also CP, weakness, presyncope. admitted to telemetry CE and cardiology f/u INH, antibiotics and iv steroids low dose - taper pleuritic L CP will check chest CT no ivs r/o PNA/mass falls decubs DVT gastric and aspiration pfx pt advised do not get OOB alone d/w pt and staff BGM f/u while on steroids claritin, flonase prn DC planning to [place] in am if stable and cleared by cardiology
[2016-11-18] MEDS: LEVOFLOXACIN 500 MG TABLET (FP) PO SCH (06:52)
[2016-11-18] MEDS: INSULIN SLIDING SCALE (NOVOLOG) 1 VIAL SQ SCH ×3 (06:52→16:34)
[2016-11-18] MEDS: glipiZIDE 5 MG TABLET (FP) PO SCH (06:52)
[2016-11-18] MEDS: LEVOTHYROXINE NA 25 MCG TABLET (FP) PO SCH (06:52)
[2016-11-18 07:07] VITALS: BP 144/58; PULSE 64; TEMP 98.6
--- NOTE | 2016-11-18 09:31 | DS ---
Physical Examination Vital Signs: Vital Signs Temperature 98.6 F 11/18/16 07:00 Pulse Rate 64 11/18/16 07:00 Respiratory Rate 20 11/18/16 07:00 Blood Pressure 144/58 11/18/16 07:00 O2 Sat by Pulse Oximetry (%) 92 L 11/17/16 21:00 Findings/Remarks: chest CT no acute changes pt in bed feels better no more CP; no SOB no cough no N/V/C/D/ abdominal pain spoke with HCP Keya at bedside Constitutional: Yes: No Distress, Calm Eyes: Yes: Conjunctiva Clear HENT: Yes: Atraumatic Neck: Yes: Supple Cardiovascular: Yes: Regular Rate and Rhythm Respiratory: Yes: CTA Bilaterally Gastrointestinal: Yes: Soft. No: Distention, Tenderness Renal/: No: CVA Tenderness - Left, CVA Tenderness - Right Musculoskeletal: No: Joint Stiffness, Joint Swelling Extremities: No: Cold, Cool Edema: No Integumentary: No: Rash, Venous Stasis Changes Neurological: Yes: WNL, Alert, Oriented ...Motor Strength: WNL Psychiatric: Yes: WNL, Alert, Oriented. No: Agitated, Suicidal Ideation Labs: CBC, BMP 11/16/16 05:35 11/16/16 05:35 Discharge Summary Reason For Visit: ACUTE WITH CHRONIC OBSTRUCTIVE PULMONARY DISEASE Current Active Problems Bronchitis, asthmatic (Acute) COPD (chronic obstructive pulmonary disease) with acute bronchitis (Acute) Diastolic dysfunction (Acute) Diastolic dysfunction without heart failure (Acute) Vertigo (Acute) Procedures: Principal: admitted with CP/SOB and presyncope;. wheezing; cough; COPD exac and URI Other Procedures: telemetry, XANDER, cardiology eval;. IV steroids and IV ATB, INH; Hospital Course: improved with above; transfer back to [place]; pt does not want po prednisone, said she is "allergic" to it. Condition: Improved - Instructions Diet, Activity, Other Instructions: f/u PCP in [place] falls PFX PT rehab RTER if worse or recurrent c/o Referrals: Liyah Wang [Primary Care Provider] - Disposition: [facility]ILITY - Home Medications Comprehensive Discharge Medication List: Ambulatory Orders Acetaminophen [Tylenol .Regular Strength -] 650 mg PO Q6H PRN #120 tablet Apixaban [Eliquis -] 5 mg PO BID #180 tablet 04/27/16 Isosorbide Mononitrate [Imdur -] 60 mg PO DAILY #90 tab.sr.24h 04/27/16 Levothyroxine [Synthroid -] 50 mcg PO DAILY@0700 #90 tablet 04/27/16 Meclizine HCl [Antivert -] 12.5 mg PO Q8H PRN #90 tablet 04/27/16 Metoprolol Succinate [Toprol XL -] 100 mg PO DAILY #90 tab.sr.24h 04/27/16 Polyethylene Glycol 3350 [Miralax 119 gm Btl -] 17 gm PO DAILY PRN #90 bottle Ranitidine HCl [Zantac] 150 mg PO HS PRN #90 tablet 04/27/16 Ranolazine [Ranexa] 500 mg PO BID #180 tab.er.12h 04/27/16 Cholecalciferol (Vitamin D3) [Vitamin D3 -] 4,000 unit PO DAILY 05/31/16 Docusate Sodium [Colace -] 100 mg PO BID 05/31/16 Albuterol Sulfate Inhaler - [Ventolin HFA Inhaler -] 1 inh PO Q4H PRN 08/19/16 Glipizide [Glucotrol -] 2.5 mg PO DAILY 08/19/16 Losartan Potassium [Cozaar -] 50 mg PO DAILY tablet 08/28/16 Insulin Lispro [Humalog] 0 unit SQ AM 10/30/16 Lactulose 10 gm PO DAILY 11/12/16 Tiotropium [place] [Spiriva] 18 mcg IH DAILY 11/12/16 Fluticasone Prop 0.05% Nasal [Flonase -] 1 spray NS BID PRN #0 spray 11/16/16 Insulin Sliding Scale [Novolog Vial Sliding Scale -] 1 vial SQ ACHS units 11/16 Guaifenesin/D-Methorphan Hb [Diabetic Tussin Dm -] 10 ml PO Q6H PRN #0 ml Loratadine [Claritin -] 10 mg PO DAILY PRN #0 tablet 11/18/16
--- NOTE | 2016-11-18 09:54 | PN ---
Progress Note, Physician Chief Complaint: Events noted Cough productive and SOB intermittently, but better History of Present Illness: Patient was seen and examined. Awake and alert. Chart was reviewed. Denies chest pain or palpitations. Complains of cough intermittent, less SOB Await transfer to SNF - Current Medication List Current Medications: Active Medications Acetaminophen (Tylenol -) 650 mg PO Q6H PRN PRN Reason: FEVER OR PAIN Last Admin: 11/15/16 08:34 Dose: 650 mg Aclidinium [place] (Tudorza -) 1 puff IH BID [facility] Last Admin: 11/17/16 21:43 Dose: Not Given Albuterol Sulfate (Ventolin Hfa Inhaler -) 1 puff IH Q4H PRN PRN Reason: SHORT OF BREATH/WHEEZING Last Admin: 11/17/16 10:07 Dose: 1 puff Apixaban (Eliquis -) 5 mg PO BID [facility] Last Admin: 11/17/16 21:41 Dose: 5 mg Cholecalciferol (Vitamin D3 -) 4,000 unit PO DAILY [facility] Last Admin: 11/17/16 10:08 Dose: 4,000 unit Docusate Sodium (Colace -) 100 mg PO BID [facility] Last Admin: 11/17/16 21:41 Dose: 100 mg Fluticasone Propionate (Flonase -) 1 spray NS BID PRN PRN Reason: NASAL CONGESTION/ALLERGIES Glipizide (Glucotrol -) 2.5 mg PO DAILY@0700 [facility] Last Admin: 11/18/16 06:52 Dose: 2.5 mg Guaifenesin (Diabetic Tussin Dm -) 10 ml PO Q6H PRN PRN Reason: COUGH Insulin Aspart (Novolog Vial Sliding Scale -) 1 vial SQ ACHS [facility] PRN Reason: Protocol Last Admin: 11/18/16 06:52 Dose: 4 units Isosorbide Mononitrate (Imdur -) 90 mg PO DAILY [facility] Last Admin: 11/17/16 10:08 Dose: 90 mg Lactulose (Cephulac (Oral Use)) 10 gm PO DAILY [facility] Last Admin: 11/17/16 10:07 Dose: 10 gm Levofloxacin (Levaquin -) 500 mg PO DAILY@0600 [facility] Last Admin: 11/18/16 06:52 Dose: 500 mg Levothyroxine Sodium (Synthroid -) 25 mcg PO DAILY@0700 [facility] Last Admin: 11/18/16 06:52 Dose: 25 mcg Loratadine (Claritin -) 10 mg PO DAILY PRN PRN Reason: COUGH/ALLERGIES Losartan Potassium (Cozaar -) 50 mg PO DAILY [facility] Last Admin: 11/17/16 10:07 Dose: 50 mg Meclizine HCl (Antivert -) 12.5 mg PO Q8H PRN PRN Reason: VERTIGO Methylprednisolone Sodium Succinate (Solu-Medrol -) 20 mg IVPB Q12H [facility] Last Admin: 11/17/16 23:06 Dose: Not Given Metoprolol Succinate (Toprol Xl -) 100 mg PO DAILY [facility] Last Admin: 11/17/16 10:08 Dose: 100 mg Pantoprazole Sodium (Protonix -) 20 mg PO DAILY [facility] Last Admin: 11/17/16 10:07 Dose: 20 mg Polyethylene Glycol (Miralax (For Daily Use) -) 17 gm PO DAILY PRN PRN Reason: CONSTIPATION Ranolazine (Ranexa -) 500 mg PO BID [facility] Last Admin: 11/17/16 21:41 Dose: 500 mg - Objective Vital Signs: Vital Signs Temperature 98.6 F 11/18/16 07:00 Pulse Rate 64 11/18/16 07:00 Respiratory Rate 20 11/18/16 07:00 Blood Pressure 144/58 11/18/16 07:00 O2 Sat by Pulse Oximetry (%) 92 L 11/17/16 21:00 HENT: Yes: Atraumatic Neck: Yes: Supple Cardiovascular: Yes: Regular Rate and Rhythm, S1, S2 Respiratory: Yes: Diminished Gastrointestinal: Yes: Normal Bowel Sounds, Soft, Abdomen, Obese. No: Tenderness Edema: No Additional Findings/Remarks: - Review of Systems Cardiovascular: Denies: Chest Pain. denies: Palpitations, (+) Shortness of Breath Respiratory: Reports: Cough, denies: Hemoptysis, Orthopnea, PND, (+) SOB, SOB on Exertion Gastrointestinal: denies: Abdominal Pain, Constipation, Diarrhea, Melena, Nausea , Rectal Bleeding, Vomiting Neurological: denies: Dizziness, Headache, Seizure, Syncope Problem List - Problems (1) Bronchitis, asthmatic Code(s): J45.909 - UNSPECIFIED ASTHMA, UNCOMPLICATED Qualifiers: Asthma severity: unspecified severity Asthma complication type: uncomplicated Qualified Code(s): J45.909 - Unspecified asthma, uncomplicated (2) COPD (chronic obstructive pulmonary disease) with acute bronchitis Code(s): J44.0 - CHRONIC OBSTRUCTIVE PULMON DISEASE W ACUTE LOWER RESP INFCT (3) Diastolic dysfunction Code(s): I51.9 - HEART DISEASE, UNSPECIFIED (4) A-fib Code(s): I48.91 - UNSPECIFIED ATRIAL FIBRILLATION Qualifiers: Atrial fibrillation type: paroxysmal Qualified Code(s): I48.0 - Paroxysmal atrial fibrillation (5) CAD (coronary artery disease) Code(s): I25.10 - ATHSCL HEART DISEASE OF [place] CORONARY ARTERY W/O ANG PCTRS Qualifiers: Coronary Disease-Associated Artery/Lesion type: [place] artery [place] vs. transplanted heart: [place] heart Associated angina: without angina Qualified Code(s): I25.10 - Atherosclerotic heart disease of [place] coronary artery without angina pectoris (6) DVT (deep venous thrombosis) Code(s): I82.409 - ACUTE EMBOLISM AND [place] UNSP DEEP VN UNSP LOWER EXTREMITY (7) Diabetes mellitus Code(s): E11.9 - TYPE 2 DIABETES MELLITUS WITHOUT COMPLICATIONS Qualifiers: Diabetes mellitus type: type 2 Diabetes mellitus complication status: without complication Diabetes mellitus termite exterminator helper insulin use: without termite exterminator helper use Qualified Code(s): E11.9 - Type 2 diabetes mellitus without complications (8) H/O heart artery stent Code(s): Z95.5 - PRESENCE OF CORONARY ANGIOPLASTY IMPLANT AND GRAFT (9) Hypercholesteremia Code(s): E78.0 - PURE HYPERCHOLESTEROLEMIA * DO NOT USE * (10) Hypertension Code(s): I10 - ESSENTIAL (PRIMARY) HYPERTENSION Qualifiers: Hypertension type: essential hypertension Qualified Code(s): I10 - Essential (primary) hypertension (11) Hypothyroidism Code(s): E03.9 - HYPOTHYROIDISM, UNSPECIFIED Qualifiers: Hypothyroidism type: unspecified Qualified Code(s): E03.9 - Hypothyroidism, unspecified Assessment/Plan 1. Acute exacerbation of COPD with atypical post-tussive chest tightness 2. CAD post PCI/stent mildly abnormal MPI, angina pectoris 3. Diastolic LV dysfunction with chronic class I NYHA classification LV failure , compensated 4. PAF in sinus rhythm - [id number] score of 6 on NOAC 5. HTN/HCVD 6. DM 7. Hypercholesterolemia 8. Hypothyroidism 9. DVT/PE PLAN: 1. Continue bronchodilator, IV steroid taper, O2 as needed and empiric antibiotic course 2. Continue Toprol XL and Losartan. Continue Ranexa and Imdur 3. Continue Lipitor 4. Continue Apixaban 5 mg bid with caution and close monitoring of CBC Further plans are to follow. Continue present therapy and agree with SNF Tre Pascual MD
[2016-11-18] MEDS: LACTULOSE 20 GM/30 ML UDC (FOR ORAL USE ONLY) PO SCH (09:59)
[2016-11-18] MEDS: LOSARTAN POTASSIUM 50 MG TABLET (FP) PO SCH (10:00)
[2016-11-18] MEDS: METOPROLOL SUCCINATE 100 MG TAB.SR.24H (FP) PO SCH (10:00)
[2016-11-18] MEDS: ISOSORBIDE MONONITRATE 30 MG TAB.SR.24H (FP) PO SCH (10:00)
[2016-11-18] MEDS: RANOLAZINE E.R. 500 MG TABLET (FP) PO SCH (10:00)
[2016-11-18] MEDS: PANTOPRAZOLE 20 MG TABLET (FP) PO SCH (10:00)
[2016-11-18] MEDS: CHOLECALCIFEROL (VITAMIN D3) 1,000 UNIT TABLET (FP) PO SCH (10:00)
[2016-11-18] MEDS: DOCUSATE SODIUM 100 MG CAPSULE (FP) PO SCH (10:00)
[2016-11-18] MEDS: APIXABAN 5 MG TABLET PO SCH (10:00)
[2016-11-18] MEDS: ACLIDINIUM BROMIDE 400 MCG/INH AERO.POWD IH SCH (10:01)
[2016-11-18] MEDS: methylPREDNISolone NA SUCC 40 MG/1 ML VIAL IVPB SCH (10:38)
== END 2016-11-18 17:31 | DRG 191 ==
LOC: JER 18:32 → JERBED 20:46 → J4W 11-13 04:28
PROVIDERS: ADMIT Internal Medicine; ATTEND Internal Medicine
DX: J44.1 Chronic obstructive pulmonary disease with (acute) exacerbation (principal); J45.901 Unspecified asthma with (acute) exacerbation; I50.32 Chronic diastolic (congestive) heart failure; R42 Dizziness and giddiness; E03.9 Hypothyroidism, unspecified; E11.9 Type 2 diabetes mellitus without complications; K21.9 Gastro-esophageal reflux disease without esophagitis; E78.5 Hyperlipidemia, unspecified; I25.119 Atherosclerotic heart disease of native coronary artery with unspecified angina pectoris; Z98.61 Coronary angioplasty status; I48.0 Paroxysmal atrial fibrillation; Z87.891 Personal history of nicotine dependence; M48.00 Spinal stenosis, site unspecified; I11.0 Hypertensive heart disease with heart failure; J20.9 Acute bronchitis, unspecified; J44.0 Chronic obstructive pulmonary disease with (acute) lower respiratory infection
CPT/HCPCS: 36415; 71010-TC; 71250-TC; 80053; 82550; 82553; 83880; 84443; 84484; 85025; 93005; 93010; 99285-25

== ENCOUNTER 2017-02-06 13:30 | Observation (INO) | payer OTHER ==
[2017-02-06] MEDS ORDERED: ALBUTEROL SO4 2.5/IPRATROPIUM 0.5 INH SOL 3 ML VIAL.NEB. NEB ONE ×2 (13:39→14:01)
[2017-02-06 13:44] VITALS: BMI 30.8
--- NOTE | 2017-02-06 14:14 | PDOC ---
History of Present Illness <Grabiel Contreras - Last Filed: 02/06/17 20:24> <Mary Perez - Last Filed: 02/06/17 20:31> - General Chief Complaint: Chest Pain Stated Complaint: CHEST PAIN Time Seen by Provider: 02/06/17 13:39 - History of Present Illness Initial Comments: 02/06/17 15:38 Patient is an 81 year old female from [facility] with significant medical hx of asthma/COPD, spinal stenosis, hypothyroidism, AFib, DM, GERD, HTN, HLD, vertigo , CAD s/p stents x 6, GERD, prior PE and DVT who was seen in the ED on 11/12/16 and admitted for COPD exacerbation (discharged 11/18/16) presenting to the ED today with inspiratory chest pain b/l, acute on chronic but particularly painful today. She notes a productive cough with vora phlegm . She denies any fever or chills. Allergies: oxycodone, penicillins, prednisone Handle Bender - Dr. Callahan PCP - Dr. Liyah Wang 02/06/17 15:39 02/06/17 15:46 02/06/17 15:47 (Grabiel Contreras) Past History - Past Medical History Anemia: No Asthma: Yes Cardiac Disorders: Yes (CAD, Stents, angina) CVA: No COPD: Yes Dementia: Yes Diabetes: Yes GI Disorders: Yes (esophageal reflux) Disorders: No HTN: Yes Hypercholesterolemia: Yes Liver Disease: No Suicide Attempt (Hx): No Seizures: No Thyroid Disease: Yes (hypo) - Surgical History Abdominal Surgery: Yes Appendectomy: Yes Cardiac Surgery: Yes (STENTS X 5) Cholecystectomy: No Lung Surgery: No Neurologic Surgery: No - Immunization History Immunization Up to Date: Yes - Psycho/Social/Smoking Cessation Hx Anxiety: No Suicidal Ideation: No Smoking Status: No Smoking History: Former smoker Have you smoked in the past 12 months: No Number of Cigarettes Smoked Daily: 0 If you are a former smoker, when did you quit?: 30 yrs ago Cigars Per Day: 0 Information on smoking cessation initiated: No Hx Alcohol Use: No Drug/Substance Use Hx: No Substance Use Type: None Hx Substance Use Treatment: No <Grabiel Contreras - Last Filed: 02/06/17 20:24> <Mary Perez - Last Filed: 02/06/17 20:31> - Past Medical History Allergies/Adverse Reactions: Allergies Allergy/AdvReac Type Severity Reaction Status Date / Time Penicillins Allergy Intermediate Rash Verified 02/06/17 13:41 oxycodone HCl [From Percocet] AdvReac Intermediate Verified 02/06/17 13:41 prednisone AdvReac Verified 02/06/17 13:41 Home Medications: Ambulatory Orders Acetaminophen [Tylenol .Regular Strength -] 650 mg PO Q6H PRN #120 tablet Apixaban [Eliquis -] 5 mg PO BID #180 tablet 04/27/16 Levothyroxine [Synthroid -] 50 mcg PO DAILY@0700 #90 tablet 04/27/16 Meclizine HCl [Antivert -] 12.5 mg PO Q8H PRN #90 tablet 04/27/16 Metoprolol Succinate [Toprol XL -] 100 mg PO DAILY #90 tab.sr.24h 04/27/16 Polyethylene Glycol 3350 [Miralax 119 gm Btl -] 17 gm PO DAILY PRN #90 bottle Ranolazine [Ranexa] 500 mg PO BID #180 tab.er.12h 04/27/16 Cholecalciferol (Vitamin D3) [Vitamin D3 -] 4,000 unit PO DAILY 05/31/16 Docusate Sodium [Colace -] 100 mg PO BID 05/31/16 Albuterol Sulfate Inhaler - [Ventolin HFA Inhaler -] 1 inh PO Q4H PRN 08/19/16 Glipizide [Glucotrol -] 2.5 mg PO DAILY 08/19/16 Losartan Potassium [Cozaar -] 50 mg PO DAILY tablet 08/28/16 Lactulose 10 gm PO DAILY 11/12/16 Guaifenesin/D-Methorphan Hb [Diabetic Tussin Dm -] 10 ml PO Q6H PRN #0 ml Aclidinium [place] [Tudorza -] 1 inh PO BID 02/06/17 Glipizide/Metformin HCl [Glipizide-Metformin 5-500 mg] 0.5 each PO DAILY Insulin Sliding Scale [Novolog Vial Sliding Scale -] 0 units SQ ACHS PRN Isosorbide Mononitrate [Imdur -] 90 mg PO DAILY 02/06/17 Nitroglycerin Sublingual [Nitrostat -] 0.4 mg SL ASDIR PRN 02/06/17 Pantoprazole Sodium [Protonix -] 40 mg PO DAILY 02/06/17 Cardiac Specific PMH - Complaint Specific PMHX Pacemaker: No <Grabiel Contreras - Last Filed: 02/06/17 20:24> Review of Systems - Review of Systems Constitutional: No: Symptoms Reported HEENTM: No: Symptoms Reported Respiratory: Yes: See HPI Cardiac (ROS): Yes: See HPI ABD/GI: No: Symptoms Reported : No: Symptoms Reported Musculoskeletal: No: Symptoms Reported <Grabiel Contreras - Last Filed: 02/06/17 20:24> *Physical Exam - Physical Exam General Appearance: Yes: Nourished HEENT: positive: EOMI, JESSICA, Normal ENT Inspection Neck: negative: Tender, Trachea midline Respiratory/Chest: positive: Chest Tender, Lungs Clear, Normal Breath Sounds Cardiovascular: positive: Regular Rhythm, Regular Rate, S1, S2 Gastrointestinal/Abdominal: positive: Normal Bowel Sounds, Tender, Tenderness <Grabiel Contreras - Last Filed: 02/06/17 20:24> - Vital Signs Last Vital Signs Temp Pulse Resp BP Pulse Ox 98.2 F 66 17 145/77 96 02/06/17 13:30 02/06/17 19:11 02/06/17 19:11 02/06/17 19:11 02/06/17 19:11 ED Treatment Course - LABORATORY CBC & Chemistry Diagram: 02/06/17 14:30 02/06/17 14:30 <Grabiel Contreras - Last Filed: 02/06/17 20:24> - LABORATORY CBC & Chemistry Diagram: 02/06/17 14:30 02/06/17 14:30 <Mary Perez - Last Filed: 02/06/17 20:31> - ADDITIONAL ORDERS Additional order review: Laboratory Results 02/06/17 14:30 Sodium 141 Potassium 4.0 Chloride 106 Carbon Dioxide 25 Anion Gap 10 BUN 13 Creatinine 0.8 Creat Clearance w eGFR > 60 Random Glucose 124 H D Calcium 8.9 Total Bilirubin 0.5 AST 15 ALT 12 D Alkaline Phosphatase 39 L Creatine Kinase 60 Troponin I < 0.02 Total Protein 7.0 Albumin 3.4 02/06/17 14:30 RBC 4.12 MCV 95.3 MCHC 33.2 RDW 13.9 MPV 9.7 Neutrophils % 42.3 L D Lymphocytes % 46.3 H D Monocytes % 7.5 Eosinophils % 3.3 D Basophils % 0.6 - Medications Given in the ED: ED Medications Discontinued Medications Generic Name Dose Route Start Last Admin Trade Name Jose PRN Reason Stop Dose Admin Albuterol/Ipratropium 1 amp 02/06/17 13:39 02/06/17 14:33 Duoneb - NEB 02/06/17 13:40 1 amp ONCE ONE Administration Medical Decision Making <Grabiel Contreras - Last Filed: 02/06/17 20:24> <Mary Perez - Last Filed: 02/06/17 20:31> - Medical Decision Making 02/06/17 15:47 81 yo F it h/o HTN COPD / asthma, prior PE/DVT, CAD 6 stents , here with inspiratory chest pain. cta: Negative for PE unchanged from last time. Labs normal. Spoke to Liyah Wang who said she wanted the patient admitted to hospitalist, telemetry obs 02/06/17 19:09 02/06/17 19:16 (Grabiel Contreras) *DC/Admit/Observation/Transfer - Discharge Dispostion Admit: Yes <Grabiel Contreras - Last Filed: 02/06/17 20:24> - Discharge Dispostion Admit: Yes <Mary Perez - Last Filed: 02/06/17 20:31> Diagnosis at time of Disposition: Atypical angina - Referrals Referrals: Liyah Wang [Primary Care Provider] -
[2017-02-06 14:39] LABS: BASOPHIL 0.6 % (0-2.0); EOSINOPHIL 3.3 % (0-4.5); MCH 31.6 pg (25.7-33.7); MCHC 33.2 g/dl (32.0-36.0); MEAN CELL VOLUME 95.3 fl (80-96); MEAN PLT VOLUME 9.7 fl (7.5-11.1); NEUTROPHILS 42.3 % (42.8-82.8); PLATELET COUNT 158 K/MM3 (134-434); RDW 13.9 % (11.6-15.6); WHITE BLOOD COUNT 6.5 K/mm3 (4.0-10.0)
[2017-02-06 15:08] LABS: ALBUMIN 3.4 g/dl (3.4-5.0); ANION GAP 10 (8-16); BILIRUBIN,TOTAL 0.5 mg/dL (0.2-1.0); CALCIUM 8.9 mg/dL (8.5-10.1); CO2 25 mmol/L (21-32); CREATININE 0.8 mg/dL (0.55-1.02); GLUCOSE,RANDOM 124 mg/dL (74-106); SGOT/AST 15 U/L (15-37); SGPT/ALT 12 U/L (12-78)
[2017-02-06 15:11] LABS: ALK PHOS 39 U/L (45-117); CPK 60 IU/L (26-192); TROPONIN I < 0.02 ng/ml (0.00-0.05)
--- NOTE | 2017-02-06 16:07 | PDOC ---
Attending Attestation - Resident Resident Name: Grabiel Contreras - ED Attending Attestation I have performed the following: I have examined & evaluated the patient, The case was reviewed & discussed with the resident, I agree w/resident's findings & plan, Exceptions are as noted - HPI HPI: 02/06/17 16:03 "Patient is a 81 year old female from [facility] with a significant past medical history of asthma/COPD, spinal stenosis, hypothyroidism, AFib, DM, GERD, HTN, HLD, vertigo, CAD s/p multivessel stents, diastolic dysfunction, hypothyroidism , GERD, prior PE and DVT, who presents to the ED with complaints of chest pain starting last week. She reports pain intensity increased when taking deep breaths, States the pain feels like her COPD. Endorses some SOB. Denies F/C. Denies leg swelling/calf pain. Pt reports some improvement in her symptoms with nebulizer treatments. Denies palpitations, dizziness. Denies nausea, vomiting, chills. Denies any other symptoms. PMD: Dr. Wang - Physicial Exam PE: 02/06/17 16:05 "GENERAL: Awake, alert, and fully oriented, in no acute distress HEAD: No signs of trauma EYES: PERRLA, EOMI, sclera anicteric, conjunctiva clear ENT: Auricles normal inspection, hearing grossly normal, nares patent, oropharynx clear without exudates. Moist mucosa NECK: Normal ROM, supple, no lymphadenopathy, JVD, or masses LUNGS: Breath sounds equal, clear to auscultation bilaterally. No wheezes, and no crackles HEART: Regular rate and rhythm, normal S1 and S2, no murmurs, rubs or gallops ABDOMEN: Soft, nontender, normoactive bowel sounds. No guarding, no rebound. No masses EXTREMITIES: Normal range of motion, no edema. No clubbing or cyanosis. No cords, erythema, or tenderness NEUROLOGICAL: Cranial nerves II through XII grossly intact. Normal speech, normal gait SKIN: Warm, Dry, normal turgor, no rashes or lesions noted. " - Medical Decision Making 02/06/17 16:05 81 F with multiple cardiac risk factors, DVT/PE on eliquis presents to ER with pleuritic chest pain x several days. Likely COPD exacerbation, though pt without any wheezes on exam. Must r/o ACS vs PE. - Labs, trop - CXR - CTPE
--- NOTE | 2017-02-06 16:10 | EKG ---
Test Reason : Blood Pressure : / mmHG Vent. Rate : 064 BPM Atrial Rate : 064 BPM P-R Int : 170 ms QRS Dur : 076 ms QT Int : 404 ms P-R-T Axes : 064 024 129 degrees QTc Int : 416 ms NORMAL SINUS RHYTHM T WAVE ABNORMALITY, CONSIDER LATERAL ISCHEMIA ABNORMAL ECG WHEN COMPARED WITH ECG OF 12-NOV-2016 19:46, VENT. RATE HAS DECREASED BY 31 BPM Confirmed by MD HELEN, FAVIOLA ([id number]) on 02/06/2017 4:09:45 PM Referred By: Confirmed By:FAVIOLA CERVANTES MD
[2017-02-06] MEDS ORDERED: ALBUTEROL SO4 2.5/IPRATROPIUM 0.5 INH SOL 3 ML VIAL.NEB. NEB PRN (20:30)
[2017-02-06] MEDS ORDERED: NITROGLYCERIN SUBLINGUAL 1/150 0.4 MG TAB SL PRN (20:31)
[2017-02-06] MEDS ORDERED: ALBUTEROL SO4 6.7 GM HFA INHALER IH PRN (20:31)
[2017-02-06] MEDS ORDERED: MECLIZINE HCL 12.5 MG TABLET PO PRN (20:31)
[2017-02-06] MEDS ORDERED: guaiFENesin/D-M SUGAR-FREE/ACLHOL-FREE 118 ML BOTTLE PO PRN (20:31)
[2017-02-06] MEDS ORDERED: ACETAMINOPHEN 325 MG TABLET (FP) PO PRN (20:31)
[2017-02-06] MEDS ORDERED: POLYETHYLENE GLYCOL 3350 119 GM BTL PO PRN (20:31)
[2017-02-06 20:33] LABS: TROPONIN I < 0.02 ng/ml (0.00-0.05)
[2017-02-06 20:34] LABS: CPK 94 IU/L (26-192)
[2017-02-06] MEDS ORDERED: HEPARIN NA (PORCINE) 5,000 UNITS/ML 1ML VIAL SQ SCH (20:45)
[2017-02-06] MEDS ORDERED: HEPARIN NA (PORCINE) 5,000 UNITS/ML 1ML VIAL ONE (21:06)
--- NOTE | 2017-02-06 21:59 | HP ---
CHIEF COMPLAINT:chest pain PCP:Dr. Taylor Wang HISTORY OF PRESENT ILLNESS: This is an 81 year old female from [facility] that presents with complaints of anterior chest pressure for the past two weeks. She does not state a precipitating factor or event that provoked her to come to the hospital. This pressure is constant and worse with movement. She denies light headedness, diaphoresis, arm/jaw pain/tingling, palpitations, edema. Patient also endorses a chronic,(2012) left sided anterior chest wall pain that is worse with ambulation, palpation and breathing. She attributes pain due to moving furniture back in 2012, the pain has never subsided. Zaynab Bernal has stress echo 2012 showing lateral ischemia, status post cardiac stents, 2012. Past medical history includes asthma/COPD, spinal stenosis, hypothyroidism, AFib (on AC), DM, GERD, HTN, HLD, vertigo, CAD s/p multi vessel stents, diastolic dysfunction, hypothyroidism, GERD, prior PE and DVT. Allergies: oxycodone, penicillins, prednisone ER course was notable for: (1)ECG showing T wave abnormality and possible lateral wall ischemia ( comparable to previous) (2)troponin x1 negative (3)CTA negative Recent Travel: none PAST MEDICAL HISTORY: asthma/COPD, spinal stenosis, hypothyroidism, AFib (on AC), DM, GERD, HTN, HLD , vertigo, CAD s/p multi vessel stents, diastolic dysfunction, hypothyroidism, GERD, prior PE and DVT. PAST SURGICAL HISTORY: S/p cardiac stents Social History: Smoking:no Alcohol:no Drugs:no Family History: Allergies Penicillins Allergy (Intermediate, Verified 02/06/17 13:41) Rash oxycodone HCl [From Percocet] Adverse Reaction (Intermediate, Verified 02/06/17 13:41) prednisone Adverse Reaction (Verified 02/06/17 13:41) "it made me feel like i was crawling out of my skin, i don't have an allergy to prednisone" HOME MEDICATIONS: Home Medications Medication Instructions Recorded Acetaminophen [Tylenol .Regular 650 mg PO Q6H PRN #120 tablet 04/27/16 Strength -] Apixaban [Eliquis -] 5 mg PO BID #180 tablet 04/27/16 Levothyroxine [Synthroid -] 50 mcg PO DAILY@0700 #90 tablet 04/27/16 Meclizine HCl [Antivert -] 12.5 mg PO Q8H PRN #90 tablet 04/27/16 Metoprolol Succinate [Toprol XL -] 100 mg PO DAILY #90 tab.sr.24h 04/27/16 Polyethylene Glycol 3350 [Miralax 17 gm PO DAILY PRN #90 bottle 04/27/16 119 gm Btl -] Ranolazine [Ranexa] 500 mg PO BID #180 tab.er.12h 04/27/16 Cholecalciferol (Vitamin D3) 4,000 unit PO DAILY 05/31/16 [Vitamin D3 -] Docusate Sodium [Colace -] 100 mg PO BID 05/31/16 Albuterol Sulfate Inhaler - 1 inh PO Q4H PRN 08/19/16 [Ventolin HFA Inhaler -] Glipizide [Glucotrol -] 2.5 mg PO DAILY 08/19/16 Losartan Potassium [Cozaar -] 50 mg PO DAILY tablet 08/28/16 Lactulose 10 gm PO DAILY 11/12/16 Guaifenesin/D-Methorphan Hb 10 ml PO Q6H PRN #0 ml 11/18/16 [Diabetic Tussin Dm -] Aclidinium [place] [Tudorza -] 1 inh PO BID 02/06/17 Glipizide/Metformin HCl 0.5 each PO DAILY 02/06/17 [Glipizide-Metformin 5-500 mg] Insulin Sliding Scale [Novolog 0 units SQ ACHS PRN 02/06/17 Vial Sliding Scale -] Isosorbide Mononitrate [Imdur -] 90 mg PO DAILY 02/06/17 Nitroglycerin Sublingual 0.4 mg SL ASDIR PRN 02/06/17 [Nitrostat -] Pantoprazole Sodium [Protonix -] 40 mg PO DAILY 02/06/17 REVIEW OF SYSTEMS CONSTITUTIONAL: Positive: generalized weakness Absent: fever, chills, diaphoresis, malaise, loss of appetite, weight change HEENT: Absent: rhinorrhea, nasal congestion, throat pain, throat swelling, difficulty swallowing, mouth swelling, ear pain, eye pain, visual changes CARDIOVASCULAR: Positive:chest pain Absent:syncope, palpitations, irregular heart rate, lightheadedness, peripheral edema RESPIRATORY: Positive:shortness of breath, dyspnea with exertion Absent: cough, with exertion, orthopnea, wheezing, stridor, hemoptysis GASTROINTESTINAL: Absent: abdominal pain, abdominal distension, nausea, vomiting, diarrhea, constipation, melena, hematochezia GENITOURINARY: Absent: dysuria, frequency, urgency, hesitancy, hematuria, flank pain, genital pain MUSCULOSKELETAL: Positive: chronic back Absent: myalgia, arthralgia, joint swelling, neck pain SKIN: Absent: rash, itching, pallor HEMATOLOGIC/IMMUNOLOGIC: Absent: easy bleeding, easy bruising, lymphadenopathy, frequent infections ENDOCRINE: Absent: unexplained weight gain, unexplained weight loss, heat intolerance, cold intolerance NEUROLOGIC: Absent: headache, focal weakness or paresthesias, dizziness, unsteady gait, seizure, mental status changes, bladder or bowel incontinence PSYCHIATRIC: Absent: anxiety, depression, suicidal or homicidal ideation, hallucinations. PHYSICAL EXAMINATION Vital Signs - 24 hr 02/06/17 02/06/17 02/06/17 13:30 17:34 19:11 Temperature 98.2 F Pulse Rate 60 Pulse Rate [ 60 66 Apical] Respiratory 18 16 17 Rate Blood Pressure 149/74 Blood Pressure 160/82 145/77 [Left Arm] O2 Sat by Pulse 98 95 96 Oximetry (%) GENERAL: Awake, alert, and fully oriented, in no acute distress, laying comfortable in bed HEAD: Normal with no signs of trauma. EYES: Pupils equal, round and reactive to light, extraocular movements intact, sclera anicteric, conjunctiva clear. No lid lag. LUNGS: Breath sounds equal, clear to auscultation bilaterally. No wheezes, and no crackles. No accessory muscle use. HEART: Regular rate and rhythm, normal S1 and S2 without murmur, rub or gallop. Anterior chest wall: pain under left breast with light touch on rib cage, no bruising, swelling, erythema noted ABDOMEN: Soft, nontender, not distended, normoactive bowel sounds, no guarding, no rebound, no masses. No hepatomegaly or splenomegaly. MUSCULOSKELETAL: Normal range of motion at all joints. No bony deformities or tenderness. No CVA tenderness. UPPER EXTREMITIES: 2+ pulses, warm, well-perfused. No cyanosis. No clubbing. No peripheral edema. LOWER EXTREMITIES: 2+ pulses, warm, well-perfused. No calf tenderness. No peripheral edema. NEUROLOGICAL: Cranial nerves II-XII intact. Normal speech. Normal gait. PSYCHIATRIC: Cooperative. Good eye contact. Appropriate mood and affect. SKIN: Warm, dry, normal turgor, no rashes or lesions noted, normal capillary refill. CBC, BMP 02/06/17 14:30 02/06/17 14:30 Current Medications Generic Name Dose Route Start Last Admin Trade Name Freq PRN Reason Stop Dose Admin Acetaminophen 650 mg 02/06/17 20:31 Tylenol - PO Q6H PRN FEVER OR PAIN Aclidinium [place] 1 puff 02/06/17 22:00 Tudorza - IH BID JOSSUE Albuterol Sulfate 1 puff 02/06/17 20:31 Ventolin Hfa Inhaler - IH Q4H PRN SHORT OF BREATH/WHEEZING Albuterol/Ipratropium 1 amp 02/06/17 20:30 Duoneb - NEB QIDR PRN WHEEZING Apixaban 5 mg 02/06/17 22:00 Eliquis - PO BID COUNTS INCLUDE 234 BEDS AT THE [facility] Cholecalciferol 4,000 unit 02/07/17 10:00 Vitamin D3 - PO DAILY COUNTS INCLUDE 234 BEDS AT THE [facility] Docusate Sodium 100 mg 02/06/17 22:00 Colace - PO BID COUNTS INCLUDE 234 BEDS AT THE [facility] Guaifenesin 10 ml 02/06/17 20:31 Diabetic Tussin Dm - PO Q6H PRN COUGH Insulin Aspart 1 vial 02/06/17 22:00 Novolog Vial Sliding Scale - SQ ACHS COUNTS INCLUDE 234 BEDS AT THE [facility] Protocol Isosorbide Mononitrate 30 mg/ 90 mg 02/07/17 10:00 Isosorbide Mononitrate 60 mg PO DAILY COUNTS INCLUDE 234 BEDS AT THE [facility] Lactulose 10 gm 02/07/17 10:00 Cephulac (Oral Use) PO DAILY COUNTS INCLUDE 234 BEDS AT THE [facility] Levothyroxine Sodium 50 mcg 02/07/17 07:00 Synthroid - PO DAILY@0700 JOSSUE Losartan Potassium 50 mg 02/07/17 10:00 Cozaar - PO DAILY COUNTS INCLUDE 234 BEDS AT THE [facility] Meclizine HCl 12.5 mg 02/06/17 20:31 Antivert - PO Q8H PRN VERTIGO Metoprolol Succinate 100 mg 02/07/17 10:00 Toprol Xl - PO DAILY COUNTS INCLUDE 234 BEDS AT THE [facility] Nitroglycerin 0.4 mg 02/06/17 20:31 Nitrostat - SL PRN PRN cp Pantoprazole Sodium 40 mg 02/07/17 10:00 Protonix - PO DAILY COUNTS INCLUDE 234 BEDS AT THE [facility] Polyethylene Glycol 17 gm 02/06/17 20:31 Miralax (For Daily Use) - PO DAILY PRN CONSTIPATION Ranolazine 500 mg 02/06/17 22:00 Ranexa - PO BID JOSSUE ASSESSMENT/PLAN: 81 year old female with a past medical history of COPD, atrial fibrillation on eliquis, hypothyroid, CAD s/p stents, diastolic dysfunction, diabetes mellitus type II, presents with chest pressure for two weeks. Unstable angina vs musculoskeletal pain, rule out ACS. #Chest pain secondary to angina vs musculoskeletal pain, vs ACS -PE, pain was reproducible with light tough which points toward musculoskelatel -dur to previous cardiac history, work up for ACS -ecg no new significant abnormalities -last echo 2014 showing normal LV function, no wall motion abnormalities, RV normal ; mild mitral thickening and calcification -troponin negative x1; trend -cardiac monitoring -aspirin 325mg x1 -cont renexa 500mg BID -cont nitroglycerin .4mg SL prn -cardiac consult eval #Shortness of breath secondary to musculoskeletel pain vs hx of COPD vs worsening diastolic dysfunction?: -lungs clear on exam -chest CTA negative; -f/u echocardiogram -duoneb q4h prn -continue home COPD meds including turdoza and ventolin inhaler #hx of atrial fibrillation; -currently in NSR -cont eliquis 5mg bid #hypertension: somewhat uncontrolled -most likely elevated due to acute pain/distress; will monitor on home meds, if persists when comfortable, consider dose adjustments -metoprolol 100mg po daily -losaratn 50mg po daily #vertigo: controlled -cont meclizine #diabetes mellitues type II: insulin dep -hold home meds: -insulin SS -BGM ACHS #GERD: -cont pantoprozole 40mg po qd #hypothyroid: -TSH level to asses thyroid function, may contribute to associated symptoms -cont levothyroxine 50mcg daily FEN: Fluids: po intake Electrolytes: wnl Diet: low sodium; hold breakfast until cardio evaluation, may warrant further cardiac eval VTE prophylaxis: on eliquis Disposition: monitor in observation/telemetry/await troponin and cardiac evaluation Problem List - Problem (1) Atypical angina Code(s): I20.8 - OTHER FORMS OF ANGINA PECTORIS (2) Diastolic dysfunction without heart failure Code(s): I51.9 - HEART DISEASE, UNSPECIFIED (3) Vertigo Code(s): R42 - DIZZINESS AND GIDDINESS (4) A-fib Code(s): I48.91 - UNSPECIFIED ATRIAL FIBRILLATION Qualifiers: Atrial fibrillation type: paroxysmal Qualified Code(s): I48.0 - Paroxysmal atrial fibrillation (5) Asthma Code(s): J45.909 - UNSPECIFIED ASTHMA, UNCOMPLICATED Qualifiers: Asthma severity: unspecified severity Asthma complication type: uncomplicated Qualified Code(s): J45.909 - Unspecified asthma, uncomplicated (6) CAD (coronary artery disease) Code(s): I25.10 - ATHSCL HEART DISEASE OF [place] CORONARY ARTERY W/O ANG PCTRS Qualifiers: Coronary Disease-Associated Artery/Lesion type: [place] artery [place] vs. transplanted heart: [place] heart Associated angina: without angina Qualified Code(s): I25.10 - Atherosclerotic heart disease of [place] coronary artery without angina pectoris (7) COPD (chronic obstructive pulmonary disease) Code(s): J44.9 - CHRONIC OBSTRUCTIVE PULMONARY DISEASE, UNSPECIFIED Qualifiers : COPD type: unspecified COPD Qualified Code(s): J44.9 - Chronic obstructive pulmonary disease, unspecified (8) Diabetes mellitus Code(s): E11.9 - TYPE 2 DIABETES MELLITUS WITHOUT COMPLICATIONS Qualifiers: Diabetes mellitus type: type 2 Diabetes mellitus complication status: without complication Diabetes mellitus penitentiary insulin use: without penitentiary use Qualified Code(s): E11.9 - Type 2 diabetes mellitus without complications (9) GERD (gastroesophageal reflux disease) Code(s): K21.9 - GASTRO-ESOPHAGEAL REFLUX DISEASE WITHOUT ESOPHAGITIS (10) H/O heart artery stent Code(s): Z95.5 - PRESENCE OF CORONARY ANGIOPLASTY IMPLANT AND GRAFT (11) Hypertension Code(s): I10 - ESSENTIAL (PRIMARY) HYPERTENSION Qualifiers: Hypertension type: essential hypertension Qualified Code(s): I10 - Essential (primary) hypertension (12) Hypothyroidism Code(s): E03.9 - HYPOTHYROIDISM, UNSPECIFIED Qualifiers: Hypothyroidism type: unspecified Qualified Code(s): E03.9 - Hypothyroidism, unspecified (13) Musculoskeletal chest pain Code(s): R07.89 - OTHER CHEST PAIN Visit type - Emergency Visit Emergency Visit: Yes ED Registration Date: 02/06/17 Care time: The patient presented to the Emergency Department on the above date and was hospitalized for further evaluation of their emergent condition. - New Patient This patient is new to me today: Yes Date on this admission: 02/07/17 - Critical Care Critical Care patient: No
[2017-02-06] MEDS ORDERED: ASPIRIN 325 MG ENTERIC COATED TABLET (FP) PO ONE (22:02)
[2017-02-06] MEDS: DOCUSATE SODIUM 100 MG CAPSULE (FP) PO SCH ×2 (23:05→23:09)
[2017-02-06] MEDS: RANOLAZINE E.R. 500 MG TABLET (FP) PO SCH (23:05)
[2017-02-06] MEDS: APIXABAN 5 MG TABLET PO SCH (23:05)
[2017-02-06] MEDS: ACLIDINIUM BROMIDE 400 MCG/INH AERO.POWD IH SCH (23:09)
[2017-02-06] MEDS: INSULIN SLIDING SCALE (NOVOLOG) 1 VIAL SQ SCH (23:09)
--- NOTE | 2017-02-07 00:02 | PN ---
Teaching Attending Note Name of Resident: Dustin Khan ATTENDING PHYSICIAN STATEMENT I saw and evaluated the patient. I reviewed the resident's note and discussed the case with the resident. I agree with the resident's findings and plan as documented. SUBJECTIVE:81 year old female c/o left sided chest pain x 2 years, 4/10 , non radiating , constant , worse on inspiration and movement . PMH CAD multiple stents in the past CHRONIC DIASTOLIC DYSFUNCTION HLD AFIB VERTIGO DVT PE COPD PAST SURGICAL HISTORY: S/p cardiac stents Social History: Smoking:no Alcohol:no Drugs:no Family History: Allergies Penicillins Allergy (Intermediate, Verified 02/06/17 13:41) Rash oxycodone HCl [From Percocet] Adverse Reaction (Intermediate, Verified 02/06/17 13:41) prednisone Adverse Reaction (Verified 02/06/17 13:41) "it made me feel like i was crawling out of my skin, i don't have an allergy to prednisone" Home Medication List Medication Instructions Recorded Confirmed Type Cholecalciferol (Vitamin D3) 4,000 unit PO DAILY 05/31/16 02/06/17 History [Vitamin D3 -] Docusate Sodium [Colace -] 100 mg PO BID 05/31/16 02/06/17 History Albuterol Sulfate Inhaler - 1 inh PO Q4H PRN 08/19/16 02/06/17 History [Ventolin HFA Inhaler -] Glipizide [Glucotrol -] 2.5 mg PO DAILY 08/19/16 02/06/17 History Lactulose 10 gm PO DAILY 11/12/16 02/06/17 History Aclidinium [place] [Tudorza -] 1 inh PO BID 02/06/17 02/06/17 History Glipizide/Metformin HCl 0.5 each PO DAILY 02/06/17 02/06/17 History [Glipizide-Metformin 5-500 mg] Insulin Sliding Scale [Novolog 0 units SQ ACHS PRN 02/06/17 02/06/17 History Vial Sliding Scale -] Isosorbide Mononitrate [Imdur -] 90 mg PO DAILY 02/06/17 02/06/17 History Nitroglycerin Sublingual 0.4 mg SL ASDIR PRN 02/06/17 02/06/17 History [Nitrostat -] Pantoprazole Sodium [Protonix -] 40 mg PO DAILY 02/06/17 02/06/17 History OBJECTIVE: Vital Signs Temperature 98.2 F 02/06/17 13:30 Pulse Rate 66 02/06/17 19:11 Respiratory Rate 17 02/06/17 19:11 Blood Pressure 145/77 02/06/17 19:11 O2 Sat by Pulse Oximetry (%) 96 02/06/17 19:11 EYES: Pupils equal, round and reactive to light, extraocular movements intact, sclera anicteric, conjunctiva clear. No lid lag. LUNGS: Breath sounds equal, clear to auscultation bilaterally. No wheezes, and no crackles. No accessory muscle use. HEART: Regular rate and rhythm, normal S1 and S2 without murmur, rub or gallop. Anterior chest wall: REPRODUCIBLE pain under left breast with light touch on rib cage ABDOMEN: Soft, nontender, not distended, normoactive bowel sounds, no guarding, no rebound, no masses. No hepatomegaly or splenomegaly. MUSCULOSKELETAL: Normal range of motion at all joints. No bony deformities or tenderness. No CVA tenderness. UPPER EXTREMITIES: 2+ pulses, warm, well-perfused. No cyanosis. No clubbing. No peripheral edema. LOWER EXTREMITIES: 2+ pulses, warm, well-perfused. No calf tenderness. No peripheral edema. CBC, BMP 02/06/17 14:30 02/06/17 14:30 CXR NAPD EKG - NO NEW CHANGES ASSESSMENT AND PLAN: 1. ATYPICAL CHEST PAIN IN A PATIENT WITH HISTORY OF CAD - UNLIKELY CARDIAC CONSIDERING DURATION , ATYPICAL PRESENTATION AND NO ACUTE EKG CHANGES , HOWEVER CAN NOT COMPLETELY EXCLUDE ISCHEMIA WITHOUT FURTHER MONITORING - TELEMETRY - NITRO PRN S/L - TROPONINS X 3 - C/W THE REST OF THE [facility] MEDS - CARDIOLOGY 2. COPD- STABLE - C/W NEBS PRN 3. DM - O/P FOLLOW UP FOR A1C
[2017-02-07 06:04] VITALS: TEMP 98
[2017-02-07] MEDS: INSULIN SLIDING SCALE (NOVOLOG) 1 VIAL SQ SCH (06:05)
[2017-02-07] MEDS ORDERED: LEVOTHYROXINE NA 50 MCG TABLET (FP) PO SCH (07:00)
--- NOTE | 2017-02-07 07:10 | PN ---
Progress Note (short form) - Note Progress Note: Chief Complaint: Events noted, notes reviewed. Chest pain syndrome and dyspnea, atypical for CAD angina pectoris History of Present Illness: Seen and examined on telemetry. Full consult dictated - Current Medication List Current Medications Acetaminophen (Tylenol -) 650 mg PO Q6H PRN PRN Reason: FEVER OR PAIN Aclidinium [place] (Tudorza -) 1 puff IH BID [facility] Last Admin: 02/06/17 23:09 Dose: Not Given Albuterol Sulfate (Ventolin Hfa Inhaler -) 1 puff IH Q4H PRN PRN Reason: SHORT OF BREATH/WHEEZING Albuterol/Ipratropium (Duoneb -) 1 amp NEB QIDR PRN PRN Reason: WHEEZING Apixaban (Eliquis -) 5 mg PO BID [facility] Last Admin: 02/06/17 23:05 Dose: 5 mg Cholecalciferol (Vitamin D3 -) 4,000 unit PO DAILY [facility] Docusate Sodium (Colace -) 100 mg PO BID [facility] Last Admin: 02/06/17 23:09 Dose: Not Given Guaifenesin (Diabetic Tussin Dm -) 10 ml PO Q6H PRN PRN Reason: COUGH Insulin Aspart (Novolog Vial Sliding Scale -) 1 vial SQ ACHS [facility] PRN Reason: Protocol Last Admin: 02/07/17 06:05 Dose: Not Given Isosorbide Mononitrate 30 mg/ (Isosorbide Mononitrate 60 mg) 90 mg PO DAILY [facility] Lactulose (Cephulac (Oral Use)) 10 gm PO DAILY [facility] Levothyroxine Sodium (Synthroid -) 50 mcg PO DAILY@0700 [facility] Last Admin: 02/07/17 06:05 Dose: 50 mcg Losartan Potassium (Cozaar -) 50 mg PO DAILY [facility] Meclizine HCl (Antivert -) 12.5 mg PO Q8H PRN PRN Reason: VERTIGO Metoprolol Succinate (Toprol Xl -) 100 mg PO DAILY [facility] Nitroglycerin (Nitrostat -) 0.4 mg SL PRN PRN PRN Reason: cp Pantoprazole Sodium (Protonix -) 40 mg PO DAILY [facility] Polyethylene Glycol (Miralax (For Daily Use) -) 17 gm PO DAILY PRN PRN Reason: CONSTIPATION Ranolazine (Ranexa -) 500 mg PO BID [facility] Last Admin: 02/06/17 23:05 Dose: 500 mg Home Medications Medication Instructions Recorded Acetaminophen [Tylenol .Regular 650 mg PO Q6H PRN #120 tablet 04/27/16 Strength -] Apixaban [Eliquis -] 5 mg PO BID #180 tablet 04/27/16 Levothyroxine [Synthroid -] 50 mcg PO DAILY@0700 #90 tablet 04/27/16 Meclizine HCl [Antivert -] 12.5 mg PO Q8H PRN #90 tablet 04/27/16 Metoprolol Succinate [Toprol XL -] 100 mg PO DAILY #90 tab.sr.24h 04/27/16 Polyethylene Glycol 3350 [Miralax 17 gm PO DAILY PRN #90 bottle 04/27/16 119 gm Btl -] Ranolazine [Ranexa] 500 mg PO BID #180 tab.er.12h 04/27/16 Cholecalciferol (Vitamin D3) 4,000 unit PO DAILY 05/31/16 [Vitamin D3 -] Docusate Sodium [Colace -] 100 mg PO BID 05/31/16 Albuterol Sulfate Inhaler - 1 inh PO Q4H PRN 08/19/16 [Ventolin HFA Inhaler -] Glipizide [Glucotrol -] 2.5 mg PO DAILY 08/19/16 Losartan Potassium [Cozaar -] 50 mg PO DAILY tablet 08/28/16 Lactulose 10 gm PO DAILY 11/12/16 Guaifenesin/D-Methorphan Hb 10 ml PO Q6H PRN #0 ml 11/18/16 [Diabetic Tussin Dm -] Aclidinium [place] [Tudorza -] 1 inh PO BID 02/06/17 Glipizide/Metformin HCl 0.5 each PO DAILY 02/06/17 [Glipizide-Metformin 5-500 mg] Insulin Sliding Scale [Novolog 0 units SQ ACHS PRN 02/06/17 Vial Sliding Scale -] Isosorbide Mononitrate [Imdur -] 90 mg PO DAILY 02/06/17 Nitroglycerin Sublingual 0.4 mg SL ASDIR PRN 02/06/17 [Nitrostat -] Pantoprazole Sodium [Protonix -] 40 mg PO DAILY 02/06/17 Review of Systems Constitutional: denies Chills or Fever Respiratory: denies Cough or Sputum Production Cardiovascular: As noted above Gastrointestinal: denies Nausea, Vomiting, Abdominal Pain, Diarrhea or Constipation Genitourinary: no symptoms reported - Objective Vital Signs: Last Vital Signs Temp Pulse Resp BP Pulse Ox 98 F 63 15 118/64 98 02/07/17 06:00 02/07/17 06:00 02/07/17 06:00 02/07/17 06:00 02/07/17 05:00 Neck: Supple Negative JVD No Bruit Respiratory: Clear to A&P Bilaterally Chest: Chest Wall and Costo-chondral Tenderness Cardiovascular: S1 S2 Regular Rate and Rhythm 1-2/6 SM Gastrointestinal: Soft Benign Normal Bowel Sounds Ext: No Edema Labs: CBC, BMP 02/06/17 14:30 02/06/17 14:30 Troponin, BNP 02/06/17 02/06/17 14:30 19:48 Troponin I < 0.02 < 0.02 Hepatic Panel Total Bilirubin 0.5 mg/dL (0.2-1.0) 02/06/17 14:30 AST 15 U/L (15-37) 02/06/17 14:30 ALT 12 U/L (12-78) D 02/06/17 14:30 Alkaline Phosphatase 39 U/L (45-117) L 02/06/17 14:30 Albumin 3.4 g/dl (3.4-5.0) 02/06/17 14:30 Assessment/Plan ASSESSMENT: 1. Chest pain syndrome, chest wall discomfort costochondritis (chronic) 2. CAD post PCI/stent abnormal MPI angina pectoris for medical therapy 3. Diastolic LV dysfunction with chronic class I NYHA classification LV failure , compensated/euvolemic 4. PAF [id number] score of 6 on NOAC's 5. HTN 6. DM 7. Hypercholesterolemia 8. Hyothyroidism PLAN: 1. Continue Toprol XL 2. Continue Losartan 3. Continue Ranexa 4. Continue Imdur 5. Continue Lipitor 6. Continue Apixaban with caution and close monitoring of CBC and no indication to initiate ASA, remote history of PCI/stent with stable CAD 7. As outlined in prior notes from prior admissions plan for medical therapy continuation and optimization, discussed in detail with the patient Cori Farley M.D.
--- NOTE | 2017-02-07 07:33 | DS ---
Physical Exam: SUBJECTIVE: Patient seen and examined. continues to have chest pressure worse on deep inspiration. denies SOB, fever, chills,. claims medication compliance OBJECTIVE: Vital Signs Period Temp Pulse Resp BP Sys/Bonner Pulse Ox Last 24 Hr 98 F-98.9 F 62-65 15-18 118-124/64-70 98 PHYSICAL EXAM GENERAL: The patient is awake, alert, and fully oriented, in no acute distress. HEAD: Normal with no signs of trauma. EYES: PERRL, extraocular movements intact, sclera anicteric, conjunctiva clear. ENT: Ears normal, nares patent, oropharynx clear without exudates, moist mucous membranes. NECK: Trachea midline, full range of motion, supple. LUNGS: Breath sounds equal, clear to auscultation bilaterally, no wheezes, no crackles, no accessory muscle use. HEART: Regular rate and rhythm, S1, S2 without murmur, rub or gallop. +chest wall tenderness ABDOMEN: Soft, nontender, nondistended, normoactive bowel sounds, no guarding, no rebound, no hepatosplenomegaly, no masses. obese EXTREMITIES: 2+ pulses, warm, well-perfused, no edema. NEUROLOGICAL: Cranial nerves II through XII grossly intact. Normal speech, gait not observed. PSYCH: Normal mood, normal affect. SKIN: Warm, dry, normal turgor, no rashes or lesions noted. LABS Laboratory Results - last 24 hr 02/06/17 02/07/17 23:04 05:58 POC Glucometer 97 98 HOSPITAL COURSE: Date of Admission:02/06/17 Date of Discharge: 02/07/17 pre admitting diagnosis: r/o ACS pre hospital course 81 year old female from [facility] that presents with complaints of anterior chest pressure for the past two weeks. She does not state a precipitating factor or event that provoked her to come to the hospital. This pressure is constant and worse with movement. She denies light headedness, diaphoresis, arm/jaw pain/tingling, palpitations, edema. Patient also endorses a chronic,(2012) left sided anterior chest wall pain that is worse with ambulation, palpation and breathing. She attributes pain due to moving furniture back in 2013, the pain has never subsided. Zaynab Bernal has stress echo 2012 showing lateral ischemia, status post cardiac stents, 2012. [facility] course tele observation, CTA done to r/o PE. 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 evaulated by cardio whom this pt is well known to. complaints seem to be the same as she been having for the past year. pain is reproducible, no EKG changes or cardiac enzymes. home medications resumed. d/c to SNF Minutes to complete discharge: 40 Discharge Summary Reason For Visit: CHEST PAIN Current Active Problems Atypical angina (Acute) Diastolic dysfunction without heart failure (Acute) Vertigo (Acute) - Instructions Diet, Activity, Other Instructions: You were observed overnight due to your chest pain. Your workup has been negative. this is likely due to the chronic musculoskeletal pain youve been experiencing for the past year. Continue your home medications Follow a low salt, diabetic diet FOllow up with your primary care doctor in 1 week Follow up with cardiology for further management return to the ER if pain worsens in character or if you develop shortness of breath Referrals: Liyah Wang [Primary Care Provider] - Cori Farley MD [Staff Physician] - - Home Medications Comprehensive Discharge Medication List: Ambulatory Orders Acetaminophen [Tylenol .Regular Strength -] 650 mg PO Q6H PRN #120 tablet Apixaban [Eliquis -] 5 mg PO BID #180 tablet 04/27/16 Levothyroxine [Synthroid -] 50 mcg PO DAILY@0700 #90 tablet 04/27/16 Meclizine HCl [Antivert -] 12.5 mg PO Q8H PRN #90 tablet 04/27/16 Metoprolol Succinate [Toprol XL -] 100 mg PO DAILY #90 tab.sr.24h 04/27/16 Polyethylene Glycol 3350 [Miralax 119 gm Btl -] 17 gm PO DAILY PRN #90 bottle Ranolazine [Ranexa] 500 mg PO BID #180 tab.er.12h 04/27/16 Cholecalciferol (Vitamin D3) [Vitamin D3 -] 4,000 unit PO DAILY 05/31/16 Docusate Sodium [Colace -] 100 mg PO BID 05/31/16 Albuterol Sulfate Inhaler - [Ventolin HFA Inhaler -] 1 inh PO Q4H PRN 08/19/16 Glipizide [Glucotrol -] 2.5 mg PO DAILY 08/19/16 Losartan Potassium [Cozaar -] 50 mg PO DAILY tablet 08/28/16 Lactulose 10 gm PO DAILY 11/12/16 Guaifenesin/D-Methorphan Hb [Diabetic Tussin Dm -] 10 ml PO Q6H PRN #0 ml Aclidinium [place] [Tudorza -] 1 inh PO BID 02/06/17 Glipizide/Metformin HCl [Glipizide-Metformin 5-500 mg] 0.5 each PO DAILY Insulin Sliding Scale [Novolog Vial Sliding Scale -] 0 units SQ ACHS PRN Isosorbide Mononitrate [Imdur -] 90 mg PO DAILY 02/06/17 Nitroglycerin Sublingual [Nitrostat -] 0.4 mg SL ASDIR PRN 02/06/17 Pantoprazole Sodium [Protonix -] 40 mg PO DAILY 02/06/17
--- NOTE | 2017-02-07 08:05 | CONS ---
DATE OF CONSULTATION: 02/07/2017 REQUESTING PHYSICIAN: Liyah Wang M.D. CHIEF COMPLAINT: Chest pain, dyspnea. HISTORY OF PRESENT ILLNESS: The patient is an 81-year-old female of -[place] descent, well-known to our service, with known history of coronary artery disease, status post multivessel percutaneous coronary interventions, stenting, angina pectoris, diastolic left ventricular dysfunction, with chronic class I [place] Heart Association classification left ventricular failure, paroxysmal atrial fibrillation, [id number] score of 6, on Eliquis therapy, hypertensive cardiovascular disease, diabetes mellitus, hypercholesterolemia, chronic costochondritis, [facility], who [facility] with increasing left-sided chest discomfort which has been noted for the last several days. The chest discomfort was described as a sharp pain, which was exacerbated by certain movements and deep inspiration. The patient reported a cough, not productive of sputum. The patient denied any fever or chills. The patient denied any exacerbation with physical exertion. The patient continues to report dyspnea with mild to moderate physical exertion. The patient denies any orthopnea, paroxysmal nocturnal dyspnea or peripheral edema. The patient denies any palpitations, dizziness, lightheadedness or syncope. The patient continues to report persistence of fatigue and tiredness. PAST MEDICAL HISTORY: Coronary artery disease, status post multivessel percutaneous coronary intervention and stenting, angina pectoris, diastolic left ventricular dysfunction with chronic class I [place] Heart Association classification left ventricular failure, paroxysmal atrial fibrillation, CHADS-VASc score of 6, on chronic anticoagulation therapy with Eliquis, hypertensive cardiovascular disease, diabetes mellitus, hypercholesterolemia, hypothyroidism, reactive airway disease, chronic costochondritis, degenerative joint disease. SOCIAL HISTORY: Prior history of smoking. FAMILY HISTORY: Positive for coronary artery disease. ALLERGIES: PENICILLIN, OXYCODONE, and intolerance to PREDNISONE therapy administration. MEDICATIONS: [facility] acetaminophen, Eliquis, levothyroxine, meclizine (for benign positional vertigo), Toprol XL, MiraLAX, Ranexa, vitamin D, Colace, Ventolin HFA, glipizide/metformin, insulin, Cozaar, lactulose, Imdur, and Protonix (for gastroesophageal reflux disease). REVIEW OF SYSTEMS: Head and Neck: Denies headache, photophobia, blurring of vision. Respiratory: Denies hemoptysis. Cardiovascular: As noted above. Gastrointestinal: Denies nausea, vomiting, diarrhea, abdominal discomfort. Genitourinary: No symptoms reported. Musculoskeletal: History of degenerative joint disease. PHYSICAL EXAMINATION: Vital signs: Blood pressure is 118/64 mmHg. Pulse rate is 63 beats per minute. Temperature 98 degrees Fahrenheit. Head and Neck: Pupils equal and reactive to light and accommodation. Extraocular movements are intact. Anicteric sclerae. Negative JVD. No bruit appreciated. Chest: Clear to auscultation and percussion. Chest wall tenderness elicited at left 3rd, 4th and 5th costochondral junctions. Cardiovascular: S1 and S2 regular. Grade 1/6 to 2/6 systolic murmur. No clicks or gallops. Abdomen: Soft, benign. Normoactive bowel sounds. Extremities: Negative edema. Intact distal pulses. No calf tenderness. DIAGNOSTIC STUDIES: Electrocardiogram reveals sinus rhythm with T-wave abnormality. Chest x-ray report was noted. CT scan of the chest showed no evidence of pulmonary embolism. CBC revealed white blood cell count 6.5, hemoglobin 13.0, platelet count 158. Basic metabolic profile revealed sodium 141, potassium 4.0, BUN 13, creatinine 0.8, glucose 124. CPK and troponin I levels were noted. ASSESSMENT: 1. Chest pain syndrome, chest wall discomfort, costochondritis - chronic, acute exacerbation. 2. Coronary artery disease, status post percutaneous coronary intervention, multivessel stenting, history of abnormal myocardial perfusion imaging study, angina pectoris - for medical management. 3. Diastolic left ventricular dysfunction with chronic class I [place] Heart Association classification left ventricular failure, compensated/euvolemic. 4. Paroxysmal atrial fibrillation, CHADS-VASc score of 6, currently on anticoagulation therapy with Eliquis. 5. Hypertensive cardiovascular disease. 6. Diabetes mellitus. 7. Hypercholesterolemia. 8. Hypothyroidism. 9. History of reactive airway disease. 10. History of gastroesophageal reflux disease. 11. History of degenerative joint disease. RECOMMENDATIONS: 1. Continuation of Toprol-XL therapy. 2. Continuation of Ranexa and Imdur therapies. 3. Continuation of Cozaar therapy. 4. Continuation of statin therapy. 5. Continuation of Eliquis therapy, with caution and close monitoring of CBC, and would defer initiation of aspirin therapy since the patient had stenting several years ago and is stable from the coronary artery disease perspective. As outlined in prior notes from prior admissions, plan for medical therapy continuation and optimization. The above was reviewed in detail with the patient. Thank you for the kind referral. ILIANA HATCH M.D. HAYDER/[id number]
[2017-02-07] MEDS ORDERED: ISOSORBIDE MONONITRATE 60 MG TAB.SR.24H (FP) PO ONE (08:55)
[2017-02-07] MEDS ORDERED: ISOSORBIDE MONONITRATE 30 MG TAB.SR.24H (FP) PO ONE (08:55)
[2017-02-07] MEDS: DOCUSATE SODIUM 100 MG CAPSULE (FP) PO SCH (09:40)
[2017-02-07] MEDS: RANOLAZINE E.R. 500 MG TABLET (FP) PO SCH (09:41)
[2017-02-07] MEDS: APIXABAN 5 MG TABLET PO SCH (09:41)
[2017-02-07] MEDS ORDERED: LACTULOSE 20 GM/30 ML UDC (FOR ORAL USE ONLY) PO SCH (10:00)
[2017-02-07] MEDS ORDERED: ISOSORBIDE MONONITRATE 30 MG, ISOSORBIDE MONONITRATE 60 MG PO SCH (10:00)
[2017-02-07] MEDS ORDERED: LOSARTAN POTASSIUM 50 MG TABLET (FP) PO SCH (10:00)
[2017-02-07] MEDS ORDERED: ISOSORBIDE MONONITRATE 60 MG TAB.SR.24H (FP) PO SCH (10:00)
[2017-02-07] MEDS ORDERED: METOPROLOL SUCCINATE 100 MG TAB.SR.24H (FP) PO SCH (10:00)
[2017-02-07] MEDS ORDERED: CHOLECALCIFEROL (VITAMIN D3) 1,000 UNIT TABLET (FP) PO SCH (10:00)
[2017-02-07] MEDS ORDERED: LACTULOSE 10 GM PO SCH (10:00)
[2017-02-07] MEDS ORDERED: PANTOPRAZOLE 40 MG TABLET (FP) PO SCH (10:00)
[2017-02-07 10:40] VITALS: BP 140/64; PULSE 67
[2017-02-07] MEDS: ACLIDINIUM BROMIDE 400 MCG/INH AERO.POWD IH SCH (10:48)
== END 2017-02-07 11:36 ==
LOC: JER 13:30 → JERBED 20:31 → J4W 22:16
PROVIDERS: ADMIT Internal Medicine; ATTEND Internal Medicine
PROC: 3E013GC Introduction of Other Therapeutic Substance into Subcutaneous Tissue, Percutaneous Approach (ICD-10-PCS; principal; 2017-02-06)
PROC: 3E0F7GC Introduction of Other Therapeutic Substance into Respiratory Tract, Via Natural or Artificial Opening (ICD-10-PCS; 2017-02-06)
DX: R07.9 Chest pain, unspecified (principal); I10 Essential (primary) hypertension; I48.91 Unspecified atrial fibrillation; I25.110 Atherosclerotic heart disease of native coronary artery with unstable angina pectoris; I51.89 Other ill-defined heart diseases; E78.5 Hyperlipidemia, unspecified; E11.9 Type 2 diabetes mellitus without complications; E03.9 Hypothyroidism, unspecified; M48.00 Spinal stenosis, site unspecified; J44.9 Chronic obstructive pulmonary disease, unspecified; K21.9 Gastro-esophageal reflux disease without esophagitis; F03.90 Unspecified dementia, unspecified severity, without behavioral disturbance, psychotic disturbance, mood disturbance, and anxiety; Z79.4 Long term (current) use of insulin; Z95.5 Presence of coronary angioplasty implant and graft; Z86.718 Personal history of other venous thrombosis and embolism; Z86.711 Personal history of pulmonary embolism; Z87.891 Personal history of nicotine dependence; Z88.0 Allergy status to penicillin; Z88.6 Allergy status to analgesic agent; Z79.01 Long term (current) use of anticoagulants; Z79.84 Long term (current) use of oral hypoglycemic drugs
CPT/HCPCS: 36415; 71010-TC; 71260-TC; 80053; 84484; 85025; 93005; 93010; 99285-25; G0378; J1644

== ENCOUNTER 2017-03-22 01:20 | Emergency (ER) | payer OTHER ==
[2017-03-22 01:33] VITALS: BMI 31.8
--- NOTE | 2017-03-22 01:40 | PDOC ---
History of Present Illness <Shailesh Green - Last Filed: 03/22/17 05:55> - History of Present Illness Initial Comments: 82 Y/O F [facility] [facility] with significant medical hx of asthma/COPD, spinal stenosis, hypothyroidism, AFib, DM, GERD, HTN, HLD, vertigo, CAD s/p multivessel stents, diastolic dysfunction, hypothyroidism, GERD, prior PE and DVT (on Eliquis) presenting for rule out PNA. She endorses a cough slightly productive of yellow sputum for the past few weeks as wel as some occasional SOB during the same time period. Denies fevers, chills, nausea vomiting, diarrhea, or other sick symptoms. 03/22/17 06:10 <Naveen Ang - Last Filed: 03/22/17 06:25> - General Chief Complaint: Respiratory Stated Complaint: RULE OUT PNEUMONIA Time Seen by Provider: 03/22/17 01:40 Past History <Shailesh Green - Last Filed: 03/22/17 05:55> - Past Medical History Anemia: No Asthma: Yes Cardiac Disorders: Yes (CAD, Stents, angina) CVA: No COPD: Yes Dementia: Yes Diabetes: Yes GI Disorders: Yes (esophageal reflux) Disorders: No HTN: Yes Hypercholesterolemia: Yes Liver Disease: No Seizures: No Thyroid Disease: Yes (hypo) - Surgical History Abdominal Surgery: Yes Appendectomy: Yes Cardiac Surgery: Yes (STENTS X 5) Cholecystectomy: No Lung Surgery: No Neurologic Surgery: No - Immunization History Immunization Up to Date: Yes - Suicide/Smoking/Psychosocial Hx Smoking Status: No Smoking History: Never smoked Have you smoked in the past 12 months: No Number of Cigarettes Smoked Daily: 0 If you are a former smoker, when did you quit?: 30 yrs ago Cigars Per Day: 0 Information on smoking cessation initiated: No Hx Alcohol Use: No Drug/Substance Use Hx: No Substance Use Type: None Hx Substance Use Treatment: No <Naveen Ang - Last Filed: 03/22/17 06:25> - Past Medical History Allergies/Adverse Reactions: Allergies Allergy/AdvReac Type Severity Reaction Status Date / Time Penicillins Allergy Intermediate Rash Verified 03/22/17 01:30 oxycodone HCl [From Percocet] AdvReac Intermediate Verified 03/22/17 01:30 prednisone AdvReac Verified 03/22/17 01:30 Home Medications: Ambulatory Orders Acetaminophen [Tylenol .Regular Strength -] 650 mg PO Q6H PRN #120 tablet Apixaban [Eliquis -] 5 mg PO BID #180 tablet 04/27/16 Levothyroxine [Synthroid -] 50 mcg PO DAILY@0700 #90 tablet 04/27/16 Meclizine HCl [Antivert -] 12.5 mg PO Q8H PRN #90 tablet 04/27/16 Metoprolol Succinate [Toprol XL -] 100 mg PO DAILY #90 tab.sr.24h 04/27/16 Polyethylene Glycol 3350 [Miralax 119 gm Btl -] 17 gm PO DAILY PRN #90 bottle Ranolazine [Ranexa] 500 mg PO BID #180 tab.er.12h 04/27/16 Cholecalciferol (Vitamin D3) [Vitamin D3 -] 4,000 unit PO DAILY 05/31/16 Docusate Sodium [Colace -] 100 mg PO BID 05/31/16 Albuterol Sulfate Inhaler - [Ventolin HFA Inhaler -] 1 inh PO Q4H PRN 08/19/16 Glipizide [Glucotrol -] 2.5 mg PO DAILY 08/19/16 Losartan Potassium [Cozaar -] 50 mg PO DAILY tablet 08/28/16 Lactulose 10 gm PO DAILY 11/12/16 Guaifenesin/D-Methorphan Hb [Diabetic Tussin Dm -] 10 ml PO Q6H PRN #0 ml Aclidinium Burnet [Tudorza -] 1 inh PO BID 02/06/17 Glipizide/Metformin HCl [Glipizide-Metformin 5-500 mg] 0.5 each PO DAILY Insulin Sliding Scale [Novolog Vial Sliding Scale -] 0 units SQ ACHS PRN Isosorbide Mononitrate [Imdur -] 90 mg PO DAILY 02/06/17 Nitroglycerin Sublingual [Nitrostat -] 0.4 mg SL ASDIR PRN 02/06/17 Pantoprazole Sodium [Protonix -] 40 mg PO DAILY 02/06/17 Azithromycin 250 mg PO DAILY #4 tablet 03/22/17 Review of Systems - Review of Systems Constitutional: No: Chills, Diaphoresis, Fever HEENTM: No: Blurred Vision Respiratory: Yes: Cough, Shortness of Breath, Productive cough ABD/GI: No: Constipated, Nausea, Poor Appetite, Vomiting <SavPeteybaldemar - Last Filed: 03/22/17 06:25> *Physical Exam - Vital Signs Last Vital Signs Temp Pulse Resp BP Pulse Ox 66 14 136/78 97 03/22/17 01:30 03/22/17 01:30 03/22/17 01:30 03/22/17 01:30 <PeterShailesh jeffers - Last Filed: 03/22/17 05:55> - Vital Signs Last Vital Signs Temp Pulse Resp BP Pulse Ox 66 14 136/78 97 03/22/17 01:30 03/22/17 01:30 03/22/17 01:30 03/22/17 01:30 - Physical Exam General Appearance: Yes: Nourished, Appropriately Dressed HEENT: positive: EOMI, JESSICA, Normal ENT Inspection, Normal Voice Neck: positive: Normal Thyroid. negative: Tender Respiratory/Chest: positive: Chest Tender. negative: Lungs Clear (Slight crackles in bilateral lung bases.), Normal Breath Sounds Gastrointestinal/Abdominal: positive: Normal Bowel Sounds, Flat, Soft. negative : Tender Integumentary: positive: Normal Color, Warm Neurologic: positive: Fully Oriented, Alert, Normal Mood/Affect <SavPeteybaldemar - Last Filed: 03/22/17 06:25> ED Treatment Course - LABORATORY CBC & Chemistry Diagram: 03/22/17 03:06 03/22/17 03:06 - ADDITIONAL ORDERS Additional order review: Laboratory Results 03/22/17 03:06 Sodium 140 Potassium 4.5 Chloride 105 Carbon Dioxide 29 Anion Gap 6 L BUN 15 Creatinine 1.0 D Creat Clearance w eGFR 52.95 Random Glucose 121 H Calcium 9.1 Total Bilirubin 0.6 AST 28 D ALT 16 D Alkaline Phosphatase 47 D Total Protein 7.6 Albumin 3.4 03/22/17 03:06 RBC 4.10 MCV 95.7 MCHC 33.6 RDW 13.2 MPV 10.8 D Neutrophils % No Result Required. Lymphocytes % No Result Required. <Shailesh Green - Last Filed: 03/22/17 05:55> - LABORATORY CBC & Chemistry Diagram: 03/22/17 03:06 03/22/17 03:06 <Naveen Ang - Last Filed: 03/22/17 06:25> Medical Decision Making - Medical Decision Making 82 year old female with multiple comorbidities presenting with productive cough , afebrile, without elevated WBC> CXR clear. Will send patient back to [facility] with azithromycin. 03/22/17 06:23 <Naveen Ang - Last Filed: 03/22/17 06:25> *DC/Admit/Observation/Transfer - Discharge Dispostion Admit: No <Shailesh Green - Last Filed: 03/22/17 05:55> <Naveen Ang - Last Filed: 03/22/17 06:25> Diagnosis at time of Disposition: Cough - Discharge Dispostion Disposition: LONG-TERM FACILITY Condition at time of disposition: Stable - Prescriptions Prescriptions: Azithromycin 250 mg PO DAILY #4 tablet - Referrals Referrals: Liyah Wang [Staff Physician] - - Patient Instructions Printed Discharge Instructions: DI for Cough -- Adult Additional Instructions: Return to the emergency department immediately with ANY new, persistent or worsening symptoms including fever/chils, shortness of breath, chets pain or other concerns. Continue azithromycin 250mg daily for 4 more days. You MUST call and follow up with your doctor in 3-4 days for further evaluation of your symptoms. Results were discussed with you. Please make sure your doctor reviews the results of your emergency evaluation. Print Language: CITIZEN OF [place]
[2017-03-22 03:10] LABS: MCH 32.1 pg (25.7-33.7); MCHC 33.6 g/dl (32.0-36.0); MEAN CELL VOLUME 95.7 fl (80-96); MEAN PLT VOLUME 10.8 fl (7.5-11.1); PLATELET COUNT 168 K/MM3 (134-434); RDW 13.2 % (11.6-15.6); WHITE BLOOD COUNT 5.8 K/mm3 (4.0-10.0)
--- NOTE | 2017-03-22 03:13 | PDOC ---
Attending Attestation - Resident Resident Name: Naveen Ang - ED Attending Attestation I have performed the following: I have examined & evaluated the patient, The case was reviewed & discussed with the resident, I agree w/resident's findings & plan, Exceptions are as noted - HPI HPI: 03/22/17 03:09 82y F hx of CAD s/p stents x 5, copd, dementia, DM, htn, hl, hypothyroidism afib on eliquis, presents with complaint of possible pna. Pt had an xray at [facility] that showed LL pna. pt does complain of a cough and sob, but states it has been going on for years. Per [facility] records, she had an xray that showed an infiltrate so was sent to the ED for further evaluation. On exam isis pts vitals reiewed o2 sat normal the pts exam is essentially normal with clear lungs pt in n oacute respiratory distress will ck lbas, repeat xray even if pna, consider possibel outpatient management based on clinical appearance. - Physicial Exam PE: 03/22/17 08:09 see above - Medical Decision Making 03/22/17 05:53 labs reviewed unremrakable w/o leukocytosis vitals unremarkble no significant infiltates on cxr will dc the pt with azithromycin with outpatient management case dw dr. Wang by Dr. Ang and they agree with management I discussed the physical exam findings, ancillary test results and final diagnoses with the patient. I answered all of the patient's questions. The patient was satisfied with the care received and felt comfortable with the discharge plan and treatment plan. The patient will call their primary care physician within 24 hours to arrange follow-up and will return to the Emergency Department with any new, persistent or worsening symptoms.
[2017-03-22 03:38] LABS: PLATELET ESTIMATE ADEQUATE (NORMAL)
[2017-03-22 03:39] LABS: ALBUMIN 3.4 g/dl (3.4-5.0); ANION GAP 6 (8-16); CALCIUM 9.1 mg/dL (8.5-10.1); CO2 29 mmol/L (21-32); GLUCOSE,RANDOM 121 mg/dL (74-106); REACTIVE LYMPHOCYTES 3 % (0-80); SGPT/ALT 16 U/L (12-78); TOTAL CELLS COUNTED 100
[2017-03-22 03:41] LABS: ALK PHOS 47 U/L (45-117); BILIRUBIN,TOTAL 0.6 mg/dL (0.2-1.0); TOT PROT 7.6 g/dl (6.4-8.2)
[2017-03-22 03:42] LABS: SGOT/AST 28 U/L (15-37)
[2017-03-22] MEDS ORDERED: AZITHROMYCIN 500 MG TABLET PO ONE (05:46)
[2017-03-22] MEDS ORDERED: AZITHROMYCIN 250 MG TABLET ONE (06:17)
[2017-03-22 08:02] VITALS: BP 132/74; PULSE 88; TEMP 98.2
== END 2017-03-22 08:01 ==
LOC: JER 01:20
DX: R05 Cough (principal); J45.909 Unspecified asthma, uncomplicated; E11.9 Type 2 diabetes mellitus without complications; I10 Essential (primary) hypertension; E78.00 Pure hypercholesterolemia, unspecified; Z95.5 Presence of coronary angioplasty implant and graft; Z87.891 Personal history of nicotine dependence
CPT/HCPCS: 36415; 71010-TC; 80053; 85025; 99282-25

== ENCOUNTER 2018-05-19 14:00 | Observation (INO) | payer OTHER ==
--- NOTE | 2018-05-19 15:03 | PDOC ---
History of Present Illness - General Chief Complaint: Pain Stated Complaint: HIP PAIN Time Seen by Provider: 05/19/18 14:15 - History of Present Illness Initial Comments: 05/19/18 15:00 83 yo F with h/o HTN, DM, COPD, dementia, hypothyroidism, CAD s/p stent placement x 5, A-fib on Eliquis who p/w BL hip and left shoulder pain s/p fall. Patient poor historian with dementia. Patient communicative and verbal at baseline. States that she fell, but does not recall mechanism opr onset of fall , or recall head trauma. Now with persistent BL hip and right shoulder pain, but unable to characterize type of pain, or duration of symptoms. [facility] ([address] [place] [address]) reports patient sustained unwitnessed fall yesterday when up ambulating with assistive device. Patient ambulating today with left sided limping gait. Patient denies MOSQUERA, neck pain, neck stiffness, palpitations, wheezing, orthopnea , leg swelling, N/V, F,C, CP, SOB, urinary complaints, abdominal pain, diarrhea , constipation, BPR, hematuria, lightheadedness, weakness, sensory changes. PMHx: as noted above ROS: as noted Allergies: NKDA PMD: Liyah Androne Past History - Past Medical History Allergies/Adverse Reactions: Allergies Allergy/AdvReac Type Severity Reaction Status Date / Time Penicillins Allergy Intermediate Rash Verified 05/19/18 14:08 oxycodone HCl [From Percocet] AdvReac Intermediate Verified 05/19/18 14:08 prednisone AdvReac Verified 05/19/18 14:08 Home Medications: Ambulatory Orders Acetaminophen [Tylenol .Regular Strength -] 650 mg PO Q6H PRN #120 tablet Apixaban [Eliquis -] 5 mg PO BID #180 tablet 04/27/16 Levothyroxine [Synthroid -] 50 mcg PO DAILY@0700 #90 tablet 04/27/16 Metoprolol Succinate [Toprol XL -] 100 mg PO DAILY #90 tab.sr.24h 04/27/16 Polyethylene Glycol 3350 [Miralax 119 gm Btl -] 17 gm PO DAILY PRN #90 bottle Ranolazine [Ranexa] 500 mg PO BID #180 tab.er.12h 04/27/16 Cholecalciferol (Vitamin D3) [Vitamin D3 -] 4,000 unit PO DAILY 05/31/16 Docusate Sodium [Colace -] 100 mg PO BID 05/31/16 Albuterol Sulfate Inhaler - [Ventolin HFA Inhaler -] 1 inh PO Q4H PRN 08/19/16 Losartan Potassium [Cozaar -] 50 mg PO DAILY tablet 08/28/16 Lactulose 10 gm PO DAILY 11/12/16 Glipizide/Metformin HCl [Glipizide-Metformin 5-500 mg] 0.5 each PO DAILY Insulin Sliding Scale [Novolog Vial Sliding Scale -] 0 units SQ ACHS PRN Isosorbide Mononitrate [Imdur -] 90 mg PO DAILY 02/06/17 Nitroglycerin Sublingual [Nitrostat -] 0.4 mg SL ASDIR PRN 02/06/17 Folic Acid 1 mg PO DAILY 05/19/18 Anemia: No Asthma: Yes Cardiac Disorders: Yes (CAD, Stents, angina) CVA: No COPD: Yes Dementia: Yes Diabetes: Yes GI Disorders: Yes (esophageal reflux) Disorders: No HTN: Yes Hypercholesterolemia: Yes Liver Disease: No Seizures: No Thyroid Disease: Yes (hypo) - Surgical History Abdominal Surgery: Yes Appendectomy: Yes Cardiac Surgery: Yes (STENTS X 5) Cholecystectomy: No Lung Surgery: No Neurologic Surgery: No - Immunization History Immunization Up to Date: Yes - Suicide/Smoking/Psychosocial Hx Smoking Status: No Smoking History: Never smoked Have you smoked in the past 12 months: No Number of Cigarettes Smoked Daily: 0 If you are a former smoker, when did you quit?: 30 yrs ago Cigars Per Day: 0 Hx Alcohol Use: No Drug/Substance Use Hx: No Substance Use Type: None Hx Substance Use Treatment: No Review of Systems - Review of Systems Comments:: 05/19/18 15:01 GENERAL/CONSTITUTIONAL: No fever or chills. No weakness. HEAD, EYES, EARS, NOSE AND THROAT: No change in vision. No ear pain or discharge. No sore throat. CARDIOVASCULAR: No chest pain or shortness of breath RESPIRATORY: No cough, wheezing, or hemoptysis. GASTROINTESTINAL: No nausea, vomiting, diarrhea or constipation. GENITOURINARY: No dysuria, frequency, or change in urination. MUSCULOSKELETAL: + BL hip and left shoulder pain. No joint or muscle swelling. No neck or back pain. SKIN: No rash NEUROLOGIC: No headache, vertigo, loss of consciousness, or change in strength/ sensation. ENDOCRINE: No increased thirst. No abnormal weight change HEMATOLOGIC/LYMPHATIC: No anemia, easy bleeding, or history of blood clots. ALLERGIC/IMMUNOLOGIC: No hives or skin allergy. *Physical Exam - Physical Exam Comments: 05/19/18 15:01 GENERAL: Awake, alert, oriented to self, but not place, and date, in no acute distress HEAD: No signs of trauma, normocephalic, atraumatic EYES: PERRLA, EOMI, sclera anicteric, conjunctiva clear ENT: Auricles normal inspection, hearing grossly normal, nares patent, oropharynx clear without exudates. Moist mucosa NECK: Normal ROM, supple, no lymphadenopathy, JVD, or masses LUNGS: No distress, speaks full sentences, clear to auscultation bilaterally HEART: Regular rate and rhythm, normal S1 and S2, no murmurs, rubs or gallops, peripheral pulses normal and equal bilaterally. ABDOMEN: Soft, nontender, normoactive bowel sounds. No guarding, no rebound. No masses EXTREMITIES : + Left and right greater trochanter ttp. Limitied ROM 2/2 pain. Palpable and symmetric PT pulses. Neg lower limb length discrepancy or obvious bony deofrmity. 1+ pitting edema BL LE. + L AC joint ttp left shoulder, with pain on passive and active adduction. 5/5 UE strength.Normal inspection. No clubbing or cyanosis. NEUROLOGICAL: Cranial nerves II through XII grossly intact. Normal speech, no focal sensorimotor deficits SKIN: Warm, Dry, normal turgor, no rashes or lesions noted Medical Decision Making - Medical Decision Making 05/19/18 15:56 83 yo F with h/o HTN, DM, COPD, dementia, hypothyroidism, CAD s/p stent placement x 5, A-fib on Eliquis who p/w BL hip and left shoulder pain s/p fall. BP 179/66, vitals otherwise wnl, AF, GCS 15. + BL greater torchanteric ttp, with limited ROM 2/2 pain. R/o fracture or dislocation. Absent neuro deficits on physical exam. R/o intracranial hemorrhage, hematoma, skull fracture. C- SPINE NEG NEXUS. ED Course: BL HIP RAD, CTH Tylenol 05/19/18 19:01 CTH: No acute change. BL pelvic RAD: Unremarkable Will ambulate and dispo. Signed out to night team. *DC/Admit/Observation/Transfer Diagnosis at time of Disposition: Fall Qualifiers: Encounter type: initial encounter Qualified Code(s): W19.XXXA - Unspecified fall, initial encounter - Discharge Dispostion Disposition: HOME Condition at time of disposition: Stable Decision to Admit order: No - Referrals Referrals: Liyah Wang [Primary Care Provider] - - Patient Instructions Printed Discharge Instructions: How to Prevent Falls Additional Instructions: Please return to the emergency department with any new or worsening symptoms or concerns. Please follow up with your primary care physician within 72 hours. - Post Discharge Activity - Attestations Physician Attestion: 05/19/18 15:02 I attest to the information provided in this note.
[2018-05-19] MEDS ORDERED: ACETAMINOPHEN 325 MG TABLET (FP) PO ONE (16:03)
[2018-05-19] MEDS ORDERED: ACETAMINOPHEN 325 MG TABLET (FP) ONE (16:06)
--- NOTE | 2018-05-19 18:51 | PDOC ---
Attending Attestation - Resident Resident Name: Juan Baptiste - ED Attending Attestation I have performed the following: I have examined & evaluated the patient, The case was reviewed & discussed with the resident, I agree w/resident's findings & plan, Exceptions are as noted - HPI HPI: 05/19/18 18:50 83 F with h/o HTN, DM, COPD, dementia, hypothyroidism, CAD s/p stent placement x 5, A-fib on Eliquis who p/w BL hip pain after falling yesterday. Pt states she slipped out of bed. Does not recall if she hit her head or not. Now complains of pain in both hips, mostly in her L. She has been able to ambulate today with walker as usual. Denies MOSQUERA/N/V. Denies neck or back pain. - Physicial Exam PE: 05/19/18 18:52 "GENERAL: Awake, alert, and fully oriented, in no acute distress. HEAD: No signs of trauma EYES: PERRLA, EOMI, sclera anicteric, conjunctiva clear ENT: Auricles normal inspection, hearing grossly normal, nares patent, oropharynx clear without exudates. Moist mucosa NECK: Nontender, no stepoffs, Normal ROM, supple, no lymphadenopathy, JVD, or masses LUNGS: Breath sounds equal, clear to auscultation bilaterally. No wheezes, and no crackles HEART: Regular rate and rhythm, normal S1 and S2, no murmurs, rubs or gallops ABDOMEN: Soft, nontender, normoactive bowel sounds. No guarding, no rebound. No masses EXTREMITIES: + L hip TTP, no deformity, No clubbing or cyanosis. No cords, erythema, or tenderness NEUROLOGICAL: Cranial nerves II through XII intact. 5/5 strength and sensation in all extremities, Normal speech SKIN: Warm, Dry, normal turgor, no rashes or lesions noted. - Medical Decision Making 05/19/18 18:52 83 F with fall today, now complaining of bilateral hip pain. No external signs of trauma. - CT head - XR hips/pelvis - Attempt to ambulate
--- NOTE | 2018-05-19 19:28 | PDOC ---
*Physical Exam - Vital Signs Last Vital Signs Temp Pulse Resp BP Pulse Ox 98.4 F 66 22 H 179/66 H 97 05/19/18 15:32 05/19/18 15:32 05/19/18 15:32 05/19/18 15:32 05/19/18 15:32 ED Treatment Course - LABORATORY CBC & Chemistry Diagram: 05/19/18 20:50 05/19/18 20:50 - Medications Given in the ED: ED Medications Discontinued Medications Generic Name Dose Route Start Last Admin Trade Name Jose PRN Reason Stop Dose Admin Acetaminophen 650 mg 05/19/18 16:03 05/19/18 16:12 Tylenol - PO 05/19/18 16:04 650 mg ONCE ONE Administration Medical Decision Making - Medical Decision Making 05/19/18 19:27 Pt signed out to me by day team, Dr. Baptiste. The patient is an 83F with MMP who presents to the ER after sustaining a fall. All labs and imaging normal. Pt requires ambulation and reassessment. 05/19/18 20:10 Pt unable to ambulate. Pt has point tenderness in high L spine. Will CT L spine and hip. 05/19/18 21:36 LS Spine and pelvis CT identify no fracture. Pt is still unable to ambulate. Will admit for PT/OT evaluation. 05/19/18 21:46 Case d/w Dr. Wang who agrees to keep her for observation. Orders placed. *DC/Admit/Observation/Transfer Diagnosis at time of Disposition: Inability to ambulate due to multiple joints Fall Qualifiers: Encounter type: initial encounter Qualified Code(s): W19.XXXA - Unspecified fall, initial encounter - Discharge Dispostion Condition at time of disposition: Guarded Decision to Admit order: Yes - Referrals Referrals: Liyha Wang [Primary Care Provider] - - Patient Instructions Printed Discharge Instructions: How to Prevent Falls Additional Instructions: Please return to the emergency department with any new or worsening symptoms or concerns. Please follow up with your primary care physician within 72 hours. - Post Discharge Activity
[2018-05-19 21:00] LABS: BASO % 1.4 % (0-2.0); EOS % 4.1 % (0-4.5); HEMATOCRIT 38.4 % (32.4-45.2); HEMOGLOBIN 13.4 GM/dL (10.7-15.3); MCH 32.7 pg (25.7-33.7); MCHC 34.7 g/dl (32.0-36.0); MEAN CELL VOLUME 94.1 fl (80-96); MEAN PLT VOLUME 10.1 fl (7.5-11.1); MONO % 7.5 % (3.8-10.2); PLATELET COUNT 164 K/MM3 (134-434); RBC 4.08 M/mm3 (3.60-5.2); WHITE BLOOD COUNT 4.7 K/mm3 (4.0-10.0)
[2018-05-19 21:37] LABS: ALBUMIN 3.3 g/dl (3.4-5.0); ALK PHOS 43 U/L (45-117); ANION GAP 9 MMOL/L (8-16); BILIRUBIN,TOTAL 0.6 mg/dL (0.2-1); BLOOD UREA NITROGEN 13 mg/dL (7-18); CALCIUM 8.8 mg/dL (8.5-10.1); CHLORIDE 107 mmol/L (98-107); CO2 25 mmol/L (21-32); CREATININE 0.9 mg/dL (0.55-1.3); GLUCOSE,RANDOM 151 mg/dL (74-106); POTASSIUM 3.8 mmol/L (3.5-5.1); SGOT/AST 17 U/L (15-37); SGPT/ALT 15 U/L (13-61); SODIUM 141 mmol/L (136-145); TOT PROT 6.8 g/dl (6.4-8.2)
[2018-05-19] MEDS ORDERED: ALBUTEROL SO4 8 GM HFA INHALER IH PRN (22:19)
[2018-05-19] MEDS ORDERED: POLYETHYLENE GLYCOL 3350 119 GM BTL PO PRN (22:19)
[2018-05-19] MEDS ORDERED: NITROGLYCERIN SUBLINGUAL 1/150 0.4 MG TAB SL PRN (22:19)
[2018-05-20 00:44] VITALS: BMI 29.6
[2018-05-20] MEDS: ACETAMINOPHEN 325 MG TABLET (FP) PO PRN (04:02)
[2018-05-20] MEDS: metFORMIN HCL 500 MG TABLET (FP) PO SCH (06:16)
[2018-05-20] MEDS: LEVOTHYROXINE NA 50 MCG TABLET (FP) PO SCH (06:16)
[2018-05-20] MEDS: glipiZIDE 5 MG TABLET (FP) PO SCH (06:16)
[2018-05-20] MEDS: INSULIN SLIDING SCALE (NOVOLOG) 1 VIAL SQ SCH ×4 (06:17→22:02)
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
--- NOTE | 2018-05-20 09:13 | CONSULT ---
Consult - text type - Consultation Consultation Note: Neurology History of Present Illness 83 yo F with h/o HTN, DM, COPD, dementia, hypothyroidism, CAD s/p stent placement x 5, A-fib on Eliquis who p/w BL hip and left shoulder pain s/p fall. Patient poor historian with dementia. Patient communicative and verbal at baseline and admitted reportedly for fall but does not recall mechanism or head trauma. Reportedly with persistent BL hip and right shoulder pain, but unable to characterize type of pain, or duration of symptoms. Ambulates with assistive device per notes. Limited historian during my evaluation. CT head completed and without bleed. 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 L spine CT also reviewed, no fracture but marked central spinal stenosis noted. Ortho consulted. Not likely good candidate for surgical spinal intervention given age and comorbidities but will refer to surgeons regarding risk and benefit. Patient denies MOSQUERA, neck pain, neck stiffness, palpitations, wheezing, orthopnea , leg swelling, N/V, F,C, CP, SOB, urinary complaints, abdominal pain, diarrhea , constipation, BPR, hematuria, lightheadedness, weakness, sensory changes. Past History - Past Medical History Allergies/Adverse Reactions: Allergies Allergy/AdvReac Type Severity Reaction Status Date / Time Penicillins Allergy Intermediate Rash Verified 05/19/18 14:08 oxycodone HCl [From Percocet] AdvReac Intermediate Verified 05/19/18 14:08 prednisone AdvReac Verified 05/19/18 14:08 Home Medications: Ambulatory Orders Acetaminophen [Tylenol .Regular Strength -] 650 mg PO Q6H PRN #120 tablet Apixaban [Eliquis -] 5 mg PO BID #180 tablet 04/27/16 Levothyroxine [Synthroid -] 50 mcg PO DAILY@0700 #90 tablet 04/27/16 Metoprolol Succinate [Toprol XL -] 100 mg PO DAILY #90 tab.sr.24h 04/27/16 Polyethylene Glycol 3350 [Miralax 119 gm Btl -] 17 gm PO DAILY PRN #90 bottle Ranolazine [Ranexa] 500 mg PO BID #180 tab.er.12h 04/27/16 Cholecalciferol (Vitamin D3) [Vitamin D3 -] 4,000 unit PO DAILY 05/31/16 Docusate Sodium [Colace -] 100 mg PO BID 05/31/16 Albuterol Sulfate Inhaler - [Ventolin HFA Inhaler -] 1 inh PO Q4H PRN 08/19/16 Losartan Potassium [Cozaar -] 50 mg PO DAILY tablet 08/28/16 Lactulose 10 gm PO DAILY 11/12/16 Glipizide/Metformin HCl [Glipizide-Metformin 5-500 mg] 0.5 each PO DAILY Insulin Sliding Scale [Novolog Vial Sliding Scale -] 0 units SQ ACHS PRN Isosorbide Mononitrate [Imdur -] 90 mg PO DAILY 02/06/17 Nitroglycerin Sublingual [Nitrostat -] 0.4 mg SL ASDIR PRN 02/06/17 Folic Acid 1 mg PO DAILY 05/19/18 Anemia: No Asthma: Yes Cardiac Disorders: Yes (CAD, Stents, angina) CVA: No COPD: Yes Dementia: Yes Diabetes: Yes GI Disorders: Yes (esophageal reflux) Disorders: No HTN: Yes Hypercholesterolemia: Yes Liver Disease: No Seizures: No Thyroid Disease: Yes (hypo) - Surgical History Abdominal Surgery: Yes Appendectomy: Yes Cardiac Surgery: Yes (STENTS X 5) Cholecystectomy: No Lung Surgery: No Neurologic Surgery: No - Immunization History Immunization Up to Date: Yes - Suicide/Smoking/Psychosocial Hx Smoking Status: No Smoking History: Never smoked Have you smoked in the past 12 months: No Number of Cigarettes Smoked Daily: 0 If you are a former smoker, when did you quit?: 30 yrs ago Cigars Per Day: 0 Hx Alcohol Use: No Drug/Substance Use Hx: No Substance Use Type: None Hx Substance Use Treatment: No Review of Systems GENERAL/CONSTITUTIONAL: No fever or chills. No weakness. HEAD, EYES, EARS, NOSE AND THROAT: No change in vision. No ear pain or discharge. No sore throat. CARDIOVASCULAR: No chest pain or shortness of breath RESPIRATORY: No cough, wheezing, or hemoptysis. GASTROINTESTINAL: No nausea, vomiting, diarrhea or constipation. GENITOURINARY: No dysuria, frequency, or change in urination. MUSCULOSKELETAL: + BL hip and left shoulder pain. No joint or muscle swelling. No neck or back pain. SKIN: No rash NEUROLOGIC: No headache, vertigo, loss of consciousness, or change in strength/ sensation. ENDOCRINE: No increased thirst. No abnormal weight change HEMATOLOGIC/LYMPHATIC: No anemia, easy bleeding, or history of blood clots. ALLERGIC/IMMUNOLOGIC: No hives or skin allergy. *Physical Exam GENERAL: Awake, alert, oriented to self, but not place, and date, in no acute distress HEAD: No signs of trauma, normocephalic, atraumatic EYES: PERRLA, EOMI, sclera anicteric, conjunctiva clear ENT: Auricles normal inspection, hearing grossly normal, nares patent, oropharynx clear without exudates. Moist mucosa NECK: Normal ROM, supple, no lymphadenopathy, JVD, or masses LUNGS: No distress, speaks full sentences, clear to auscultation bilaterally HEART: Regular rate and rhythm, normal S1 and S2, no murmurs, rubs or gallops, peripheral pulses normal and equal bilaterally. ABDOMEN: Soft, nontender, normoactive bowel sounds. No guarding, no rebound. No masses EXTREMITIES : + Left and right greater trochanter ttp. Limitied ROM 2/2 pain. Palpable and symmetric PT pulses. Neg lower limb length discrepancy or obvious bony deofrmity. 1+ pitting edema BL LE. + L AC joint ttp left shoulder, with pain on passive and active adduction. 5/5 UE strength.Normal inspection. No clubbing or cyanosis. NEUROLOGICAL: Cranial nerves II through XII grossly intact. Normal speech, no focal sensorimotor deficits, moves extremities grossly, limited effort 2/2 pain SKIN: Warm, Dry, normal turgor, no rashes or lesions noted CBCD WBC 4.7 K/mm3 (4.0-10.0) 05/19/18 20:50 RBC 4.08 M/mm3 (3.60-5.2) 05/19/18 20:50 Hgb 13.4 GM/dL (10.7-15.3) 05/19/18 20:50 Hct 38.4 % (32.4-45.2) 05/19/18 20:50 MCV 94.1 fl (80-96) 05/19/18 20:50 MCHC 34.7 g/dl (32.0-36.0) 05/19/18 20:50 RDW 13.0 % (11.6-15.6) 05/19/18 20:50 Plt Count 164 K/MM3 (134-434) 05/19/18 20:50 MPV 10.1 fl (7.5-11.1) 05/19/18 20:50 CMP Sodium 141 mmol/L (136-145) 05/19/18 20:50 Potassium 3.8 mmol/L (3.5-5.1) 05/19/18 20:50 Chloride 107 mmol/L (98-107) 05/19/18 20:50 Carbon Dioxide 25 mmol/L (21-32) 05/19/18 20:50 Anion Gap 9 MMOL/L (8-16) 05/19/18 20:50 BUN 13 mg/dL (7-18) 05/19/18 20:50 Creatinine 0.9 mg/dL (0.55-1.3) 05/19/18 20:50 Creat Clearance w eGFR 59.65 (>60) 05/19/18 20:50 Random Glucose 151 mg/dL (74-106) H 05/19/18 20:50 Calcium 8.8 mg/dL (8.5-10.1) 05/19/18 20:50 Total Bilirubin 0.6 mg/dL (0.2-1) 05/19/18 20:50 AST 17 U/L (15-37) 05/19/18 20:50 ALT 15 U/L (13-61) 05/19/18 20:50 Alkaline Phosphatase 43 U/L (45-117) L 05/19/18 20:50 Total Protein 6.8 g/dl (6.4-8.2) 05/19/18 20:50 Albumin 3.3 g/dl (3.4-5.0) L 05/19/18 20:50 Medical Decision Making 83 yo F with h/o HTN, DM, COPD, dementia, hypothyroidism, CAD s/p stent placement x 5, A-fib on Eliquis who p/w BL hip and left shoulder pain s/p fall. Patient poor historian with dementia. Patient communicative and verbal at baseline and admitted reportedly for fall but does not recall mechanism or head trauma. Reportedly with persistent BL hip and right shoulder pain, but unable to characterize type of pain, or duration of symptoms. Ambulates with assistive device per notes. Limited historian during my evaluation. CT head completed and without bleed. 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 L spine CT also reviewed, no fracture but marked central spinal stenosis noted. Ortho consulted. Not likely good candidate for surgical spinal intervention given age and comorbidities but will refer to surgeons regarding risk and benefit. Monitor blood pressure, maintain normal range. Monitor glucose, maintain eugylcemic range. Needs physical therapy and use of assistive device. May benefit from short term rehab. Fall precautions. DVT ppx.
[2018-05-20] MEDS ORDERED: PATIENT'S OWN MEDICATION (NON-FORMULARY) (Glipizide/Metformin Hcl [Glipizide-Metformin 5-5 PO SCH (10:00)
[2018-05-20] MEDS: ISOSORBIDE MONONITRATE 30 MG TAB.SR.24H (FP) PO SCH (10:20)
[2018-05-20] MEDS: FOLIC ACID 1 MG TABLET (FP) PO SCH (10:20)
[2018-05-20] MEDS: LOSARTAN POTASSIUM 50 MG TABLET (FP) PO SCH (10:20)
[2018-05-20] MEDS: DOCUSATE SODIUM 100 MG CAPSULE (FP) PO SCH ×2 (10:21→22:02)
[2018-05-20] MEDS: RANOLAZINE E.R. 500 MG TABLET (FP) PO SCH ×2 (10:21→22:02)
[2018-05-20] MEDS: APIXABAN 5 MG TABLET PO SCH ×2 (10:21→22:02)
[2018-05-20] MEDS: CHOLECALCIFEROL (VITAMIN D3) 1,000 UNIT TABLET (FP) PO SCH (10:21)
--- NOTE | 2018-05-20 10:21 | PN ---
Progress Note (short form) - Note Progress Note: Pt seen and examined. She is an 83 year old female patient 1-2 days s/p fall. Initially she complained of moderate to severe pain in the left hip and pelvis area. This morning she states 90% of her pain is gone. She can ambulate, WBAT with much less pain. PE B/L are NVI. Excellent/Nl ROM throughout both LE with no pain in the hips, pelvis, knees, ankles, feet. No LE deformity, malrotation, or shortening. No pain in the hips or pelvis with log rolling or axial load. Overall PE is normal, orthopedically Imp 1-2 days s/p fall, left hip contusion, now much better. Rec Can DC (transfer back to [place]) today from an ortho pov. P.T. if needed, can be done as an out pt. Follow up PRN.
[2018-05-20] MEDS: LACTULOSE 20 GM/30 ML UDC (FOR ORAL USE ONLY) PO SCH (10:35)
[2018-05-21] MEDS: INSULIN SLIDING SCALE (NOVOLOG) 1 VIAL SQ SCH ×4 (06:09→21:46)
[2018-05-21] MEDS: metFORMIN HCL 500 MG TABLET (FP) PO SCH (06:14)
[2018-05-21] MEDS: glipiZIDE 5 MG TABLET (FP) PO SCH (06:15)
[2018-05-21] MEDS: LEVOTHYROXINE NA 50 MCG TABLET (FP) PO SCH (06:15)
--- NOTE | 2018-05-21 07:20 | DS ---
Physical Examination Vital Signs: Vital Signs Temperature 98.3 F 05/20/18 17:00 Pulse Rate 74 05/20/18 21:00 Respiratory Rate 20 05/21/18 06:00 Blood Pressure 140/60 05/20/18 21:00 O2 Sat by Pulse Oximetry (%) 98 05/21/18 06:00 Findings/Remarks: pt feels better walked with walker and PT - seems more confused though; will check UA UCx if stable DC to [place] d/w staff Constitutional: Yes: No Distress, Calm Eyes: Yes: Conjunctiva Clear HENT: Yes: Atraumatic Neck: Yes: Supple Cardiovascular: Yes: Regular Rate and Rhythm Respiratory: Yes: CTA Bilaterally Gastrointestinal: Yes: Soft. No: Distention Renal/: No: CVA Tenderness - Left, CVA Tenderness - Right, Hematuria Musculoskeletal: No: Joint Stiffness, Joint Swelling Extremities: No: Cold, Cool, Cyanosis Edema: No Integumentary: No: Rash, Venous Stasis Changes Neurological: Yes: WNL, Alert. No: Oriented ...Motor Strength: WNL Psychiatric: Yes: WNL, Alert. No: Oriented, Agitated, Suicidal Ideation Labs: CBC, BMP 05/19/18 20:50 05/19/18 20:50 Discharge Summary Reason For Visit: ARTHRALGIA OF HIP,FALL AT HOME Current Active Problems Fall (Acute) Inability to ambulate due to multiple joints (Acute) Procedures: Principal: admitted after a fall and hip / jointys pains unable to walk - placed in [facility] Other Procedures: CT and xrays negative for fractures; pain meds prn;. seen by neurology and ortho, PT rehab; Hospital Course: improved with above; slightly more confused than usual ?change in place? but need r/o UTI; check UA, UCX; if stable DC back to [place] and f/u in [place]; falls PFX. Condition: Guarded - Instructions Diet, Activity, Other Instructions: Please return to the emergency department with any new or worsening symptoms or concerns. Please follow up with your primary care physician within 72 hours. falls PFX, PT rehab in [place] Referrals: Liyah Wang [Primary Care Provider] - Disposition: [facility] - Home Medications Comprehensive Discharge Medication List: Ambulatory Orders Acetaminophen [Tylenol .Regular Strength -] 650 mg PO Q6H PRN #120 tablet Apixaban [Eliquis -] 5 mg PO BID #180 tablet 04/27/16 Levothyroxine [Synthroid -] 50 mcg PO DAILY@0700 #90 tablet 04/27/16 Metoprolol Succinate [Toprol XL -] 100 mg PO DAILY #90 tab.sr.24h 04/27/16 Polyethylene Glycol 3350 [Miralax 119 gm Btl -] 17 gm PO DAILY PRN #90 bottle Ranolazine [Ranexa] 500 mg PO BID #180 tab.er.12h 04/27/16 Cholecalciferol (Vitamin D3) [Vitamin D3 -] 4,000 unit PO DAILY 05/31/16 Docusate Sodium [Colace -] 100 mg PO BID 05/31/16 Albuterol Sulfate Inhaler - [Ventolin HFA Inhaler -] 1 inh PO Q4H PRN 08/19/16 Losartan Potassium [Cozaar -] 50 mg PO DAILY tablet 08/28/16 Lactulose 10 gm PO DAILY 11/12/16 Glipizide/Metformin HCl [Glipizide-Metformin 5-500 mg] 0.5 each PO DAILY Insulin Sliding Scale [Novolog Vial Sliding Scale -] 0 units SQ ACHS PRN Isosorbide Mononitrate [Imdur -] 90 mg PO DAILY 02/06/17 Nitroglycerin Sublingual [Nitrostat -] 0.4 mg SL ASDIR PRN 02/06/17 Folic Acid 1 mg PO DAILY 05/19/18
[2018-05-21] MEDS: FOLIC ACID 1 MG TABLET (FP) PO SCH (11:21)
[2018-05-21] MEDS: RANOLAZINE E.R. 500 MG TABLET (FP) PO SCH ×2 (11:21→21:45)
[2018-05-21] MEDS: ISOSORBIDE MONONITRATE 30 MG TAB.SR.24H (FP) PO SCH (11:21)
[2018-05-21] MEDS: DOCUSATE SODIUM 100 MG CAPSULE (FP) PO SCH ×2 (11:21→21:45)
[2018-05-21] MEDS: APIXABAN 5 MG TABLET PO SCH ×2 (11:21→21:45)
[2018-05-21] MEDS: LOSARTAN POTASSIUM 50 MG TABLET (FP) PO SCH (11:21)
[2018-05-21] MEDS: LACTULOSE 20 GM/30 ML UDC (FOR ORAL USE ONLY) PO SCH (11:22)
[2018-05-21] MEDS: CHOLECALCIFEROL (VITAMIN D3) 1,000 UNIT TABLET (FP) PO SCH (11:22)
[2018-05-21] MEDS ORDERED: INSULIN (NOVOLOG) ASPART 100 UNITS/ML 10ML VIAL ONE (20:57)
[2018-05-22] MEDS: metFORMIN HCL 500 MG TABLET (FP) PO SCH (06:19)
[2018-05-22] MEDS: LEVOTHYROXINE NA 50 MCG TABLET (FP) PO SCH (06:20)
[2018-05-22] MEDS: glipiZIDE 5 MG TABLET (FP) PO SCH (06:20)
[2018-05-22] MEDS: ACETAMINOPHEN 325 MG TABLET (FP) PO PRN (06:21)
[2018-05-22] MEDS: INSULIN SLIDING SCALE (NOVOLOG) 1 VIAL SQ SCH ×2 (06:24→11:14)
[2018-05-22] MEDS: LACTULOSE 20 GM/30 ML UDC (FOR ORAL USE ONLY) PO SCH (10:00)
[2018-05-22] MEDS: FOLIC ACID 1 MG TABLET (FP) PO SCH (10:00)
[2018-05-22] MEDS: CHOLECALCIFEROL (VITAMIN D3) 1,000 UNIT TABLET (FP) PO SCH (10:00)
[2018-05-22] MEDS: ISOSORBIDE MONONITRATE 30 MG TAB.SR.24H (FP) PO SCH (10:00)
[2018-05-22] MEDS: RANOLAZINE E.R. 500 MG TABLET (FP) PO SCH (10:01)
[2018-05-22] MEDS: LOSARTAN POTASSIUM 50 MG TABLET (FP) PO SCH (10:01)
[2018-05-22] MEDS: DOCUSATE SODIUM 100 MG CAPSULE (FP) PO SCH (10:01)
[2018-05-22] MEDS: APIXABAN 5 MG TABLET PO SCH (10:01)
--- NOTE | 2018-05-22 11:15 | PN ---
Progress Note, Physician Chief Complaint: stable less pain; UA UCX not done, pt non cooperant; will DC to [place] and f/u [place] - Current Medication List Current Medications: Active Medications Acetaminophen (Tylenol -) 650 mg PO Q6H PRN PRN Reason: FEVER Last Admin: 05/22/18 06:21 Dose: 650 mg Albuterol Sulfate (Ventolin Hfa Inhaler -) 1 puff IH Q4H PRN PRN Reason: SHORT OF BREATH/WHEEZING Apixaban (Eliquis -) 5 mg PO BID [facility] Last Admin: 05/22/18 10:01 Dose: 5 mg Cholecalciferol (Vitamin D3 -) 4,000 unit PO DAILY [facility] Last Admin: 05/22/18 10:00 Dose: 4,000 unit Docusate Sodium (Colace -) 100 mg PO BID [facility] Last Admin: 05/22/18 10:01 Dose: 100 mg Folic Acid (Folic Acid -) 1 mg PO DAILY [facility] Last Admin: 05/22/18 10:00 Dose: 1 mg Glipizide (Glucotrol -) 2.5 mg PO DAILY@0700 [facility] Last Admin: 05/22/18 06:20 Dose: 2.5 mg Insulin Aspart (Novolog Vial Sliding Scale -) 1 vial SQ [facility]; Protocol Last Admin: 05/22/18 11:14 Dose: Not Given Isosorbide Mononitrate (Imdur -) 90 mg PO DAILY [facility] Last Admin: 05/22/18 10:00 Dose: 90 mg Lactulose (Cephulac (Oral Use)) 10 gm PO DAILY [facility] Last Admin: 05/22/18 10:00 Dose: 10 gm Levothyroxine Sodium (Synthroid -) 50 mcg PO DAILY@0700 [facility] Last Admin: 05/22/18 06:20 Dose: 50 mcg Losartan Potassium (Cozaar -) 50 mg PO DAILY [facility] Last Admin: 05/22/18 10:01 Dose: 50 mg Metformin HCl (Glucophage -) 250 mg PO DAILY@0700 [facility] Last Admin: 05/22/18 06:19 Dose: 250 mg Metoprolol Succinate (Toprol Xl -) 100 mg PO DAILY [facility] Last Admin: 05/22/18 10:01 Dose: 100 mg Nitroglycerin (Nitrostat -) 0.4 mg SL Q5M PRN PRN Reason: ANGINA Polyethylene Glycol (Miralax (For Daily Use) -) 17 gm PO DAILY PRN PRN Reason: CONSTIPATION Ranolazine (Ranexa -) 500 mg PO BID [facility] Last Admin: 05/22/18 10:01 Dose: 500 mg - Objective Vital Signs: Vital Signs Temperature 98.2 F 05/22/18 06:00 Pulse Rate 68 05/22/18 06:00 Respiratory Rate 18 05/22/18 06:00 Blood Pressure 144/64 05/22/18 06:00 O2 Sat by Pulse Oximetry (%) 98 05/22/18 06:00 Constitutional: Yes: No Distress, Calm Eyes: Yes: Conjunctiva Clear HENT: Yes: Atraumatic Neck: Yes: Supple Cardiovascular: Yes: Regular Rate and Rhythm Respiratory: Yes: CTA Bilaterally Gastrointestinal: Yes: Soft. No: Distention Genitourinary: No: CVA Tenderness - Left, CVA Tenderness - Right Musculoskeletal: No: Joint Stiffness, Joint Swelling Extremities: No: Cold, Cool, Cyanosis Edema: No Integumentary: No: Rash, Venous Stasis Changes Neurological: Yes: WNL, Alert, Oriented ...Motor Strength: WNL Psychiatric: Yes: WNL, Alert, Oriented. No: Agitated, Suicidal Ideation Labs: CBC, BMP 05/19/18 20:50 05/19/18 20:50 - ....Imaging Other: Report Reviewed Assessment/Plan 83 F with h/o HTN, DM, COPD, dementia, hypothyroidism, CAD s/p stent placement x 5, A-fib on Eliquis who p/w BL hip pain after falling [place]. stable DC [place] to check UCx [place] d/w H and NH staff
[2018-05-22 15:48] VITALS: BP 111/52; PULSE 65; TEMP 98.5
== END 2018-05-22 18:10 ==
LOC: JER 14:00 → JERBED 21:04 → J6S 23:43
PROVIDERS: ADMIT Internal Medicine; ATTEND Internal Medicine
DX: S70.02XA Contusion of left hip, initial encounter (principal); W06.XXXA Fall from bed, initial encounter; Z91.81 History of falling; Y93.89 Activity, other specified; Y92.122 Bedroom in nursing home as the place of occurrence of the external cause; Y99.8 Other external cause status; I25.119 Atherosclerotic heart disease of native coronary artery with unspecified angina pectoris; I10 Essential (primary) hypertension; Z95.5 Presence of coronary angioplasty implant and graft; I48.91 Unspecified atrial fibrillation; Z79.01 Long term (current) use of anticoagulants; R01.1 Cardiac murmur, unspecified; E11.9 Type 2 diabetes mellitus without complications; Z79.4 Long term (current) use of insulin; E03.9 Hypothyroidism, unspecified; J44.9 Chronic obstructive pulmonary disease, unspecified; F03.90 Unspecified dementia, unspecified severity, without behavioral disturbance, psychotic disturbance, mood disturbance, and anxiety; R26.2 Difficulty in walking, not elsewhere classified; Z99.89 Dependence on other enabling machines and devices; Z86.73 Personal history of transient ischemic attack (TIA), and cerebral infarction without residual deficits; Z88.0 Allergy status to penicillin; Z88.8 Allergy status to other drugs, medicaments and biological substances; Z86.718 Personal history of other venous thrombosis and embolism
CPT/HCPCS: 36415; 70450-TC; 72131-TC; 72192-TC; 73523-TC-FY; 80053; 82962; 85025; 97116-GP; 97161-GP; 99284-25; G0378

== ENCOUNTER 2019-06-09 19:05 | Emergency (ER) | payer OTHER ==
--- NOTE | 2019-06-09 19:26 | PDOC ---
History of Present Illness - General Chief Complaint: Injury Stated Complaint: INJURIED TO HEAD Time Seen by Provider: 06/09/19 19:17 - History of Present Illness Initial Comments: 06/09/19 19:22 HPI: 84 y/o F with hx of HTN, DM, COPD, dementia, hypothyroidism, CAD s/p stent placement x 5, A-fib on Eliquis presenting with witnessed fall with no LOC. She was sitting on the side of her bed when she fell forward on to her left side. She reports left arm pain, left foot pain, and left hip pain. She had mild pain at the hematoma site on her forehead. She is unable to answer remainder of questions 2/2 dementia PMHx: as noted above ROS: as noted SHx: Denies tobacco use; no alcohol use; no rec drugs Allergies: NKDA ROS: unable to perform 2/2 dementia PE: GENERAL: Awake, a&ox1 to person HEAD: left forehead hematoma 3cm in diameter, ttp EYES: EOMI, PERRLA, sclera anicteric, conjunctiva clear ENT: Auricles normal inspection, hearing grossly normal, nares patent, oropharynx clear without exudates. Moist mucosa NECK: Normal ROM, no lymphadenopathy, no midline ttp LUNGS: No increased work of breathing, symmetrical chest rise, clear to auscultation bilaterally, no wheezes, crackles or rhonchi HEART: Regular rate and rhythm, normal S1 and S2, no murmur, peripheral pulses 2 + and equal bilaterally. ABDOMEN: Soft, nondistended, nontender, normoactive bowel sounds. No guarding, no rebound. No masses. No CVAT MUSCULOSKELETAL: skin tear on left wrist, vague ttp at left wrsit and forearm, left foot with ttp, BL LE pitting edema NEUROLOGICAL: Cranial nerves II through XII grossly intact. Normal speech, normal gait, no focal sensorimotor deficits SKIN: Warm, Dry, normal turgor, no rashes or lesions noted Past History - Past Medical History Allergies/Adverse Reactions: Allergies Allergy/AdvReac Type Severity Reaction Status Date / Time Penicillins Allergy Intermediate Rash Verified 05/19/18 14:08 oxycodone HCl [From Percocet] AdvReac Intermediate Verified 05/19/18 14:08 prednisone AdvReac Verified 05/19/18 14:08 Home Medications: Ambulatory Orders Acetaminophen [Tylenol .Regular Strength -] 650 mg PO Q6H PRN #120 tablet Apixaban [Eliquis -] 5 mg PO BID #180 tablet 04/27/16 Levothyroxine [Synthroid -] 50 mcg PO DAILY@0700 #90 tablet 04/27/16 Metoprolol Succinate [Toprol XL -] 100 mg PO DAILY #90 tab.sr.24h 04/27/16 Polyethylene Glycol 3350 [Miralax 119 gm Btl -] 17 gm PO DAILY PRN #90 bottle Ranolazine [Ranexa] 500 mg PO BID #180 tab.er.12h 04/27/16 Cholecalciferol (Vitamin D3) [Vitamin D3 -] 4,000 unit PO DAILY 05/31/16 Docusate Sodium [Colace -] 100 mg PO BID 05/31/16 Albuterol Sulfate Inhaler - [Ventolin HFA Inhaler -] 1 inh PO Q4H PRN 08/19/16 Losartan Potassium [Cozaar -] 50 mg PO DAILY tablet 08/28/16 Lactulose 10 gm PO DAILY 11/12/16 Glipizide/Metformin HCl [Glipizide-Metformin 5-500 mg] 0.5 each PO DAILY Insulin Sliding Scale [Novolog Vial Sliding Scale -] 0 units SQ ACHS PRN Isosorbide Mononitrate [Imdur -] 90 mg PO DAILY 02/06/17 Nitroglycerin Sublingual [Nitrostat -] 0.4 mg SL ASDIR PRN 02/06/17 Folic Acid 1 mg PO DAILY 05/19/18 Anemia: No Asthma: Yes Cardiac Disorders: Yes (CAD, Stents, angina) CVA: No COPD: Yes Dementia: Yes Diabetes: Yes GI Disorders: Yes (esophageal reflux) Disorders: No HTN: Yes Hypercholesterolemia: Yes Liver Disease: No Seizures: No Thyroid Disease: Yes (hypo) - Surgical History Abdominal Surgery: Yes Appendectomy: Yes Cardiac Surgery: Yes (STENTS X 5) Cholecystectomy: No Lung Surgery: No Neurologic Surgery: No - Immunization History Immunization Up to Date: Yes - Psycho Social/Smoking Cessation Hx Smoking Status: No Smoking History: Never smoked Have you smoked in the past 12 months: No Number of Cigarettes Smoked Daily: 0 If you are a former smoker, when did you quit?: 30 yrs ago Cigars Per Day: 0 Hx Alcohol Use: No Drug/Substance Use Hx: No Substance Use Type: None Hx Substance Use Treatment: No ED Treatment Course - LABORATORY CBC & Chemistry Diagram: 06/09/19 20:00 06/09/19 20:00 Medical Decision Making - Medical Decision Making 06/09/19 22:14 84 y/o F with hx of HTN, DM, COPD, dementia, hypothyroidism, CAD s/p stent placement x 5, A-fib on Eliquis presenting with witnessed fall and head trauma with no LOC. VSS, AF. PE with left forehead hematoma and left wrist skin tear; also with left wrist, hip, foot ttp. Will ruleout hemorrhage and fx -CT head, CT spine, XR left hip, left hand, left foot, pelvis, cxr, cbc, cmp, trop, coags, ua 06/10/19 00:53 imaging and labs unremarkable will Dc back to [place] Discharge - Discharge Information Problems reviewed: Yes Clinical Impression/Diagnosis: Hematoma Fall Qualifiers: Encounter type: initial encounter Qualified Code(s): W19.XXXA - Unspecified fall, initial encounter Condition: Fair Disposition: LONGTERM FACILITY - Follow up/Referral - Patient Discharge Instructions Patient Printed Discharge Instructions: How to Prevent Falls - Post Discharge Activity
[2019-06-09 19:29] VITALS: BMI 27.1
[2019-06-09 20:32] LABS: BASO % 0.3 % (0-2.0); EOS % 0.7 % (0-4.5); HEMATOCRIT 41.4 % (32.4-45.2); HEMOGLOBIN 13.7 GM/dL (10.7-15.3); MCH 31.4 pg (25.7-33.7); MEAN CELL VOLUME 95.2 fl (80-96); MEAN PLT VOLUME 10.6 fl (7.5-11.1); MONO % 7.4 % (3.8-10.2); NEUT % 65.6 % (42.8-82.8); PLATELET COUNT 187 K/MM3 (134-434); RBC 4.35 M/mm3 (3.60-5.2); RDW 13.6 % (11.6-15.6); WHITE BLOOD COUNT 6.1 K/mm3 (4.0-10.0)
--- NOTE | 2019-06-09 20:53 | PDOC ---
Documentation entered by Clare Singh SCRIBE, acting as scribe for Colette Michaud DO. Colette Michaud DO: This documentation has been prepared by the cari, Clare Singh SCRIBE, under my direction and personally reviewed by me in its entirety. I confirm that the documentation accurately reflects all work, treatment, procedures, and medical decision making performed by me. Attending Attestation - Resident Resident Name: Lili Moralez - ED Attending Attestation I have performed the following: I have examined & evaluated the patient, The case was reviewed & discussed with the resident, I agree w/resident's findings & plan, Exceptions are as noted - HPI HPI: 06/09/19 20:03 Patient is an 84 year old female with a significant PMH of HTN, DM, COPD, dementia, hypothyroidism, CAD s/p stent placement x 5, A-fib on Eliquis who presents to the ED from [facility] s/p witness fall. Denies LOC. Patient states she fell forward and hit her left side. Pt c/o of arm, foot and pelvic pain. She denies recent fevers, chills, headache or dizziness. She denies recent nausea, vomit, diarrhea or constipation. She denies recent dysuria, frequency, urgency or hematuria. - Physicial Exam PE: 06/09/19 20:04 Constitutional: Awake, alert, oriented x1 No acute distress. Head: Normocephalic. L frontal hematoma Eyes: PERRL. EOMI. Conjunctivae are not pale. ENT: Mucous membranes are moist and intact. Posterior pharynx without exudates or erythema. Uvula midline. Neck: Supple. Full ROM. No lymphadenopathy. no midline ttp, no stepoffs or deformities Cardiovascular: Regular rate. Regular rhythm. S1, S2 regular. Distal pulses are 2+ and symmetric. Pulmonary/Chest: No evidence of respiratory distress. Clear to auscultation bilaterally No wheezing, rales or rhonchi. no chest wall ttp Abdominal: Soft and non-distended. There is no tenderness. No rebound, guarding or rigidity. No organomegaly. No palpable masses. Good bowel sounds. Back: No CVA tenderness.no midline ttp, no stepoffs or deformities Musculoskeletal: No edema. No cyanosis. No clubbing. L hip ttp on rom and palpation, Nocalf tenderness. Radial/pedal pulses are intact and 2+ bilaterally , L foot ttp, b/l foot edema, L little toenail with scant amount of blood from the nailbed and ttp, L forearm skin tear, L wrist ttp Skin: Skin is warm and dry. No petechiae. No purpura. Neurological: aaox1, moves all extremities, follows all commands, poor historian, no focal deficits in muscle strength or sensation Psychiatric: Good eye contact. Normal interaction, affect and behavior. 06/09/19 20:48 06/09/19 20:51 - Medical Decision Making 06/09/19 20:50 a/p: 84yo female s/p witness fall -L forearm skin tear and ttp over wrist and hand -L wrist ttp -L pelvis ttp with rom -L frontal hematoma -will send labs, ua, ct head, c spine, xrays -will monitor and reassess -pt with a fall on eliquis -will need repeat neuro exams 06/09/19 20:53 no elevated wbc hgb stable 06/09/19 21:50 cxr, L hip, pelvis, foot, forearm, wrist/hand xrays without acute fx-lots of arthritis and djd, pending official read by radiology 06/09/19 22:22 head and c spine without acute findings 06/10/19 00:51 labs reviewed no dysuria pt at baseline ms no acute injury, stable for dc back to [place] Heart Score/ECG Review - ECG Intrepretation Comment:: 06/09/19 20:52 sinus tach at 110, nl axis, qtc 454, q waves septally which are age indeterminate, t wave inversions lateral leads, abnl ekg
[2019-06-09] MEDS ORDERED: ACETAMINOPHEN 325 MG TABLET (FP) PO ONE (20:54)
[2019-06-09 20:56] LABS: INR 1.06 (0.83-1.09); PROTHROMBIN TIME (PATIENT) 12.5 SEC (9.7-13.0)
[2019-06-09 21:08] LABS: ALBUMIN 3.4 g/dl (3.4-5.0); ALK PHOS 52 U/L (45-117); ANION GAP 6 MMOL/L (8-16); BILIRUBIN,TOTAL 0.5 mg/dL (0.2-1); BLOOD UREA NITROGEN 16.7 mg/dL (7-18); CALCIUM 9.5 mg/dL (8.5-10.1); CHLORIDE 106 mmol/L (98-107); CO2 29 mmol/L (21-32); GLUCOSE,RANDOM 208 mg/dL (74-106); POTASSIUM 4.3 mmol/L (3.5-5.1); SGOT/AST 37 U/L (15-37); SGPT/ALT 18 U/L (13-61); SODIUM 141 mmol/L (136-145); TOT PROT 7.5 g/dl (6.4-8.2)
[2019-06-09] MEDS ORDERED: ACETAMINOPHEN 325 MG TABLET (FP) ONE (22:04)
[2019-06-10 00:28] LABS: EPI CELLS 0.5 /HPF (0-5/HPF); HYALINE CASTS 0 /lpf (0-8); URINE APPEARANCE CLOUDY; URINE BACTERIA 4074.2 /hpf (NEGATIVE); URINE BILIRUBIN NEGATIVE (NEGATIVE); URINE COLOR YELLOW; URINE GLUCOSE (UA) NEGATIVE (NEGATIVE); URINE KETONE NEGATIVE (NEGATIVE); URINE LEUK ESTERASE TRACE (NEGATIVE); URINE NITRITE NEGATIVE (NEGATIVE); URINE PROTEIN TRACE (NEGATIVE); URINE RBC 1 /hpf (0-4); URINE UROBILINOGEN 0.2 mg/dL (0.2-1.0); URINE WBC 1 /hpf (0-5)
[2019-06-10 01:19] VITALS: BP 136/69; PULSE 90; TEMP 97.9
--- NOTE | 2019-06-10 14:03 | EKG ---
Test Reason : Blood Pressure : / mmHG Vent. Rate : 110 BPM Atrial Rate : 110 BPM P-R Int : 178 ms QRS Dur : 058 ms QT Int : 336 ms P-R-T Axes : 064 021 135 degrees QTc Int : 454 ms SINUS TACHYCARDIA NONSPECIFIC ST AND T WAVE ABNORMALITY ABNORMAL ECG WHEN COMPARED WITH ECG OF 06-FEB-2017 13:43, VENT. RATE HAS INCREASED BY 46 BPM NONSPECIFIC T WAVE ABNORMALITY, WORSE IN INFERIOR LEADS Confirmed by TAHIR WATTERS MD ([id number]) on 06/10/2019 2:03:04 PM Referred By: Confirmed By:TAHIR WATTERS MD
== END 2019-06-10 01:19 ==
LOC: JER 19:05
DX: S00.83XA Contusion of other part of head, initial encounter (principal); Y93.89 Activity, other specified; W06.XXXA Fall from bed, initial encounter; Y92.122 Bedroom in nursing home as the place of occurrence of the external cause; Y99.8 Other external cause status; I25.119 Atherosclerotic heart disease of native coronary artery with unspecified angina pectoris; I10 Essential (primary) hypertension; Z95.5 Presence of coronary angioplasty implant and graft; I48.91 Unspecified atrial fibrillation; Z79.01 Long term (current) use of anticoagulants; E03.9 Hypothyroidism, unspecified; E11.9 Type 2 diabetes mellitus without complications; Z79.4 Long term (current) use of insulin; J44.9 Chronic obstructive pulmonary disease, unspecified; F03.90 Unspecified dementia, unspecified severity, without behavioral disturbance, psychotic disturbance, mood disturbance, and anxiety; K21.9 Gastro-esophageal reflux disease without esophagitis; Z88.0 Allergy status to penicillin; Z88.6 Allergy status to analgesic agent; Z88.8 Allergy status to other drugs, medicaments and biological substances
CPT/HCPCS: 36415; 70450-TC; 71045-TC-FY; 72125-TC; 72170-TC-FY; 73090-TC-LT-FY; 73110-TC-LT-FY; 73130-TC-LT-FY; 73502-TC-LT-FY; 73630-TC-LT; 80053; 81003; 84484; 85025; 85610; 85730; 93005; 93010; 99283-25